=== PATIENT | male | born 1970 | race Caucasian/White ===

== ENCOUNTER 2016-04-09 14:46 | Inpatient (IN) | payer OTHER ==
[~2016-04-09] VITALS: Ht 172.7 cm; Wt 150.5 kg
[~2016-04-09 14:46] MED LIST: ALBINS/ INH; CYCL10TA6 PO; SNG10 PO; VNTHFA/IN INH
[2016-04-09] MEDS ORDERED: SODIUM CHLORIDE 0.9% 1000ML 1,000 ML IV STA (15:05)
[2016-04-09] MEDS ORDERED: SODIUM CHLORIDE 0.9% 1000ML 250 ML IV STA (15:05)
--- NOTE | 2016-04-09 15:05 | EMERGENCY ROOM VISIT NOTE ---
History Report prepared by Zenon: Davian Pérez Under the Supervision of: Dr. Lamberto Kaur M.D. First contact with patient: 15:00 Chief Complaint: STROKE SYMPTOMS Stated Complaint: STROKE SX History of Present Illness The patient is a 45 year old male who presents to the Emergency Room with complaints of acute left-sided weakness. The patient complains of left arm weakness, left sided numbness and tingling, speech slurring and a headache. The patient was last known well at 1415. He was on break at [facility] when the symptoms began. The patient denies any history of strokes, seizures, or diabetes. He does have a history of asthma and COPD. He is not on any blood thinners. This started after he coughed and became unresponsive Source of History: patient, family, EMS Onset: 1415 Position: other (left side) Quality: other (weakness) Timing: other (acute) Associated Symptoms: + headache, + numbness Review of Systems See HPI for pertinent positives & negatives. A total of 10 systems reviewed and were otherwise negative. Past Medical & Surgical Medical Problems: (1) ASTHMA, UNSPECIFIED (2) Body Mass Index 40.0-44.9, Adult (3) CVA (cerebral vascular accident) (4) Esophageal Reflux (5) Hypertension Nos (6) Morbid Obesity (7) Personal History, Pneumonia (Recurrent) (8) Personal Hx Of Tia,& Cerebral Infarction W/Out Res Deficits (9) s/p multiple knee surgeries Old medical records were reviewed. Nurse's notes were reviewed and I agree with. No history of CVA/TIA/arrhythmia He did have right sided weakness about 5 years ago and had a negative workup. Family History Diabetes mellitus Gallbladder disease Hypertension Social History Smoking Status: Never Smoker Alcohol Use: none Drug Use: none Marital Status: single Housing Status: lives with family Occupation Status: employed Current/Historical Medications Scheduled Budesonide/Formoterol Fumarate (Symbicort 160/4.5 Inhaler ), 2 PUFFS INH BID Montelukast Sod (Montelukast Sodium), 10 MG PO HS Scheduled PRN Albuterol Hfa (Ventolin Hfa), 2 PUFFS INH QID PRN for Rescue/Asthma Symptoms Albuterol Sulf (Proventil 0.083% 2.5MG/3ML), 2.5 MG INH Q4HR PRN for SOB/ Wheezing Cyclobenzaprine Hcl (Flexeril), 10 MG PO TID PRN for Muscle Spasms Allergies Coded Allergies: Aspirin (Verified Allergy, Unknown, 04/09/16) Morphine (Verified Adverse Reaction, Intermediate, "FLIP OUT", 04/09/16) Physical Exam Vital Signs Date Time Temp Pulse Resp B/P Pulse Ox O2 Delivery O2 Flow Rate FiO2 04/09/16 17:44 151/112 04/09/16 17:33 88 100 04/09/16 17:29 152/115 04/09/16 17:03 91 98 04/09/16 16:58 191/128 04/09/16 16:44 188/139 04/09/16 16:33 89 97 04/09/16 16:28 167/130 04/09/16 16:16 87 100 04/09/16 16:13 174/114 04/09/16 16:04 167/111 04/09/16 15:58 167/112 04/09/16 15:46 80 100 04/09/16 15:38 82 16 158/108 98 Room Air 04/09/16 15:36 158/108 04/09/16 15:16 92 99 04/09/16 15:07 92 04/09/16 14:55 98 Room Air 04/09/16 14:55 36.8 93 16 124/61 94 Room Air 04/09/16 14:51 124/61 Physical Exam General: Obese middle aged male, appears to be in no acute distress, answers questions appropriately but somewhat slowly. HEENT: Normal cephalic atraumatic. Pupils are equal round and reactive to light. Sclera are anicteric. Extraocular movements are intact. Oropharynx is pink with moist mucous membranes. No swelling of the mouth lips or tongue. Neck: Supple with a midline trachea. No meningeal signs or stiffness, no JVD or bruits. No Stridor. Chest: Clear to auscultation bilaterally. No wheezes or rhonchi. No increased work of breathing. Heart: regular rate and rhythm. Abdomen: Soft nontender, nondistended without rebound guarding or rigidity. Extremities: No cyanosis clubbing or edema. No calf tenderness or assymetry Spine/Back. Non tender to palpation. No CVA tenderness Skin: Good turgor without rashes. Neurologic exam: Cranial nerves two through 12 are intact. Mild weakness of the left arm and leg compared to the right. Medical Decision & Procedures ER Provider Diagnostic Interpretation: X ray results as stated below per my interpretation and radiologist interpretation. Other radiology results as stated below per my review and radiologist interpretation: HEAD CT NONCONTRAST CT DOSE: 623.48 mGy.cm HISTORY: stroke symptoms TECHNIQUE: Multiaxial CT images of the head were performed without the use of intravenous contrast. Automated exposure control was utilized for this study. Comparison: Head CT 04/05/2015. Findings: Mild mucosal thickening within the maxillary sinuses. The mastoid air cells are clear. The calvarium and skull base are intact. The ventricles and sulci are within normal limits. There is no mass, hematoma, midline shift, or acute infarct. Impression: No acute intracranial abnormality. Electronically signed by: Claus Mcgovern M.D. 04/09/2016 3:15 PM Dictated Date/Time: 04/09/2016 3:11 PM CHEST ONE VIEW PORTABLE HISTORY: Atypical CHEST PAIN COMPARISON: Chest 12/09/2015. FINDINGS: There are low lung volumes. The lungs are clear. No pleural effusions. No pneumothorax. The heart remains borderline enlarged. IMPRESSION: No significant change compared to the prior study. No acute process. Electronically signed by: Claus Mcgovern M.D. 04/09/2016 3:41 PM Dictated Date/Time: 04/09/2016 3:40 PM Laboratory Results 04/09/16 15:28 04/09/16 15:28 Test 04/09/16 14:54 04/09/16 15:27 04/09/16 15:28 04/09/16 15:32 Bedside Glucose 87 mg/dl (70-99) Bedside Hemoglobin 15.3 g/dl (14.0-18.0) Bedside Hematocrit 45 % (42-52) Bedside Sodium 141 mEq/L (135-144) Bedside Potassium 4.1 mEq/L (3.3-5.0) Bedside Chloride 101 mEq/L (101-112) Bedside Total CO2 28 mEq/l (24-31) Bedside Blood Urea Nitrogen 16 mg/dl (7-18) Bedside Creatinine 0.8 mg/dl (0.6-1.3) Bedside Glucose (other) 99 mg/dl (70-99) Bedside Ionized Calcium (Liliane) 1.16 mmol/l (1.12-1.32) Red Blood Count 4.68 M/uL (4.7-6.1) Mean Corpuscular Volume 91.7 fL (80-100) Mean Corpuscular Hemoglobin 30.1 pg (25-34) Mean Corpuscular Hemoglobin Concent 32.9 g/dl (32-36) RDW Standard Deviation 45.3 fL (36.4-46.3) RDW Coefficient of Variation 13.7 % (11.5-14.5) Mean Platelet Volume 10.4 fL (7.4-10.4) Prothrombin Time 10.2 SECONDS (9.0-12.0) Prothromb Time International Ratio 1.0 (0.9-1.1) Activated Partial Thromboplast Time 26.9 SECONDS (21.0-31.0) Partial Thromboplastin Ratio 1.0 D-Dimer 410 ug/L FEU (0-500) Anion Gap 8.0 mmol/L (3-11) Est Creatinine Clear Calc Drug Dose 146.8 ml/min Estimated GFR () 116.7 Estimated GFR (Non- 100.7 BUN/Creatinine Ratio 16.3 (10-20) Calcium Level 8.7 mg/dl (8.5-10.1) Total Bilirubin 0.6 mg/dl (0.2-1) Aspartate Amino Transf (AST/SGOT) 26 U/L (15-37) Alanine Aminotransferase (ALT/SGPT) 39 U/L (12-78) Alkaline Phosphatase 137 U/L (45-117) Total Protein 7.2 gm/dl (6.4-8.2) Albumin 3.6 gm/dl (3.4-5.0) Globulin 3.6 gm/dl (2.5-4.0) Albumin/Globulin Ratio 1.0 (0.9-2) Bedside Troponin I 0.000 ng/ml (0-0.045) Test 04/09/16 16:59 Laboratory studies as stated above per my review. Medications Administered Medications (Trade) Dose Ordered Sig/Chapin Route Start Time Stop Time Status Last Admin Dose Admin Sodium Chloride 250 ml @ 999 mls/hr Q16M STAT IV 04/09/16 15:05 04/09/16 15:20 DC 04/09/16 15:46 999 MLS/HR Sodium Chloride (Nss 1000ml) 1,000 ml @ 100 mls/hr Q10H STAT IV 04/09/16 15:05 04/10/16 01:04 04/09/16 16:34 100 MLS/HR Clopidogrel Bisulfate (plAVix TAB) 75 mg NOW ONCE PO 04/09/16 17:00 04/09/16 17:15 DC 04/09/16 17:21 75 MG ECG Indication: weakness Rate (beats per minute): 90 Rhythm: normal sinus Findings: no acute ischemic change, no ectopy Comparison ECG Date: 2015 Change: no significant change ED Course 1500: Past medical records reviewed. The patient was evaluated in room B1, and a complete history and physical examination were performed. 1504: Stroke alert called. 1505: NSS 1000 ml @ 100 mls/hr, NSS 250 ml @ 999 mls/hr. 1535: Patient is markedly improved. He has good pipe connector strength and is able to move his leg, no asphasia. 1538: Dr. Pak, [place] Neurologist, will evaluate the patient through Tele- stroke. 1620: Dr. Pak evaluated the patient. He does not believe that he is a tPA candidate at this time. 1628: Discussed the case with DELROY Pozo, [facility] Hospitalist. The patient will be evaluated. Medical Decision Differential diagnosis includes CVA, TIA, hypoglycemia, anxiety, migraine, electrolyte or metabolic abnormality. This patient comes in as described above. I promptly saw him as he was placed in room B1 with strokelike symptoms. The symptoms occurred about 45 minutes prior to arrival. He apparently coughed and may have passed out and when they arrived he was weak on his left side and had apparent trouble speaking. on my initial evaluation, he sees a doing better .he does have some mild weakness of his left side but has no significant aphasia of those speaking mildly slow. He denies that he hurts anywhere. Denies headache at present. He's had no fever chills or recent illness. denies any shortness of breath. I did call a stroke alert given the timeframe. He had a stat CAT scan of his head was unremarkable. An extensive work-up was obtained, EKG and chest x-ray obtained. by the time, he got back from the CT seem like his symptoms had completely resolved. Dr. Still, the stroke teleneurologist, did evaluate him and agrees and feels he does not need TPA and he thinks this may actually not even be a stroke. It may have been more migrainous or stress related. At this point the patient does need a further stroke workup to rule out the possibility of a TIA or stroke. He has no electrolyte or metabolic abnormalities. He has nothing to suggest infection. He will be admitted to the [facility] team for further treatment and evaluation. Consults Time Called: 1619 Consulting Physician: [facility] Neurologist Returned Call: [phone]: Dr. Pak evaluated the patient. He does not believe that he is a tPA candidate at this time. Additional Consults: Time Called: 1619 Consulted Physician: DELROY Pozo, [facility] Returned Call: 1627 Additional Comments: 1627: [facility] The patient will be evaluated. Impression Primary Impression: TIA (transient ischemic attack) Additional Impression: Left-sided weakness Critical Care Due to the patient's stroke-like symptoms and need to call a code stroke and frequent reassessment and evaluation and discussion with consultants and family , I have personally spent greater than 30 minutes of critical care time in the direct management of this patient. This includes bedside care, interpretation of diagnostic studies, and testing, discussion with consultants, patient, and family members, and other required patient management activities. This 30 minutes is in excess of all separately billable procedures. Scribe Attestation The scribe's documentation has been prepared under my direction and personally reviewed by me in its entirety. I confirm that the note above accurately reflects all work, treatment, procedures, and medical decision making performed by me. Departure Information Dispostion Being Evaluated By Hospitalist Referrals Jeison Gandhi III, M.D. (PCP) Patient Instructions My [facility] Problem Qualifiers
--- NOTE | 2016-04-09 15:16 | DIAGNOSTIC IMAGING REPORT ---
HEAD CT NONCONTRAST CT DOSE: 623.48 mGy.cm HISTORY: stroke symptoms TECHNIQUE: Multiaxial CT images of the head were performed without the use of intravenous contrast. Automated exposure control was utilized for this study. Comparison: Head CT 04/05/2015. Findings: Mild mucosal thickening within the maxillary sinuses. The mastoid air cells are clear. The calvarium and skull base are intact. The ventricles and sulci are within normal limits. There is no mass, hematoma, midline shift, or acute infarct. Impression: No acute intracranial abnormality. Electronically signed by: Claus Mcgovern M.D. 04/09/2016 3:15 PM Dictated Date/Time: 04/09/2016 3:11 PM
[2016-04-09 15:35] LABS: HEMATOCRIT 42.9 % (42-52); MEAN CELL VOLUME 91.7 fL (80-100); MEAN CORPUSCULAR HEMOGLOBIN 30.1 pg (25-34); MEAN CORPUSCULAR HGB CONC 32.9 g/dl (32-36); MEAN PLATELET VOLUME 10.4 fL (7.4-10.4); PLATELET COUNT 250 K/uL (130-400); RED BLOOD COUNT 4.68 M/uL (4.7-6.1); WHITE BLOOD COUNT 11.41 K/uL (4.8-10.8)
--- NOTE | 2016-04-09 15:42 | DIAGNOSTIC IMAGING REPORT ---
CHEST ONE VIEW PORTABLE HISTORY: Atypical CHEST PAIN COMPARISON: Chest 12/09/2015. FINDINGS: There are low lung volumes. The lungs are clear. No pleural effusions. No pneumothorax. The heart remains borderline enlarged. IMPRESSION: No significant change compared to the prior study. No acute process. Electronically signed by: Claus Mcgovern M.D. 04/09/2016 3:41 PM Dictated Date/Time: 04/09/2016 3:40 PM
[2016-04-09 15:43] LABS: ISTAT CREATININE 0.8 mg/dl (0.6-1.3); ISTAT HEMOGLOBIN 15.3 g/dl (14.0-18.0); ISTAT IONIZED CALCIUM 1.16 mmol/l (1.12-1.32)
[2016-04-09] MEDS ORDERED: SYMIN160 INH (15:47)
[2016-04-09 15:55] LABS: BUN/CREATININE RATIO 16.3 (10-20); CALCIUM 8.7 mg/dl (8.5-10.1); CREATININE 0.91 mg/dl (0.60-1.40); POTASSIUM 4.1 mmol/L (3.5-5.1)
[2016-04-09 16:01] LABS: PROTHROMBIN TIME (PATIENT) 10.2 SECONDS (9.0-12.0)
[2016-04-09] MEDS ORDERED: ONDANSETRON INJ 2 MG/ML 2 ML VIAL IV PRN (17:00)
[2016-04-09] MEDS ORDERED: CLOPIDOGREL BISULFATE 75 MG TAB PO ONE (17:00)
[2016-04-09] MEDS ORDERED: NITROGLYCERIN 0.4 MG SL PER TAB CHARGE SL PRN (17:00)
[2016-04-09] MEDS ORDERED: MAGNESIUM HYDROXIDE SUSP 30 ML UDC PO PRN (17:00)
[2016-04-09] MEDS ORDERED: ALBUTEROL 0.083% NEBU SOLN 3 ML VIAL INH PRN (17:00)
[2016-04-09] MEDS ORDERED: ACETAMINOPHEN 325 MG TAB PO PRN (17:00)
[2016-04-09] MEDS ORDERED: PHARMACIST DISCHARGE MED REC CONSULT PRN (17:00)
[2016-04-09] MEDS ORDERED: ALBUTEROL HFA 8 GM INHALER INH PRN (17:00)
[2016-04-09] MEDS ORDERED: CLONIDINE HCL 0.1 MG TAB PO PRN (17:30)
[2016-04-09] MEDS ORDERED: HydrALAZINE HCL 20 MG/ML VIAL IV. PRN (17:30)
--- NOTE | 2016-04-09 18:58 | DIAGNOSTIC IMAGING REPORT ---
BILATERAL CAROTID DOPPLER STUDY HISTORY: Stroke symptoms. COMPARISON: Carotid Doppler 02/18/2009. TECHNIQUE: Real-time, grayscale, and color Doppler sonography of the carotid arteries was performed. Imaging reviewed in the transverse and longitudinal planes. All measurements were calculated based on NASCET criteria. FINDINGS: Antegrade flow is seen in the bilateral vertebral arteries. The brachial pressures are hemodynamically similar. The peak systolic velocity within the right ICA is 81 cm/s. The right systolic ratio is 0.7. The peak systolic velocity within the left ICA is 82 cm/s. The left systolic ratio is 0.6. Slightly elevated velocities within external carotid arteries measuring 142 cm/s on the right and 134 cm/s on the left. IMPRESSION: No hemodynamically significant stenosis seen within the bilateral common or internal carotid arteries. Suspect borderline stenosis of the bilateral external carotid arteries. Electronically signed by: Claus Mcgovern M.D. 04/09/2016 6:57 PM Dictated Date/Time: 04/09/2016 6:55 PM
[2016-04-09 19:09] LABS: FIBRINOGEN* 485 mg/dl (184-400)
--- NOTE | 2016-04-09 19:59 | DIAGNOSTIC IMAGING REPORT ---
Brain MRA HISTORY: Stroke - Attention to [place] TECHNIQUE: 3-D papb-ul-adlycl MRA of the brain was performed without contrast. COMPARISON STUDY: None. FINDINGS: Visualized intracranial internal carotid arteries, distal vertebral arteries, and basilar artery are widely patent. There is no significant stenosis, occlusion, or aneurysm seen within the bilateral ACAs, MCAs, or adjunct professor of voice. IMPRESSION: No significant stenosis, occlusion, or aneurysm within the [place]. Electronically signed by: Claus Mcgovern M.D. 04/09/2016 7:57 PM Dictated Date/Time: 04/09/2016 7:55 PM
[2016-04-09] MEDS ORDERED: GADAVIST IV PRN (20:00)
--- NOTE | 2016-04-09 20:00 | HISTORY & PHYSICAL EXAMINATION ---
DATE OF ADMISSION: 04/09/2016 CHIEF COMPLAINT: Unresponsive episode and left-sided weakness. HISTORY OF PRESENT ILLNESS: This is a 45-year-old male with a past medical history significant for morbid obesity, moderate persistent asthma, allergic rhinitis, anxiety state, history of cervicalgia who presents with stroke-like symptoms. The patient works in [employer] and today he went to have sandwich for his dinner, sitting on the table, suddenly he says he does not remember anything and he was brought in by the ambulance to the hospital. During the ambulance ride, he could be able to speak somewhat but does not remember. After coming to the ER he came back to his usual self, but has some weakness in the left extremities and trouble speaking for a short period of time. His symptoms improved. Stroke alert was called BUT because of the symptoms improving and the CAT scan was negative TPA was not given. Currently patient is lying comfortably, hemodynamically stable, speaking normally, says he has some mild weakness in his left extremities, but otherwise he is doing okay. He also says that he is having cough with yellowish sputum going on for last week and wheezing from his asthma. Denies any fever or chills. Denies any chest pain. Has some mild headache. No blurred visions, no abdominal pain, no nausea, no vomiting. ALLERGIES: ASPIRIN AND MORPHINE. PAST MEDICAL HISTORY: As mentioned above. PAST SURGICAL HISTORY: Knee arthroscopies and repair. MEDICATIONS: The patient is on Ventolin 2 puffs every 4 hours p.r.n., budesonide formoterol 160/4.5 mcg two puffs inhalation b.i.d., albuterol nebulization every 4 hours p.r.n., Singulair 10 mg p.o. daily. FAMILY HISTORY: Significant for father has diabetes and hypertension. Mother has high cholesterol. Sister has depression, asthma and diabetes. SOCIAL HISTORY: Single. No smoking history. Alcohol rare. No drug abuse. REVIEW OF SYMPTOMS: As per HPI. Rest of the review of symptoms negative. PHYSICAL EXAMINATION: GENERAL: The patient is morbidly obese, not in distress. VITAL SIGNS: Temperature 36.8, pulse 87, respiratory rate 16, blood pressure 167/130 and oxygen 100% on room air. HEENT: No pallor, no icterus. Pupils are equal, round and reactive to light. NECK: No JVD, no neck masses, no carotid bruits. CARDIOVASCULAR: S1, S2 heard, regular rate and rhythm, no murmur, no gallop. RESPIRATORY: Clear to auscultation bilaterally. Bilateral wheezing heard. No crackles. ABDOMEN: Soft bowel sounds present. Nontender. No distention. CENTRAL NERVOUS SYSTEM: Power 4/5 in left upper extremity. Rest of the extremities 5/5. Sensation is intact. Position sense intact. Coordination of movements normal. No pronator drift. Babinski negative. EXTREMITIES: No edema, no erythema. LABORATORIES: WBC 11.4, hemoglobin 14.1, hematocrit 42.9, platelets 250. Sodium 143, potassium 4.1, chloride 106, bicarbonate 29, BUN 15, creatinine 0.9, serum glucose 95, calcium 8.7, total bilirubin 0.6, AST 26, ALT 39, alkaline phosphatase is 137, point of care troponin 0.00. PT 10.2, INR 1, PTT 26.9. CT of the head; no acute intracranial abnormalities seen. Chest x-ray; no significant change compared to prior study, no acute process seen. EKG: Normal sinus rhythm with rate of 90. No acute ST changes seen. ASSESSMENT AND PLAN: This is a 45-year-old male, who presents with stroke-like symptoms. 1. Stroke-like symptoms; presented with syncope-like episode and after that had weakness on the left extremities and had slurred speech for short period of time. Currently says mild weakness in the left upper extremity, but can hold his left hand up against gravity. Stroke alert was called, but TPA was not given as symptoms are improving. CAT scan is negative and we will do the full stroke workup with MRI/MRA of the head, carotid Dopplers and echocardiogram.Hypercoagulable workup . We will also do a speech evaluation PT/OT. Neurology consulted and notified. We will also do EEG. PATIENT ALLERGIC TO ASPIRIN; we will place him on Plavix. We will do neuro checks. 2. Mild asthma exacerbation, will continue his home inhalers and place him on Levaquin, and Solu-Medrol. 3. Morbid obesity; may need sleep study as an outpatient. We will do a nocturnal pulse ox while in the hospital. We will also check HbA1c and fasting lipid profile as per stroke workup. 4. Hypertension, could be situational. Will allow permissive hypertension until the stroke workup is completed. We will place him on IV hydralazine p.r.n. for systolic blood pressure greater than 190 or diastolic blood pressure greater than 110. Follow echocardiogram to see for any left ventricular hypertrophy. 5. Deep venous thrombosis prophylaxis: SCDs for now. 6. Disposition: Admit to tele floor. Expect to discharge home and follow with his family doctor. Level 1 full code. MTDD
--- NOTE | 2016-04-09 20:18 | DIAGNOSTIC IMAGING REPORT ---
Brain MRI WITH AND WITHOUT CONTRAST HISTORY: Stroke TECHNIQUE: Multiplanar multisequence MRI of the brain was performed both before and after the intravenous administration of contrast. COMPARISON STUDY: Head CT 04/09/2016. FINDINGS: There are no areas of restricted diffusion to suggest acute infarction. The midline structures are intact. Mild mucosal thickening within the maxillary sinuses. The mastoid air cells are clear. The ventricles and sulci are within normal limits for age. There is no mass, hematoma, midline shift. The major vascular flow-voids at the skull base are well maintained. Postcontrast sequences show no areas of abnormal enhancement. IMPRESSION: No acute intracranial abnormality. Electronically signed by: Claus Mcgovern M.D. 04/09/2016 8:17 PM Dictated Date/Time: 04/09/2016 8:10 PM
[2016-04-09 20:20] VITALS: BP 131/86; PULSE 101; TEMP 36.6; Ht 172.7 cm; Wt 150.5 kg
[2016-04-09] MEDS ORDERED: LEVOFLOXACIN 750 MG TAB PO ONE (21:15)
[2016-04-09] MEDS: METHYLPREDNISOLONE IV 40 MG in SYRINGE 0 ML IV SCH (21:57)
[2016-04-09] MEDS: BUDESONIDE/FORMOTEROL FUMARATE 160/4.5 60 PUFFS/INHALER INH SCH (21:57)
[2016-04-09] MEDS: MONTELUKAST SOD 10 MG TAB PO SCH (21:58)
[2016-04-09] MEDS: SODIUM CHLORIDE 0.9% 1000ML 1,000 ML IV SCH (22:01)
[2016-04-09 23:40] VITALS: BP 147/84; PULSE 90; TEMP 36.6; O2SAT 94
[2016-04-10] VITALS (7 sets, daily range): BP systolic 119–147; BP diastolic 76–93; PULSE 81–90; TEMP 36.6–36.8; O2SAT 94–96
[2016-04-10 00:05] LABS: CKMB/CK RATIO 0.9 (0-3.0)
[2016-04-10 07:29] LABS: BASO % 0.2 %; BASO ABS # 0.02 K/uL (0-0.2); COMPLETE YES; EOS % 0.2 %; HEMATOCRIT 42.5 % (42-52); IG% 0.6 %; LYMPH ABS # 1.38 K/uL (1.2-3.4); MEAN CELL VOLUME 89.7 fL (80-100); MEAN CORPUSCULAR HEMOGLOBIN 29.1 pg (25-34); MEAN CORPUSCULAR HGB CONC 32.5 g/dl (32-36); MEAN PLATELET VOLUME 10.4 fL (7.4-10.4); MONO % 1.8 %; NEUT % 86.2 %; PLATELET COUNT 266 K/uL (130-400); RED BLOOD COUNT 4.74 M/uL (4.7-6.1); WHITE BLOOD COUNT 12.54 K/uL (4.8-10.8)
[2016-04-10 07:50] LABS: BLOOD UREA NITROGEN 13 mg/dl (7-18); BUN/CREATININE RATIO 16.2 (10-20); CALCIUM 8.9 mg/dl (8.5-10.1); CARBON DIOXIDE 25 mmol/L (21-32); CHLORIDE 107 mmol/L (98-107); CREATININE 0.79 mg/dl (0.60-1.40); GLUCOSE 131 mg/dl (70-99); POTASSIUM 4.3 mmol/L (3.5-5.1); SODIUM 141 mmol/L (136-145)
[2016-04-10 08:05] LABS: CHOLESTEROL 180 mg/dl (0-200); CHOLESTEROL/HDL RATIO 2.9; CKMB/CK RATIO 1.1 (0-3.0); HDL CHOLESTEROL 62 mg/dl; LDL CHOLESTEROL CALCULATED 106 mg/dl; TRIGLYCERIDES 61 mg/dl (0-150); VERY LOW DENSITY LIPOPROT CALC 12 mg/dl
[2016-04-10] MEDS: BUDESONIDE/FORMOTEROL FUMARATE 160/4.5 60 PUFFS/INHALER INH SCH ×2 (08:22→19:39)
[2016-04-10] MEDS: CLOPIDOGREL BISULFATE 75 MG TAB PO SCH (08:23)
[2016-04-10] MEDS: ATORVASTATIN 40 MG TAB PO SCH (08:23)
[2016-04-10] MEDS: METHYLPREDNISOLONE IV 40 MG in SYRINGE 0 ML IV SCH (08:23)
[2016-04-10] MEDS: SODIUM CHLORIDE 0.9% 1000ML 1,000 ML IV SCH (08:24)
--- NOTE | 2016-04-10 09:25 | Progress Note ---
Internal Med Progress Note Date of Service: Apr 10, 2016. Provider Documentation: SUBJECTIVE Patient is seen and examined at bedside. Feels well. Has chronic cough secondary to asthma. Denies any expectoration, chest pain. Slurred speech and weakness resolved. Offers no other complaints. OBJECTIVE: Vital Signs-as noted below Physical Exam: General Appearance:Obese, no apparent distress Head: normocephalic, Atraumatic Eyes: normal inspection, EOMI, PERRLA, Anicteric Neck: supple, Trachea midline Respiratory/Chest: decreased breath sounds, No accessory muscle use Cardiovascular: S1, S2, No murmur Abdomen/GI:Soft, Non tender, Bowel sounds present Extremities/Musculoskelatal:normal inspection, no edema Neurologic/Psych:AAOX3, grossly no focal neurological deficits Skin: normal color, warm Lab data as noted below. ASSESSMENT & PLAN: Stroke Like Symptoms: R/O CVA Presented with syncope, LUE weakness and slurred speech: TPA not given as symptoms resolving at time of admission Continue monitoring in Tele Continue Plavix as pt has aspirin allergy Lipid panel:wnl A1C: pending Hypercoagulable work up/EEG/ECHO: pending Neurology consulted PT/OT CT Head/MRI/MRA/Carotid Doppler: No acute process Speech evaluation, Neuro checks Mild Asthma Exacerbation: CXR:No acute process Continue Levaquin, glucocorticoids for now start steroid taper today Mild leukocytosis-likely secondary to steroids Hypertension: Likely situational Currently well controlled IV Hydralazine PRN for SBP/DBP > 190/110 FU ECHO: to look for LVH Morbid Obesity: Needs sleep study as an outpatient. FU nocturnal pulse ox study DVT Px: SCDs Code Status: Full code Disposition: Continue monitoring in Tele: Work up pending Vital Signs: Date Time Temp Pulse Resp B/P Pulse Ox O2 Delivery O2 Flow Rate FiO2 04/10/16 07:46 36.6 86 20 119/86 94 Room Air 04/10/16 04:00 Room Air 04/10/16 03:27 36.7 81 18 130/82 94 Room Air 04/10/16 00:00 Room Air 04/09/16 23:40 36.6 90 18 147/84 94 Room Air 04/09/16 20:30 Room Air 04/09/16 20:20 36.6 101 18 131/86 Room Air 04/09/16 17:44 151/112 04/09/16 17:33 88 100 04/09/16 17:29 152/115 04/09/16 17:03 91 98 04/09/16 16:58 191/128 04/09/16 16:44 188/139 04/09/16 16:33 89 97 04/09/16 16:28 167/130 04/09/16 16:16 87 100 04/09/16 16:13 174/114 04/09/16 16:04 167/111 04/09/16 15:58 167/112 04/09/16 15:46 80 100 04/09/16 15:38 82 16 158/108 98 Room Air 04/09/16 15:36 158/108 04/09/16 15:16 92 99 04/09/16 15:07 92 04/09/16 14:55 98 Room Air 04/09/16 14:55 36.8 93 16 124/61 94 Room Air 04/09/16 14:51 124/61 Lab Results: Results Past 24 Hours Test 04/09/16 14:54 04/09/16 15:27 04/09/16 15:28 04/09/16 15:32 Range/Units Bedside Glucose 87 70-99 mg/dl Bedside Hemoglobin 15.3 14.0-18.0 g/dl Bedside Hematocrit 45 42-52 % Bedside Sodium 141 135-144 mEq/L Bedside Potassium 4.1 3.3-5.0 mEq/L Bedside Chloride 101 101-112 mEq/L Bedside Total CO2 28 24-31 mEq/l Anion Gap 17.0 8.0 3-11 mmol/L Bedside Blood Urea Nitrogen 16 7-18 mg/dl Bedside Creatinine 0.8 0.6-1.3 mg/dl Bedside Glucose (other) 99 70-99 mg/dl Bedside Ionized Calcium (Liliane) 1.16 1.12-1.32 mmol/l White Blood Count 11.41 4.8-10.8 K/uL Red Blood Count 4.68 4.7-6.1 M/uL Hemoglobin 14.1 14.0-18.0 g/dL Hematocrit 42.9 42-52 % Mean Corpuscular Volume 91.7 80-100 fL Mean Corpuscular Hemoglobin 30.1 25-34 pg Mean Corpuscular Hemoglobin Concent 32.9 32-36 g/dl RDW Standard Deviation 45.3 36.4-46.3 fL RDW Coefficient of Variation 13.7 11.5-14.5 % Platelet Count 250 130-400 K/uL Mean Platelet Volume 10.4 7.4-10.4 fL Prothrombin Time 10.2 9.0-12.0 SECONDS Prothromb Time International Ratio 1.0 0.9-1.1 Activated Partial Thromboplast Time 26.9 21.0-31.0 SECONDS Partial Thromboplastin Ratio 1.0 Fibrinogen 485 184-400 mg/dl D-Dimer 410 0-500 ug/L FEU Sodium Level 143 136-145 mmol/L Potassium Level 4.1 3.5-5.1 mmol/L Chloride Level 106 98-107 mmol/L Carbon Dioxide Level 29 21-32 mmol/L Blood Urea Nitrogen 15 7-18 mg/dl Creatinine 0.91 0.60-1.40 mg/dl Est Creatinine Clear Calc Drug Dose 146.8 ml/min Estimated GFR () 116.7 Estimated GFR (Non- 100.7 BUN/Creatinine Ratio 16.3 10-20 Random Glucose 95 70-99 mg/dl Calcium Level 8.7 8.5-10.1 mg/dl Total Bilirubin 0.6 0.2-1 mg/dl Aspartate Amino Transf (AST/SGOT) 26 15-37 U/L Alanine Aminotransferase (ALT/SGPT) 39 12-78 U/L Alkaline Phosphatase 137 45-117 U/L Total Protein 7.2 6.4-8.2 gm/dl Albumin 3.6 3.4-5.0 gm/dl Globulin 3.6 2.5-4.0 gm/dl Albumin/Globulin Ratio 1.0 0.9-2 Bedside Troponin I 0.000 0-0.045 ng/ml Test 04/09/16 23:10 04/10/16 07:00 Range/Units Total Creatine Kinase 252 229 39-308 U/L Creatine Kinase MB 2.2 2.5 0.5-3.6 ng/ml Creatine Kinase MB Ratio 0.9 1.1 0-3.0 Troponin I < 0.015 < 0.015 0-0.045 ng/ml White Blood Count 12.54 4.8-10.8 K/uL Red Blood Count 4.74 4.7-6.1 M/uL Hemoglobin 13.8 14.0-18.0 g/dL Hematocrit 42.5 42-52 % Mean Corpuscular Volume 89.7 80-100 fL Mean Corpuscular Hemoglobin 29.1 25-34 pg Mean Corpuscular Hemoglobin Concent 32.5 32-36 g/dl Platelet Count 266 130-400 K/uL Mean Platelet Volume 10.4 7.4-10.4 fL Neutrophils (%) (Auto) 86.2 % Lymphocytes (%) (Auto) 11.0 % Monocytes (%) (Auto) 1.8 % Eosinophils (%) (Auto) 0.2 % Basophils (%) (Auto) 0.2 % Neutrophils # (Auto) 10.82 1.4-6.5 K/uL Lymphocytes # (Auto) 1.38 1.2-3.4 K/uL Monocytes # (Auto) 0.23 0.11-0.59 K/uL Eosinophils # (Auto) 0.02 0-0.5 K/uL Basophils # (Auto) 0.02 0-0.2 K/uL RDW Standard Deviation 43.9 36.4-46.3 fL RDW Coefficient of Variation 13.4 11.5-14.5 % Immature Granulocyte % (Auto) 0.6 % Immature Granulocyte # (Auto) 0.07 0.00-0.02 K/uL Sodium Level 141 136-145 mmol/L Potassium Level 4.3 3.5-5.1 mmol/L Chloride Level 107 98-107 mmol/L Carbon Dioxide Level 25 21-32 mmol/L Anion Gap 9.0 3-11 mmol/L Blood Urea Nitrogen 13 7-18 mg/dl Creatinine 0.79 0.60-1.40 mg/dl Est Creatinine Clear Calc Drug Dose 167.3 ml/min Estimated GFR () 124.8 Estimated GFR (Non- 107.7 BUN/Creatinine Ratio 16.2 10-20 Random Glucose 131 70-99 mg/dl Calcium Level 8.9 8.5-10.1 mg/dl Triglycerides Level 61 0-150 mg/dl Cholesterol Level 180 0-200 mg/dl HDL Cholesterol 62 mg/dl LDL Cholesterol, Calculated 106 mg/dl VLDL Cholesterol, Calculated 12 mg/dl Cholesterol/HDL Ratio 2.9
[2016-04-10] MEDS ORDERED: LEVOFLOXACIN 750 MG TAB PO SCH (11:00)
--- NOTE | 2016-04-10 12:30 | CONSULTATION REPORT ---
DATE OF CONSULTATION: 04/10/2016 REFERRING PHYSICIAN: Dr. Fernandes. HISTORY OF PRESENT ILLNESS: Yogi is 45 years old and is known to Dr. Gandhi. I have seen him actually on one occasion 9 years ago when he presented with transient left-sided paresthesias followed by a headache. At that point we wondered about the possibility of atypical migraine. He really has not developed any headaches since nor has he had any further events, but was admitted yesterday for what sounds very much like tussive syncope with post-syncopal paresthesias involving the right side ( according to what he reports today whereas yesterday the history suggested a left sided nunbness issue ) He apparently is employed at [employer], has longstanding asthma, COPD, sleep apnea unfortunately not treatable by CPAP because of some local electronics circuit issues in his home, chronic anxiety, cervicalgia, allergic rhinitis and morbid obesity. In this setting then he was going to eat a sandwich on his lunch break. He handed a pickle to a coworker because he did not like them, then he began to cough very vigorously. The storekeeper steward who is visiting him today, was able to see some of the events as he was called later, but he feels that the vigor of his cough was much greater than anything he had ever seen during the exacerbations of COPD Mr Noyola has had in the past. He coughed very heavily and then suddenly lost consciousness or at least had a partial loss of consciousness, remained sitting in a chair, but then began to speak about some tingling in the right side. He may have been a briefly unconscious or at least less than responsive during a lot of this, but he apparently was able to speak and the accounting systems manager tells me he broke in to another coughing episode while trying to get out of the first one. At any rate, he was brought to the ER by ambulance. He has a vague recollection of the ambulance ride and according to the note, he was able to speak, had some numbness and weakness apparently on the right side according to him, but according to the note on the left and a stroke alert was called, but because of the improving symptoms no TPA was luckily given. He was hemodynamically stable, appeared comfortable and laboratory studies, etc., have all been unremarkable. He has had imaging studies including an MRI of the brain. He has had a carotid duplex. He has not had an echo as yet at this point at least as far as I can tell and all studies show no evidence for completed infarct and no significant intracranial or extracranial stenoses. Whether or not as a cardiogenic source of emboli is not yet determined. According to the patient, he is back to normal. He had a little headache, but this has largely gone and again he denies having frequent headaches at all. He is otherwise doing well. He has had no recent infections. He has had no fevers, sweats or chills. Does not have any problems referable to head, eyes, ears, nose and throat, cardiovascular, pulmonary, gastrointestinal or genitourinary systems other than those related to the problems defined above. ALLERGIES: HE HAS ALLERGIES TO ASPIRIN AND MORPHINE. MEDICATIONS: His medications at home include Ventolin, budesonide formoterol 2 puffs twice a day, albuterol nebulizer 4 hours and Singulair 10 mg daily. He has obstructive sleep apnea which has been well documented, but unfortunately every time he turns on his machine the circuit breaker in his rental properly fails and he cannot seem to get this repaired. FAMILY HISTORY: Reveals her father with diabetes and hypertension. Mother with high cholesterol. Sister with depression, asthma and diabetes. SOCIAL HISTORY: Reveals him to be single. He is a nonsmoker. He rarely uses alcohol. He does not abuse drugs. He works at [employer] and has done so for quite some time. REVIEW OF SYSTEMS: Is covered above. Neurologically all he has had is the episode of by my records left-sided paresthesias 9 years ago followed by headache and there was a question of migraine being raised and a negative workup much likely recurrent at that time and the current problem what sounds very much like tussive syncope with post-syncopal paresthesias. He claims the right side perhaps it was the left according to what the history is recorded states. Whatever the case, he is now asymptomatic. PHYSICAL EXAMINATION: GENERAL: Last night revealed him to be morbidly obese. VITAL SIGNS: Temperature was 36.8, pulse was 87, respiratory rate was 16, blood pressure 167/130 and oxygen 100% on room air. HEAD, EYES, EARS, NOSE AND THROAT: Were normal. NECK: Supple. No bruits were heard. LUNGS: Clear, although the breath sounds are quite distant. There was some wheezing heard by the initial examiner. ABDOMEN: Abdomen was obese. Bowel sounds were normal. No palpable organomegaly was noted. EXTREMITIES: Free of significant edema. NEUROLOGIC: Today, his neurologic examination is absolutely normal. He is awake, alert, oriented in 3 spheres. He has normal extraocular movements, normal gross visual acuity to bedside testing, normal ocular fundi on limited exam, normal visual garces, normal facial motility and strength, normal facial sensation, clear speech, tongue protrudes in the midline. He has been up in the monge walking without deficits. There is no cerebellar dysmetria, tremor, tics, choreiform activity, drift or pronation sign. Reflexes are all present, but hypoactive. Toes are downgoing. No Carol's signs are seen. Strength testing is normal. Sensation is intact to vibration, light touch and temperature. DATA: Lab studies are unremarkable and the imaging studies thus far are unremarkable. Echocardiogram is pending. IMPRESSION AND PLAN: At this point, I see nothing about this to suggest other than tussive syncope with some transient paresthesias involving either the left or right sides depending on what history one obtains, that have now cleared and left nothing in their wake on imaging studies or exam to suggest a vascular event. This could have been a hypoperfusion induced transient issue and at this point I do not have sufficient justification to maintain the Plavix treatment that was initiated in the ER. This is a man who really does not like taking pills to begin with and I see no reason to anticoagulate him with antiplatelet drugs at this point unless we find something on the echo. I do not think this man needs an EEG as the history is very suggestive of tussive syncope which may be a vagally mediated response. We will drop by and see him tomorrow, review the echo, but at this point, I do not think neurology has much more to offer. AMANDA
[2016-04-10] MEDS ORDERED: PERFLUTREN LIPID MICROSPHERE (DEFINITY) IV ONE (14:44)
[2016-04-10] MEDS: MONTELUKAST SOD 10 MG TAB PO SCH (22:13)
[2016-04-11 07:09] LABS: BASO % 0.2 %; BASO ABS # 0.04 K/uL (0-0.2); COMPLETE YES; EOS % 0.6 %; HEMATOCRIT 41.2 % (42-52); IG% 1.1 %; LYMPH % 25.5 %; LYMPH ABS # 4.36 K/uL (1.2-3.4); MEAN CELL VOLUME 89.8 fL (80-100); MEAN CORPUSCULAR HEMOGLOBIN 28.8 pg (25-34); MEAN PLATELET VOLUME 10.1 fL (7.4-10.4); MONO % 7.5 %; NEUT % 65.1 %; PLATELET COUNT 244 K/uL (130-400); RED BLOOD COUNT 4.59 M/uL (4.7-6.1); WHITE BLOOD COUNT 17.12 K/uL (4.8-10.8)
[2016-04-11 07:43] VITALS: BP 133/86; PULSE 84; TEMP 36.6; O2SAT 96
[2016-04-11 07:47] LABS: CALCIUM 8.6 mg/dl (8.5-10.1); CREATININE 0.87 mg/dl (0.60-1.40); POTASSIUM 4.1 mmol/L (3.5-5.1)
[2016-04-11 07:48] LABS: ESTIMATED AVERAGE GLUCOSE 123 mg/dl; HA1C FLAG Normal (Normal)
--- NOTE | 2016-04-11 07:50 | ECHOCARDIOGRAM REPORT ---
*NOTICE TO RECEIVING LIBERTARIAN AGENCY This information is strictly Confidential and protected under [place] law. [place] law prohibits you from making any further disclosure of this information unless further disclosure is expressly permitted by the written consent of the person to whom it pertains or is authorized by law. A general authorization for the release of medical or other information is not sufficient for this purpose. Hospital accepts no responsibility if the information is made available to any other person, INCLUDING THE PATIENT. Interpretation Summary * Name: MIRACLE BELLO Study Date: 04/10/2016 02:14 PM BP: 130/82 mmHg * Patient Location: .[id number]\1 HR: 83 * : 1970 (M/d/yyyy) Gender: Male Height: 68 in * Age: 45 yrs Ethnicity: CA Weight: 337 lb * Ordering Physician: Joseph Linton * Referring Physician: Self, Referred * Performed By: Tex Mayer RDCS * * Reason For Study: CVA * BSA: 2.6 m2 * The study was technically difficult. * -- Conclusions -- * The left ventricular wall motion is normal. * The LV Ejection Fraction = 60-65%. * There is mild concentric left ventricular hypertrophy. * The tricuspid regurgitaiton velocity is insufficient to allow calculation of the pulmonary artery systolic pressure. * Diastolic dysfunction, Grade II (pseudonormalization pattern). * No significant valvular pathology. Procedure Details * A complete two-dimensional transthoracic echocardiogram was performed (2D, M-mode, Doppler and color flow Doppler). * The study was technically difficult. * There were technical limitations due to patient'sbody habitus * The study was technically difficult, but visualization was adequate with the administration of Definity ultrasound contrast. * A contrast injection of Definity was performed to improve assessment of LV function. * Contrast was injected into an intravenous site in the right arm. * One vial of Definity ultrasound contrast was diluted in normal saline to a total volume of 10 ml. A total of '3' ml of solution was administered during imaging. * Lot # [id number] of Definity utilized for procedure. * Expiration date . * The attending nurse who injected the contrast agent was MARIN Mak. * A saline contrast injection was performed to assess for cardiac shunting. * The injection was performed through an intravenous line in the right arm. * The attending nurse who injected the saline contrast was MARIN Mak. * A total of 10 cc of agitated saline was given. Left Ventricle * The left ventricle is normal in size. * There is mild concentric left ventricular hypertrophy. * Left ventricular systolic function is normal. * Ejection Fraction = 60-65%. * The left ventricular wall motion is normal. Right Ventricle * The right ventricle is not well visualized. * The right ventricular systolic function is normal as assessed by tricuspid annular plane systolic excursion (TAPSE) (normal >1.5 cm). Atria * The left atrial size is normal. * Right atrial size is normal. * There is no evidence of atrial septal defect, but resolution does not allow assessment for a patent foramen ovale. Mitral Valve * The mitral valve is normal. * There is no mitral valve stenosis. * Significant mitral regurgitation is absent. Tricuspid Valve * The tricuspid valve is normal. * There is no tricuspid stenosis. * Significant tricuspid regurgitation is absent. * The tricuspid regurgitaiton velocity is insufficient to allow calculation of the pulmonary artery systolic pressure. Aortic Valve * The aortic valve is trileaflet. * Aortic stenosis is absent. * There is no significant aortic regurgitation. Pulmonic Valve * The pulmonary valve is not well seen, but the Doppler examination is normal without significant regurgitation or stenosis. Great Vessels * The aortic root and proximal ascending aorta are normal sized. Pericardium/Pleural * There is no pericardial effusion. Great Vessels * Normal inferior vena cava diameter and respiratory variation suggests normal central venous pressure. Left Ventricular Diastolic Function * Diastolic dysfunction, Grade II (pseudonormalization pattern). MMode 2D Measurements and Calculations IVSd 1.5 cm IVSs 2.2 cm LVIDd 4.4 cm LVIDs 2.7 cm LVPWd 1.4 cm LVPWs 2.2 cm IVS/LVPW 1.1 FS 38.6 % EDV(Teich) 89.2 ml ESV(Teich) 27.6 ml EF(Teich) 69.1 % EDV(cubed) 87.1 ml ESV(cubed) 20.2 ml EF(cubed) 76.8 % % IVS thick 47.4 % % LVPW thick 55.4 % LV mass(C)d 255.7 grams LV mass(C)dI 100.2 grams/m\S\2 LV mass(C)s 282.3 grams LV mass(C)sI 110.7 grams/m\S\2 SV(Teich) 61.6 ml SI(Teich) 24.1 ml/m\S\2 SV(cubed) 66.9 ml SI(cubed) 26.2 ml/m\S\2 Ao root diam 3.0 cm Ao root area 7.1 cm\S\2 ACS 1.7 cm LA dimension 4.3 cm asc Aorta Diam 3.0 cm LA/Ao 1.4 LVOT diam 2.0 cm LVOT area 3.1 cm\S\2 LVAd ap4 25.3 cm\S\2 LVLd ap4 7.6 cm EDV(MOD-sp4) 69.0 ml LVAs ap4 13.8 cm\S\2 LVLs ap4 6.2 cm ESV(MOD-sp4) 26.0 ml EF(MOD-sp4) 62.3 % LVAd ap2 21.0 cm\S\2 LVLd ap2 7.2 cm EDV(MOD-sp2) 51.0 ml LVAs ap2 11.9 cm\S\2 LVLs ap2 6.5 cm ESV(MOD-sp2) 19.0 ml EF(MOD-sp2) 62.7 % SV(MOD-sp4) 43.0 ml SI(MOD-sp4) 16.9 ml/m\S\2 SV(MOD-sp2) 32.0 ml SI(MOD-sp2) 12.5 ml/m\S\2 Doppler Measurements and Calculations MV E max sree 96.3 cm/sec MV A max sree 66.6 cm/sec MV E/A 1.4 MV dec time 0.19 sec Ao V2 max 195.5 cm/sec Ao max PG 15.3 mmHg Ao max PG (full) 11.2 mmHg GRAEME(V,A) 1.6 cm\S\2 GRAEME(V,D) 1.6 cm\S\2 LV V1 max PG 4.1 mmHg LV V1 max 100.9 cm/sec PA V2 max 145.4 cm/sec PA max PG 8.5 mmHg
[2016-04-11] MEDS: CLOPIDOGREL BISULFATE 75 MG TAB PO SCH ×2 (08:00→08:17)
[2016-04-11] MEDS: BUDESONIDE/FORMOTEROL FUMARATE 160/4.5 60 PUFFS/INHALER INH SCH ×2 (08:16→22:12)
[2016-04-11] MEDS: ATORVASTATIN 40 MG TAB PO SCH (08:18)
[2016-04-11] MEDS ORDERED: NURSING VERBAL MED ORDER ONE (09:00)
--- NOTE | 2016-04-11 09:08 | Progress Note ---
Internal Med Progress Note Date of Service: Apr 11, 2016. Provider Documentation: SUBJECTIVE Patient is seen and examined at bedside. States having chronic dry cough secondary to asthma. Denies any chest pain, SOB, weakness. Offers no other complaints. OBJECTIVE: Vital Signs-as noted below Physical Exam: General Appearance:Obese, no apparent distress Head: normocephalic, Atraumatic Eyes: normal inspection, EOMI, PERRLA, Anicteric Neck: supple, Trachea midline Respiratory/Chest: decreased breath sounds, CTA, No accessory muscle use Cardiovascular: S1, S2, No murmur Abdomen/GI:Soft, Non tender, Bowel sounds present Extremities/Musculoskelatal:normal inspection, no edema Neurologic/Psych:AAOX3, grossly no focal neurological deficits Skin: normal color, warm Lab data as noted below. ASSESSMENT & PLAN: Stroke Like Symptoms: R/O CVA Tussive Syncope likely Vasovagal Presented with syncope, LUE weakness and slurred speech: TPA not given as symptoms resolving at time of admission Discontinue Plavix Lipid panel:wnl A1C: 5.9: High risk for Diabetes: Encourage lifestyle modifications Hypercoagulable work up:pending ECHO: Diastolic dysfunction, Grade II, Normal LV function No signs of decompensation Needs follow up as outpatient Appreciate Neurology input PT/OT CT Head/MRI/MRA/Carotid Doppler: No acute process Symptoms resolved EEG:Negative Mild Asthma Exacerbation: CXR:No acute process Discontinue Levaquin Continue steroid taper Leukocytosis-likely secondary to steroids, check procalcitonin Hypertension: Not no meds at home IV Hydralazine PRN for SBP/DBP > 190/110 ECHO: mild concentric LVH, Grade II diastolic dysfunction Will start on Lasix 20mg daily Morbid Obesity/Obstructive Sleep Apnea: Patient had 3 sleep studies as outpatient Does not use CPAP as having electrical issues at home Willing to use Oxygen at night Follow up Nocturnal pulse ox/2 step DVT Px: SCDs Code Status: Full code Disposition: Likely discharge in next 24-48 hours if stable Needs Oxygen arranged per Nocturnal/2 step study Needs Leave of absence Note Follow up with in 1 week PROCEDURES: ECHO: The left ventricular wall motion is normal. Ejection Fraction = 60-65%. There is mild concentric left ventricular hypertrophy. The tricuspid regurgitaiton velocity is insufficient to allow calculation of the pulmonary artery systolic pressure. Diastolic dysfunction, Grade II (pseudonormalization pattern). No significant valvular pathology. Vital Signs: Date Time Temp Pulse Resp B/P Pulse Ox O2 Delivery O2 Flow Rate FiO2 04/11/16 16:07 36.7 90 20 146/92 93 04/11/16 16:00 96 Room Air 04/11/16 08:45 Room Air 04/11/16 07:43 36.6 84 20 133/86 96 Room Air 04/11/16 00:00 Room Air 04/10/16 23:33 36.6 89 20 133/76 95 Room Air Lab Results: Results Past 24 Hours Test 04/11/16 06:57 04/11/16 09:51 Range/Units White Blood Count 17.12 4.8-10.8 K/uL Red Blood Count 4.59 4.7-6.1 M/uL Hemoglobin 13.2 14.0-18.0 g/dL Hematocrit 41.2 42-52 % Mean Corpuscular Volume 89.8 80-100 fL Mean Corpuscular Hemoglobin 28.8 25-34 pg Mean Corpuscular Hemoglobin Concent 32.0 32-36 g/dl Platelet Count 244 130-400 K/uL Mean Platelet Volume 10.1 7.4-10.4 fL Neutrophils (%) (Auto) 65.1 % Lymphocytes (%) (Auto) 25.5 % Monocytes (%) (Auto) 7.5 % Eosinophils (%) (Auto) 0.6 % Basophils (%) (Auto) 0.2 % Neutrophils # (Auto) 11.14 1.4-6.5 K/uL Lymphocytes # (Auto) 4.36 1.2-3.4 K/uL Monocytes # (Auto) 1.29 0.11-0.59 K/uL Eosinophils # (Auto) 0.11 0-0.5 K/uL Basophils # (Auto) 0.04 0-0.2 K/uL RDW Standard Deviation 44.4 36.4-46.3 fL RDW Coefficient of Variation 13.6 11.5-14.5 % Immature Granulocyte % (Auto) 1.1 % Immature Granulocyte # (Auto) 0.18 0.00-0.02 K/uL Sodium Level 143 136-145 mmol/L Potassium Level 4.1 3.5-5.1 mmol/L Chloride Level 107 98-107 mmol/L Carbon Dioxide Level 27 21-32 mmol/L Anion Gap 9.0 3-11 mmol/L Blood Urea Nitrogen 14 7-18 mg/dl Creatinine 0.87 0.60-1.40 mg/dl Est Creatinine Clear Calc Drug Dose 151.9 ml/min Estimated GFR () 120.0 Estimated GFR (Non- 103.5 BUN/Creatinine Ratio 16.0 10-20 Random Glucose 101 70-99 mg/dl Calcium Level 8.6 8.5-10.1 mg/dl Procalcitonin < 0.05 0-0.5 ng/mL
[2016-04-11] MEDS ORDERED: FUROSEMIDE 20 MG TAB PO ONE (10:00)
[2016-04-11 16:00] VITALS: O2SAT 96
[2016-04-11 16:07] VITALS: BP 146/92; PULSE 90; TEMP 36.7; O2SAT 93
--- NOTE | 2016-04-11 17:02 | PROGRESS NOTE ---
DATE: 04/11/2016 SUBJECTIVE: Yogi has been moved up to the fourth floor. He is doing well. He was sleeping today when I came in, but could easily be awakened and I did not notice any apnea while observing him for the first few minutes. He has had no further symptoms. He tells me now that symptoms did involve in his left side and not the right, but the issue is academic in that everything was transient and has cleared completely leaving no evidence for a completed stroke on MRI and nothing else on imaging studies to suggest an alternative explanation. His echocardiogram is fine with the exception of some left ventricular hypertrophy, concentric typed and there is no right ventricular hypertrophy or right atrial enlargement. There is some tricuspid regurgitation; however, but this is minor. At this point, everything so far shows no evidence for a vascular event. An EEG was done which I did not think was necessary and is normal, so we do not have to worry about a seizure. I think this is a case of tussive syncope with a post-syncopal event, transient episode of left-sided numbness and right-sided headache and similar to what he has had before. At any rate, I do not think we need to treat this with antiplatelet drugs. He is sensitive to aspirin, so I am not going to push that issue either. As far as I am concerned from a neurologic point of view, he could probably be discharged unless his attending physician feels that the cardiology or pulmonary services need to get re-involved in his case. The only outstanding variable I think is the fact that this man does have sleep apnea, cannot be successfully treated because of some local electric circuitry issues in his home and I wonder if an alternative approach might not be advisable. AMANDA
[2016-04-11] MEDS: MONTELUKAST SOD 10 MG TAB PO SCH (22:12)
[2016-04-12 00:28] VITALS: BP 126/69; PULSE 91; TEMP 36.9; O2SAT 96
--- NOTE | 2016-04-12 07:02 | ELECTROENCEPHALOGRAPH REPORT ---
Dr. Linton ordered it. CLINICAL DIAGNOSIS: Tussive syncope with transient paresthesias of extremities. ELECTROENCEPHALOGRAM DIAGNOSIS: Essentially normal during wakefulness and drowsiness. DESCRIPTION OF TRACING: This EEG was done as a bedside recording. No activation procedures were utilized. Brief episodes of drowsiness are seen. A simultaneous video analysis of patient movement and behavior was obtained. During wakefulness, there is evidence for normal appearing background rhythm in the alpha range of up to 9-10 Hz of maximum frequency and 30 microvolts of maximum amplitude. This is maximum posterior head regions bilaterally symmetrical. Polymorphic mid frequency theta activity is seen over all head regions without clear focal or regional predominance. This activity does increase in amplitude and diminish in frequency during the episodes of drowsiness at which point the alpha rhythm goes through a similar pattern and there is some waveforms in the delta range that emerged. None of this is sustained and fully developed stages of sleep are not seen. During wakefulness, Beta activity is seen bifrontally in a symmetrical fashion. At no time during the waking tracing or during the brief episodes of drowsiness recording is there evidence for potentially epileptogenic activity in the form of polyspike or spike wave bursts, focal sharp waves or focal spikes. INTERPRETATION: This EEG is essentially normal during wakefulness and drowsiness without evidence for focal or generalized encephalopathy and without evidence for potentially epileptogenic activity.
[2016-04-12 07:31] VITALS: BP 123/83; PULSE 69; TEMP 36.6; O2SAT 95
[2016-04-12] MEDS ORDERED: FUROSEMIDE 20 MG TAB PO SCH (08:00)
[2016-04-12 08:12] LABS: HEMATOCRIT 42.3 % (42-52); MEAN CELL VOLUME 92.4 fL (80-100); MEAN CORPUSCULAR HEMOGLOBIN 29.9 pg (25-34); MEAN CORPUSCULAR HGB CONC 32.4 g/dl (32-36); MEAN PLATELET VOLUME 10.5 fL (7.4-10.4); PLATELET COUNT 242 K/uL (130-400); RED BLOOD COUNT 4.58 M/uL (4.7-6.1); WHITE BLOOD COUNT 15.88 K/uL (4.8-10.8)
[2016-04-12] MEDS: BUDESONIDE/FORMOTEROL FUMARATE 160/4.5 60 PUFFS/INHALER INH SCH (08:15)
[2016-04-12 08:40] LABS: BUN/CREATININE RATIO 16.8 (10-20); CALCIUM 8.5 mg/dl (8.5-10.1); CREATININE 0.92 mg/dl (0.60-1.40)
[2016-04-12 08:55] LABS: BASO % 0.3 %; BASO ABS # 0.05 K/uL (0-0.2); COMPLETE YES; EOS % 1.2 %; IG% 1.8 %; LYMPH % 35.6 %; LYMPH ABS # 5.66 K/uL (1.2-3.4); MONO % 5.7 %; NEUT % 55.4 %
--- NOTE | 2016-04-12 11:03 | Progress Note ---
Internal Med Progress Note Date of Service: Apr 12, 2016. Provider Documentation: SUBJECTIVE Patient is seen and examined at bedside. Feels well. Denies chest pain, SOB, weakness, dizziness. Offers no other complaints. OBJECTIVE: Vital Signs-as noted below Physical Exam: General Appearance:Obese, no apparent distress Head: normocephalic, Atraumatic Eyes: normal inspection, EOMI, PERRLA, Anicteric Neck: supple, Trachea midline Respiratory/Chest: Normal breath sounds, CTA, No accessory muscle use Cardiovascular: S1, S2, No murmur Abdomen/GI:Soft, Non tender, Bowel sounds present Extremities/Musculoskelatal:normal inspection, no edema Neurologic/Psych:AAOX3, grossly no focal neurological deficits Skin: normal color, warm Lab data as noted below. ASSESSMENT & PLAN: Stroke Like Symptoms: R/O CVA Tussive Syncope likely Vasovagal Presented with syncope, LUE weakness and slurred speech: TPA not given as symptoms resolving at time of admission Discontinue Plavix Lipid panel:wnl A1C: 5.9: High risk for Diabetes: Encourage lifestyle modifications Hypercoagulable work up:pending ECHO: Diastolic dysfunction, Grade II, Normal LV function No signs of decompensation Needs follow up as outpatient Appreciate Neurology input PT/OT CT Head/MRI/MRA/Carotid Doppler: No acute process Symptoms resolved EEG:Negative No indication for antiplatelets Mild Asthma Exacerbation: CXR:No acute process Discontinue Levaquin Continue steroid taper Leukocytosis-likely secondary to steroids procalcitonin: wnl, Afebrile Hypertension: Not no meds at home IV Hydralazine PRN for SBP/DBP > 190/110 ECHO: mild concentric LVH, Grade II diastolic dysfunction BP controlled Continue Lasix 20mg daily Morbid Obesity/Obstructive Sleep Apnea: Patient had 3 sleep studies as outpatient Does not use CPAP as having electrical issues at home Advised to use CPAP at night regularly DVT Px: SCDs Code Status: Full code Disposition: Plan to discharge home today Follow up with on 04/18/16 at 9:10 AM PROCEDURES: ECHO: The left ventricular wall motion is normal. Ejection Fraction = 60-65%. There is mild concentric left ventricular hypertrophy. The tricuspid regurgitaiton velocity is insufficient to allow calculation of the pulmonary artery systolic pressure. Diastolic dysfunction, Grade II (pseudonormalization pattern). No significant valvular pathology. Vital Signs: Date Time Temp Pulse Resp B/P Pulse Ox O2 Delivery O2 Flow Rate FiO2 04/12/16 08:00 Room Air 04/12/16 07:31 36.6 69 18 123/83 95 Room Air 04/12/16 00:28 36.9 91 20 126/69 96 Room Air 04/11/16 23:59 Room Air 04/11/16 16:07 36.7 90 20 146/92 93 04/11/16 16:00 96 Room Air Lab Results: Results Past 24 Hours Test 04/12/16 08:00 Range/Units White Blood Count 15.88 4.8-10.8 K/uL Red Blood Count 4.58 4.7-6.1 M/uL Hemoglobin 13.7 14.0-18.0 g/dL Hematocrit 42.3 42-52 % Mean Corpuscular Volume 92.4 80-100 fL Mean Corpuscular Hemoglobin 29.9 25-34 pg Mean Corpuscular Hemoglobin Concent 32.4 32-36 g/dl Platelet Count 242 130-400 K/uL Mean Platelet Volume 10.5 7.4-10.4 fL Neutrophils (%) (Auto) 55.4 % Lymphocytes (%) (Auto) 35.6 % Monocytes (%) (Auto) 5.7 % Eosinophils (%) (Auto) 1.2 % Basophils (%) (Auto) 0.3 % Neutrophils # (Auto) 8.79 1.4-6.5 K/uL Lymphocytes # (Auto) 5.66 1.2-3.4 K/uL Monocytes # (Auto) 0.91 0.11-0.59 K/uL Eosinophils # (Auto) 0.19 0-0.5 K/uL Basophils # (Auto) 0.05 0-0.2 K/uL RDW Standard Deviation 46.8 36.4-46.3 fL RDW Coefficient of Variation 13.9 11.5-14.5 % Immature Granulocyte % (Auto) 1.8 % Immature Granulocyte # (Auto) 0.28 0.00-0.02 K/uL Red Blood Cell Morphology Unremarkable Sodium Level 142 136-145 mmol/L Potassium Level 4.0 3.5-5.1 mmol/L Chloride Level 104 98-107 mmol/L Carbon Dioxide Level 30 21-32 mmol/L Anion Gap 8.0 3-11 mmol/L Blood Urea Nitrogen 16 7-18 mg/dl Creatinine 0.92 0.60-1.40 mg/dl Est Creatinine Clear Calc Drug Dose 143.7 ml/min Estimated GFR () 115.2 Estimated GFR (Non- 99.4 BUN/Creatinine Ratio 16.8 10-20 Random Glucose 88 70-99 mg/dl Calcium Level 8.5 8.5-10.1 mg/dl
[2016-04-12] MEDS ORDERED: PRED10TA PO (11:08)
[2016-04-12] MEDS ORDERED: LSX20 PO (11:08)
--- NOTE | 2016-04-12 11:20 | Discharge Summary ---
Discharge Summary Admission Date: Apr 09, 2016 at 17:09 Discharge Date: Apr 12, 2016 Discharge Disposition: Home Principal Diagnosis: Tussive Syncope likely Vasovagal ; Asthma exacerbation Procedures: MRI Brain: No acute intracranial abnormality Carotid duplex: No hemodynamically significant stenosis seen within the bilateral common or internal carotid arteries. Suspect borderline stenosis of the bilateral external carotid arteries. MRA: No significant stenosis, occlusion, or aneurysm within the [place]. CXR: No significant change compared to the prior study. No acute process. EEG: This EEG is essentially normal during wakefulness and drowsiness without evidence for focal or generalized encephalopathy and without evidence for potentially epileptogenic activity. Consultations: Neurology Pending Studies/Follow-Up: Follow up with on 04/19/16 at 11:10AM Take medications as prescribed Use CPAP machine regularly as advised Seek immediate medical attention if your symptoms reoccur or worsen Use 2L of oxygen at bedtime as advised and Follow up with your doctor Medication Reconciliation New Medications: Prednisone Tab (Prednisone) 10 Mg Tab 10 MG PO UD for 5 Days, #7 TAB Start taking 20mg daily for 2 days and then 10mg dailoy for 3 days and stop. Furosemide (Furosemide) 20 Mg Tab 20 MG PO QAM for 30 Days, #30 TAB Continued Medications: Albuterol Hfa (Ventolin Hfa) 200 Puffs/77573 Mcg Aers 2 PUFFS INH QID PRN for Rescue/Asthma Symptoms Albuterol Sulf (Proventil 0.083% 2.5MG/3ML) 2.5 Mg/3 Ml Nebu 2.5 MG INH Q4HR PRN for SOB/Wheezing Budesonide/Formoterol Fumarate (Symbicort 160/4.5 Inhaler ) Aero 2 PUFFS INH BID, INHALER Cyclobenzaprine Hcl (Flexeril) 10 Mg Tab 10 MG PO TID PRN for Muscle Spasms, TAB Montelukast Sod (Montelukast Sodium) 10 Mg Tab 10 MG PO HS Admission Information HPI (per Admitting provider): CHIEF COMPLAINT: Unresponsive episode and left-sided weakness. HISTORY OF PRESENT ILLNESS: This is a 45-year-old male with a past medical history significant for morbid obesity, moderate persistent asthma, allergic rhinitis, anxiety state, history of cervicalgia who presents with stroke-like symptoms. The patient works in [employer] and today he went to have sandwich for his dinner, sitting on the table, suddenly he says he does not remember anything and he was brought in by the ambulance to the hospital. During the ambulance ride, he could be able to speak somewhat but does not remember. After coming to the ER he came back to his usual self, but has some weakness in the left extremities and trouble speaking for a short period of time. His symptoms improved. Stroke alert was called BUT because of the symptoms improving and the CAT scan was negative TPA was not given. Currently patient is lying comfortably, hemodynamically stable, speaking normally, says he has some mild weakness in his left extremities, but otherwise he is doing okay. He also says that he is having cough with yellowish sputum going on for last week and wheezing from his asthma. Denies any fever or chills. Denies any chest pain. Has some mild headache. No blurred visions, no abdominal pain, no nausea, no vomiting. Physical Exam (per Admitting): PHYSICAL EXAMINATION: GENERAL: The patient is morbidly obese, not in distress. VITAL SIGNS: Temperature 36.8, pulse 87, respiratory rate 16, blood pressure 167/130 and oxygen 100% on room air. HEENT: No pallor, no icterus. Pupils are equal, round and reactive to light. NECK: No JVD, no neck masses, no carotid bruits. CARDIOVASCULAR: S1, S2 heard, regular rate and rhythm, no murmur, no gallop. RESPIRATORY: Clear to auscultation bilaterally. Bilateral wheezing heard. No crackles. ABDOMEN: Soft bowel sounds present. Nontender. No distention. CENTRAL NERVOUS SYSTEM: Power 4/5 in left upper extremity. Rest of the extremities 5/5. Sensation is intact. Position sense intact. Coordination of movements normal. No pronator drift. Babinski negative. EXTREMITIES: No edema, no erythema. Hospital Course Stroke Like Symptoms: R/O CVA Tussive Syncope likely Vasovagal Presented with syncope, LUE weakness and slurred speech: TPA not given as symptoms resolving at time of admission Discontinue Plavix Lipid panel:wnl A1C: 5.9: High risk for Diabetes: Encourage lifestyle modifications Hypercoagulable work up:pending ECHO: Diastolic dysfunction, Grade II, Normal LV function No signs of decompensation Needs follow up as outpatient Appreciate Neurology input PT/OT CT Head/MRI/MRA/Carotid Doppler: No acute process Symptoms resolved EEG:Negative No indication for antiplatelets Mild Asthma Exacerbation: CXR:No acute process Discontinue Levaquin Continue steroid taper Leukocytosis-likely secondary to steroids procalcitonin: wnl, Afebrile Hypertension: Not no meds at home IV Hydralazine PRN for SBP/DBP > 190/110 ECHO: mild concentric LVH, Grade II diastolic dysfunction BP controlled Continue Lasix 20mg daily Morbid Obesity/Obstructive Sleep Apnea: Patient had 3 sleep studies as outpatient Does not use CPAP as having electrical issues at home Advised to use CPAP at night regularly DVT Px: SCDs Code Status: Full code Disposition: Plan to discharge home today Follow up with on 04/18/16 at 9:10 AM PROCEDURES: ECHO: The left ventricular wall motion is normal. Ejection Fraction = 60-65%. There is mild concentric left ventricular hypertrophy. The tricuspid regurgitaiton velocity is insufficient to allow calculation of the pulmonary artery systolic pressure. Diastolic dysfunction, Grade II (pseudonormalization pattern). No significant valvular pathology. Total time spent on discharge = 40 minutes This includes examination of the patient, discharge planning, medication reconciliation, and communication with other providers. Discharge Instructions Discharge Instructions Admission Reason for Admission: CVA Discharge Discharge Diagnosis / Problem: Syncope, Asthma Exacerbation Discharge Goals Goal(s): Decrease discomfort, Improve function Activity Recommendations Activity Limitations: resume your previous activity Exercise/Sports Limitations: as tolerated Driving or Machine Use: resume 1 day after discharge . Instructions / Follow-Up Instructions / Follow-Up Follow up with on 04/19/16 at 11:10AM Take medications as prescribed Use CPAP machine regularly as advised Seek immediate medical attention if your symptoms reoccur or worsen Follow up with your doctor regarding need for oxygen at night as advised Current Hospital Diet Patient's current hospital diet: AHA Diet (Heart Healthy) Discharge Diet Recommended Diet: AHA Diet (Heart Healthy) Pending Studies Studies pending at discharge: yes List of pending studies: Hypercoaguable work up Laboratory Results Hemoglobin A1c Test 04/10/16 07:00 Range/Units Estimated Average Glucose 123 mg/dl Hemoglobin A1c 5.9 H 4.5-5.6 % Lipid Panel Test 04/10/16 07:00 Range/Units Triglycerides Level 61 0-150 mg/dl Cholesterol Level 180 0-200 mg/dl HDL Cholesterol 62 mg/dl Cholesterol/HDL Ratio 2.9 LDL Cholesterol, Calculated 106 mg/dl Medical Emergencies . Who to Call and When: Medical Emergencies: If at any time you feel your situation is an emergency, please call 911 immediately. . Non-Emergent Contact Non-Emergency issues call your: Primary Care Provider Call Non-Emergent contact if: you have a fever, you have any medication questions . . "Provider Documentation" section prepared by Hilario Mejias. VTE Core Measure Inpt VTE Proph given/why not?: SCD's
[2016-04-12 11:32] VITALS: BP 123/83; PULSE 69; TEMP 36.6; O2SAT 95
[2016-04-13 07:04] LABS: FACTOR VIII ACTIV**SEND TO GMC 175 % (55 - 145)
[2016-04-15 19:37] LABS: ANTITHROMBINIII ACTIVITY** 88 % activity (80-120); B2 GLYCOPROTEIN IGA <9 SAU (<=20); B2 GLYCOPROTEIN IGG <9 SGU (<=20); B2 GLYCOPROTEIN IGM <9 SMU (<=20); LUPUS ANTICOAGULANT** TC36573X Negative (Negative); PROTEIN C ACTIVITY** TC 1777X 132 % (70-180); PROTEIN S ACT(FUNCT)**1779X 98 % (70-150)
== END 2016-04-12 14:00 | disposition home or self-care (01) | DRG 312 ==
LOC: ENRESERVDT → ENRESERVTM → C.EDB 14:46 → EDBD 14:46 → C.2T 17:09 → C.MS4W 04-10 14:15
PROVIDERS: ADMIT Family Medicine; ATTEND Internal Medicine
DX: R55 Syncope and collapse (principal); J45.901 Unspecified asthma with (acute) exacerbation; Z68.43 Body mass index [BMI] 50.0-59.9, adult; E66.01 Morbid (severe) obesity due to excess calories; J44.9 Chronic obstructive pulmonary disease, unspecified; G47.33 Obstructive sleep apnea (adult) (pediatric); T38.0X5A Adverse effect of glucocorticoids and synthetic analogues, initial encounter; R47.81 Slurred speech; R53.1 Weakness; I10 Essential (primary) hypertension; I07.1 Rheumatic tricuspid insufficiency; Z79.51 Long term (current) use of inhaled steroids; Z79.899 Other long term (current) drug therapy; Z87.01 Personal history of pneumonia (recurrent)

== ENCOUNTER → 2016-07-19 | Outpatient (CLI) | payer OTHER ==
[~2016-07-19] MED LIST changes: +ANTIBIOTIC PO; +FURO-85 PO; +LSX20 PO; +STEROID PO; +SYMIN160 INH
--- NOTE | 2016-07-20 05:56 | PAP/PSG TECHNICIAN REPORT ---
[facility] Psychiatric Aides Teacher Polysomnogram Report Study name: None Report date: 07/20/2016 Study date: 07/19/2016 Referring Physician: Tamela NOLEN M.D. Name: MIRACLE BELLO Interpreting Physician: Rosita Nolen M.D. Date of : 1970 Psychiatric Aides Teacher: Joseph Hussein RPSGT. Sex: Male Age: 45 StudyType: PSG Weight: 331 lbs 20 inches Height: 45 years, Height 5' 8.5" Neck Circum: BMI: 49.59 Medications: NAPROSYN 500 MG, LASIX 20 MG, KLOR-CON 10, VENTOLIN HFA 108 90 BASE, BUDESONIDE-FORMOTEROL, SINGULAIR 10 MG Patient History PATIENT HAD A SLEEP STUDY DONE IN 2004 AND WAS POSITIVE FOR RUPINDER WITH AN AHI OF 16.6/HR. HE WORE CPAP FOR A SHORT TIME BUT WAS UNABLE TO TOLERATE IT. HE CURRENTLY WEARS OXYGEN AT NIGHT. HE IS HERE TODAY FOR AN EVALUATION OF RUPINDER. ESS = 9 RM 4 Parameters Monitored NPSG: E1-M2, E2-M1, Fp1-M2, Fp2-M1, F3-M2, F4-M2, F4-M1, C3-M2, C4-M2, C4-M1, O1-M2, O2-M2, O2-M1, T3-M2, T4-M1, P3-M2, P4-M1, CHIN1, CHIN2, HR, EKG, Legs, PFLOW, SNOR, FLOW, CFLOW, Tidal Volume, THOR, ABDO, SpO2, PLTH, CPRESS, ETCO2 Wave, ETCO2, pH Sleep Architecture Sleep Stages Time at Lights Off 9:24:07 PM STAGES Time (min.) TST (%) Time at Lights On 5:25:37 AM Wake 254.5 -- Total Recording Time (TRT) 482.50 min. N1 12.5 6 Total Sleep Period (TSP) 403.0 min. N2 176.0 78 Total Sleep Time (TST) 227.0min. N3 0.0 0 Awake Time 255.5 min. REM 38.5 17 Wake after Sleep Onset 181.5 min. Sleep Efficiency (SE) 47 % Sleep Onset Latency (OLI) 73.0 min. Number of Stage 1 Shifts None Awakenings 13 Stage Changes 52 Number of REM periods 6 REM 38.5 17 REM Latency 89.5 min. NREM 188.5 83 Body Position Analysis Supine Right Left Side Prone Vertical Total Sleep Time (min.) 213.9 93.0 77.0 170.02 0.0 0.0 Total Sleep Time (%) 25% 41% 34% 75 0% N/A% Total Sleep Time REM (min.) 24.5 6.5 7.5 None 0.0 0.0 Total Sleep Time NREM (min.) 32.5 86.5 69.5 None 0.0 0.0 Intermittent Wake (min.) 156.9 80.8 16.8 None 0.0 0.0 Total Sleep Period (%) 37% None None None None None Arousals Myoclonus (PLM) * Events Count Index Events Count Index Spontaneous 9 2 Events Awake (PLMW) 238 56.1 Respiratory 14 4.8 Events Asleep w/ Arousal (PLMA) 2 0.5 PLM 1 1 Events Asleep w/o Arousal (PLMS) 12 3.2 Snoring 0 0 Total Asleep 14 3.7 Total 24 6 Total 252 31 Respiratory Analysis * CA OA MA CH H RERA Total Count 0 16 0 0 94 0 110 Index 0.0 4.2 0.0 0 24.8 0 29.1 Mean Duration 0.0 15.6 0.0 0.00 20.0 0.0 19.3 Longest Duration 0.0 30.5 0.0 0.00 0.0 0.0 40.3 Respiratory Event Summary Total Supine ~Supine Right Left Prone REM NREM Apneas Count 16 1 15 12 3 N/A 4 12 Index 4.2 1 5 7.7 2.3 N/A 6 4 Hypopneas (4% Desat) Count 94 32 62 26 36 N/A 41 53 Index 24.8 33.7 22 16.8 28.1 N/A 63.9 16.9 Apneas & All Hypopneas Count 110 33 77 38 39 N/A 45 65 Index 29.1 35 27 25 30 N/A 70.1 20.7 Respiratory Events (Laboratory Technician+All Hyp+RERA) Count 110 33 77 38 39 N/A 45 65 Index 29.1 35 27 24.5 30.4 N/A 70.1 20.7 Respiratory Related Arousal Count 14 33 13 6 7 N/A 4 14 Index 4.8 5 5 4 5 N/A 6 4 Snoring Analysis Supine Right Left Prone REM NREM Total Snore duration 15.8 min Snores count 38 585 158 N/A 86 695 781 Snore mean duration 1.2 Sec Snores index 40 377 123 N/A 134.0 221.2 206.4 TST with snoring (%) 7.0% SpO2 Analysis Total REM NREM Awake <50% 0.0 min. 0.0 min. 0.0 min. 0.0 min. 51 - 60% 0.0 min. 0.0 min. 0.0 min. 0.0 min. 61 - 70% 0.0 min. 0.0 min. 0.0 min. 0.0 min. 71 - 80% 3.9 min. 3.3 min. 0.3 min. 0.2 min. 81 - 90% 38.1 min. 21.8 min. 11.7 min. 4.7 min. 91 - 100% 427.7 min. 13.4 min. 176.5 min. 237.9 min. Average 93 88 93 94 Minimum SpO2 75 75 77 77 Desaturation Event Index 16.8 77.9 19.1 5.9 # Desat. Events below 89% 69 46 20 3 Time(%) with Saturation below 89% 5.6 3.9 0.9 0.8 Time(min.) with Saturation below 89% 26.4 18.5 4.3 3.6 Heart Rate Analysis End Tidal CO2 Analysis Min (bpm) Max (bpm) Average (bpm) TSP (mins) % of TSP Awake 50 265 86 Above 55 mmHg 52.3 23.1 NREM 53 104 78 50-55 mmHg 145.6 64.1 REM 53 96 76 45-50 mmHg 19.9 8.8 Overall 53 104 77 40-45 mmHg 6.0 2.6 35-40 mmHg 1.9 0.8 30-35 mmHg 0.6 0.3 Average ETCO2 0.0 Supplemental O2 Values Minimum O2 level: None Value Start Time End Time Psychiatric Aides Teacher Comments Mr. Blelo slept in the right, left and supine positions. No cardiac arrhythmia noted. Leg movements noted. No bruxism noted. Snoring was noted and scored as a 3 on a scale of 1 through 5. (0=no snoring, 5=snoring loud enough to be heard through a closed door or down the monge way) Mr. Bello awoke to use the restroom 2 times during the night. Mr. Bello stated I did not sleep as well as I do when I am in my own bed. The final report will be interpreted and signed by a sleep physician. The completed physician report will then be placed in the patient medical record. Therapy (cm H2O) 0 TIB (min.) 481.5 TST (min.) 227.0 Sleep Onset (min.) 73.0 REM Onset From Sleep (min.) 89.5 Sleep Efficiency % 47 Wakefulness (%) 53 Wakefulness (min.) 255.5 NREM 1 (%) 6 NREM 1 (min.) 12.5 NREM 2 (%) 78 NREM 2 (min.) 176.0 NREM 3 (%) 0 NREM 3 (min.) 0.0 REM (%) 17 REM (min.) 38.5 # Arousals 24 Arousal Index 6 # Snore 781 Snore Index 206.4 AHI 29.1 AHI Supine 35 AHI Non-Supine 27 NREM AHI 20.7 REM AHI 70.1 RDI 29.1 # Obstructive Apnea 16 # Central Apnea 0 # Mixed Apnea 0 # Hypopneas 94 RERAs 0 Total Respiratory Events 113 Time Below SpO2 89% (min.) 22.8 Mean NREM SpO2 (%) 93 Mean REM SpO2 (%) 88 Mean Sleep SpO2 (%) 92 Min NREM SpO2 (%) 77 Min REM SpO2 (%) 75 Position Supine (min.) 213.9 Position Non-supine (min.) 170.0 LM Index Sleep 3.7 LM Index NREM 2.2 LM Index REM 10.9 Mean Heart Rate (bpm) 77 Min Heart Rate (bpm) 53
--- NOTE | 2016-07-31 18:41 | POLYSOMNOGRAPH REPORT ---
REFERRING PERSON: Rosita Nolen MD GLASS PRODUCTS INSPECTOR: Joseph Hussein Mr. Noyola is a 45-year-old male, who was found to have obstructive sleep apnea in 2004. His AHI at that time was 16.6. He wore CPAP for a short period of time, after that was unable to tolerate it. He currently wears oxygen at bedtime. His [place] sleepiness scale score on the evening of the study is 9. BMI is 49.59. Following the technical and digital specifications of the [place] [employer] (AASM) a standard diagnostic polysomnogram was performed monitoring EEG, EOG, EMG (chin and leg deviations), oxygen saturation, body position, digital video, respiratory effort and airflow. The sleep Stage and event scoring was based on the AASM Manual for the Scoring of Sleep and Associated Events 2007 edition. Apneas are defined as a drop in the peak thermal sensor excursion by >90% of baseline for at least 10 seconds. Hypopneas were scored using the 4% oxygen desaturation rule (4A-Medicare) and a decrease in the nasal pressure excursions by >30% of baseline for at least 10 seconds. Respiratory effort-related arousal (RERA's) is defined as a sequence of breaths lasting at least 10 seconds characterized by increasing respiratory effort or flattening of the nasal pressure waveform leading to an arousal from sleep when the sequence of breaths does not meet criteria for an apnea or hypopnea. Apnea Hypopnea index (AHI) is defined as the number of apneas and hypopneas occurring in an hour of sleep. Respiratory disturbance index (RDI) is defined as the number of apneas, hypopneas, and RERA's occurring in an hour of sleep. Mr. Noyola's total sleep period time was 403 minutes. Total sleep time was 227 minutes. Sleep efficiency was 47%. Latency to sleep onset was 73 minutes with wake after sleep onset of 181.5 minutes. Total non-REM sleep time was 188.5 minutes. He spent 6% of that time in N1 sleep, 78% in N2 sleep and no time in N3 sleep. REM latency was 89.5 minutes. Total REM sleep time was 38.5 minutes or 17% of total sleep time. There were 24 cortical arousals from sleep. Nine of these arousals were spontaneous, 14 were due to respiratory events and 1 due to periodic limb movements of sleep. There were 14 periodic limb movements noted on this test. Limb movement index was 3.7. Limb movement with arousal index was 0.5. There were no central, 16 obstructive and no mixed apneas on this test. There were 94 hypopneas. Apnea-hypopnea index was elevated at 29.1. This is consistent with moderately severe sleep apnea. Supine AHI was 35 and REM AHI was 70.1. There were 780 snoring events recorded on this test. Total sleep time with snoring was 7%. Mean saturation was 93% with desaturations to 75%. Saturations were less than 89% for 26.4 minutes of recorded time. There was no cardiac ectopy noted on this study. Heart rates ranged from a low of 53 beats per minute to a high of 104 beats per minute. End-tidal CO2 was recorded on this test. End tidal CO2s were above 55 mmHg for 23% of total sleep period time, between 50 and 55 mmHg for 64.1%, between 45 and 50 mmHg for 8.8% and were less than 45 mmHg for 4.7% of total sleep period time. IMPRESSION AND PLAN: A 45-year-old male, with evidence of moderately severe sleep apnea which is severe in REM sleep as well as nocturnal hypoxemia and evidence of obesity hypoventilation on this test. This patient would likely benefit from positive airway pressure therapy. He should return to the sleep laboratory for a full night titration and then based on those results be started on equipment at home. A download from his machine can be reviewed in one month; both to check compliance as well as AHI and further pressure adjustments can occur at that time. This should improve his hypoventilation, apnea as well as hypoxemia.
== END | disposition home or self-care (01) ==
LOC: C.NEUR 20:00
PROVIDERS: ATTEND Family Medicine
DX: G47.33 Obstructive sleep apnea (adult) (pediatric) (principal)

== ENCOUNTER 2016-09-24 17:09 | Emergency (ER) | payer OTHER ==
[~2016-09-24] VITALS: Ht 175.3 cm; Wt 149.3 kg
[~2016-09-24 17:09] MED LIST changes: -ANTIBIOTIC PO; -FURO-85 PO; -STEROID PO
[2016-09-24 17:12] VITALS: TEMP 36.8; Ht 175.3 cm; Wt 149.3 kg
[2016-09-24] MEDS ORDERED: STEROID PO (17:49)
[2016-09-24] MEDS ORDERED: ANTIBIOTIC PO (17:49)
[2016-09-24] MEDS ORDERED: FURO-85 PO (17:49)
[2016-09-24 17:54] VITALS: BP 129/103; PULSE 91; O2SAT 97
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
== END 2016-09-24 17:54 | disposition home or self-care (01) ==
LOC: C.EDB 17:10 → C.EDD 17:54
DX: S50.02XA Contusion of left elbow, initial encounter (principal); S39.012A Strain of muscle, fascia and tendon of lower back, initial encounter; V43.52XA Car driver injured in collision with other type car in traffic accident, initial encounter; Y92.410 Unspecified street and highway as the place of occurrence of the external cause; R03.0 Elevated blood-pressure reading, without diagnosis of hypertension; J45.909 Unspecified asthma, uncomplicated; Z86.73 Personal history of transient ischemic attack (TIA), and cerebral infarction without residual deficits; K21.9 Gastro-esophageal reflux disease without esophagitis; I10 Essential (primary) hypertension; E66.01 Morbid (severe) obesity due to excess calories; Z87.01 Personal history of pneumonia (recurrent); Z83.3 Family history of diabetes mellitus; Z83.79 Family history of other diseases of the digestive system; Z82.49 Family history of ischemic heart disease and other diseases of the circulatory system; Z79.899 Other long term (current) drug therapy

== ENCOUNTER 2017-02-12 12:15 | Emergency (ER) | payer OTHER ==
[~2017-02-12] VITALS: Ht 175.3 cm; Wt 154.9 kg
[~2017-02-12 12:15] MED LIST changes: +ANTIBIOTIC PO; +FURO-85 PO; -LSX20 PO; +STEROID PO
[2017-02-12 12:20] VITALS: TEMP 36.7; Ht 175.3 cm; Wt 154.9 kg
[2017-02-12] MEDS ORDERED: SPRIN/30 INH (12:45)
[2017-02-12] MEDS ORDERED: ALBUT/IPRATROP 3MG/0.5MG NEB 3 ML VIAL INH STA (13:14)
--- NOTE | 2017-02-12 13:46 | DIAGNOSTIC IMAGING REPORT ---
CHEST ONE VIEW PORTABLE CLINICAL HISTORY: cough, wheezing COMPARISON STUDY: 04/09/2016 FINDINGS: The heart is the upper limits of normal in size. There is mild interstitial prominence which likely is accentuated due to the patient's large body habitus. There is no focal pulmonary consolidation. There are no pleural effusions.[ IMPRESSION: Interstitial prominence, likely related to technical factors. No evidence of focal pulmonary consolidation. Electronically signed by: Tad Gonzalez M.D. 02/12/2017 1:45 PM Dictated Date/Time: 02/12/2017 1:44 PM
[2017-02-12] MEDS ORDERED: METH4PAK PO (14:30)
[2017-02-12] MEDS ORDERED: BENZ1CAP90 PO (14:30)
--- NOTE | 2017-02-12 14:33 | EMERGENCY ROOM VISIT NOTE ---
History First contact with patient: 12:45 Chief Complaint: COUGH Stated Complaint: CHEST DISCOMFORT Nursing Triage Summary: patient states he was finished eating lunch at work when he started to cough really hard. "I sometimes black out when I get to coughing." cough has been "real bad for the past 3 days" History of Present Illness The patient is a 46 year old male who presents to the Emergency Room with complaints of coughing and wheezing 3 days. The patient states he was in the break room at work at [employer], when he began coughing really hard. He states he was needed, but didn't black out. He did not lose consciousness, he states only the room went black. The patient states this occurred approximately an hour and half prior to arrival. He said there were a bunch of people in the room with him. His coworkers called 911, and the patient arrives here via EMS. He denies any fall, loss of consciousness, or head injury. He is now complaining of chest tightness and wheezing. The symptoms have been ongoing for the past few days. He has been taking his Singulair, albuterol, Symbicort, and resides prescribed, did perform a breathing treatment last night, which was old. The patient does have a history of asthma, and possibly COPD. He denies any upper respiratory infection symptoms including fever, chills, nausea, otalgia, sinus pain or drainage. He states he did have one episode of vomiting last evening, but he states he is now experiencing some discomfort in his chest like it is on fire, but only when coughing. The patient states he has had some mild dyspnea, again that this is consistent with his normal asthma and breathing difficulties. The patient denies any chest pressure or increased discomfort with ambulation or other activity. He denies any headache, confusion , dizziness, or other concerning symptoms. Review of Systems A complete 10 point review of systems was reviewed with the patient with pertinent positives and negatives as per history of present illness. All else were negative. Past Medical/Surgical History Medical Problems: (1) ASTHMA, UNSPECIFIED (2) Body Mass Index 40.0-44.9, Adult (3) CVA (cerebral vascular accident) (4) Esophageal Reflux (5) Hypertension Nos (6) Morbid Obesity (7) Personal History, Pneumonia (Recurrent) (8) Personal Hx Of Tia,& Cerebral Infarction W/Out Res Deficits (9) s/p multiple knee surgeries Family History Diabetes mellitus Gallbladder disease Hypertension Social History Smoking Status: Never Smoker Alcohol Use: none Drug Use: none Marital Status: single Housing Status: lives with family Occupation Status: employed Current/Historical Medications Scheduled Benzonatate (Tessalon Perles), 200 MG PO TID Budesonide/Formoterol Fumarate (Symbicort 160/4.5 Inhaler ), 2 PUFFS INH BID Methylprednisolone (Medrol Dosepak), 0 PO DAILY Montelukast Sod (Montelukast Sodium), 10 MG PO HS Tiotropium [place] (Spiriva Handihaler), 1 CAP INH DAILY Scheduled PRN Albuterol Hfa (Ventolin Hfa), 2 PUFFS INH QID PRN for Rescue/Asthma Symptoms Albuterol Sulf (Proventil 0.083% 2.5MG/3ML), 2.5 MG INH Q4HR PRN for SOB/ Wheezing Cyclobenzaprine Hcl (Flexeril), 10 MG PO TID PRN for Muscle Spasms Allergies Aspirin, morphine Physical Exam Vital Signs Date Time Temp Pulse Resp B/P (MAP) Pulse Ox O2 Delivery O2 Flow Rate FiO2 02/12/17 14:39 92 20 107/77 96 Room Air 02/12/17 13:25 96 16 125/82 98 Room Air 02/12/17 12:21 94 02/12/17 12:20 98 Room Air 02/12/17 12:20 36.7 92 18 148/91 98 Room Air Physical Exam VITALS: Vitals are noted on the nurse's note and reviewed by myself. Vital signs stable. GENERAL: This is a 46-year-old obese white male, in no acute distress, nondiaphoretic, well-developed well-nourished. SKIN: The skin was without rashes, erythema, edema, or bruising. There is no tenting of the skin. Capillary reflex less than 2 seconds. HEAD: Normocephalic atraumatic. EARS: External auditory canals clear, tympanic membranes pearly castle without erythema or effusion bilaterally. EYES: Pupils equal round and reactive to light and accommodation. Conjunctivae without injection, sclerae without icterus. Extraocular movements intact. NOSE: Patent, turbinates without inflammation or discharge. No sinus tenderness. MOUTH: Mucous membranes moist. Tonsils are not enlarged. Pharynx without erythema or exudate. Uvula midline. Airway patent. Tongue does not deviate. NECK: Supple without nuchal rigidity. No lymphadenopathy. No thyromegaly. Cervical spine is nontender. No JVD. HEART: Regular rate and rhythm without murmurs gallops or rubs. LUNGS: Wheezes noted throughout all lung garces. This did improve after nebulizer treatment. No rales or rhonchi. No dullness to percussion. No retractions or accessory muscle use. ABDOMEN: Positive bowel sounds x 4. Normal tympanic percussion. Soft, nontender, without masses or organomegaly. Ramirez sign negative. No guarding or rebound tenderness. MUSCULOSKELETAL: No muscle atrophy, erythema, or edema noted. Full range of motion without joint tenderness in all extremities. No tenderness to palpation. Normal gait. Strength 5/5 throughout. NEURO: Patient was alert and oriented to person place and time. Normal sensation to light and sharp touch. Deep tendon reflexes 2+ throughout. No focal neurological deficits. Medical Decision & Procedures ER Provider Diagnostic Interpretation: CHEST ONE VIEW PORTABLE CLINICAL HISTORY: cough, wheezing COMPARISON STUDY: 04/09/2016 FINDINGS: The heart is the upper limits of normal in size. There is mild interstitial prominence which likely is accentuated due to the patient's large body habitus. There is no focal pulmonary consolidation. There are no pleural effusions.[ IMPRESSION: Interstitial prominence, likely related to technical factors. No evidence of focal pulmonary consolidation. Electronically signed by: Tad Gonzalez M.D. 02/12/2017 1:45 PM Dictated Date/Time: 02/12/2017 1:44 PM Medications Administered Medications (Trade) Dose Ordered Sig/Chapin Route Start Time Stop Time Status Last Admin Dose Admin Albuterol/ Ipratropium (Duoneb) 3 ml NOW STAT INH 02/12/17 13:14 02/12/17 13:16 DC 02/12/17 13:20 3 ML Medical Decision The patient was seen and evaluated as above. He does have a history of asthma, and possibly COPD. For the past 3 days, he has been experiencing increased wheezing and chest discomfort associated with an increased cough. The patient states his symptoms are consistent with bronchitis, which she has had in the past. The patient was at work today, when he began a "coughing fit" and states he blacked out. The patient states this often happens when he begins coughing like this. The patient states his coworkers to call 911, and he was advised to come here to the emergency Department for evaluation due to his coughing and "black out". The patient did not lose consciousness, and states he remembers the entire episode. He did not fall, nor did he sustain any trauma including head injury. There was no loss of consciousness. The patient states the coughing is associated with some increased wheezing. He does not have other flulike symptoms including sore throat, sinus congestion, fever, or nausea. The patient did experience improvement with his nebulizer treatment last night. There are no significant symptoms concerning for acute coronary syndrome. He was given a DuoNeb treatment here in the emergency department, and his wheezing did improve and he states he was feeling much better after this treatment. I discussed proper use of albuterol and breathing treatment with the patient. He states he has difficult using inhalers and his nebulizers while he is at work, but he does use them frequently at home. I encouraged him to use the nebulizer consistently for the next 2 days to help with his wheezing. He will also be started on some steroids, as well his wheezing improved but did not improve 100% . The patient is in agreement with the assessment and plan. He was encouraged to return to the emergency department for any concerning cardiac symptoms. Discharge instructions reviewed, the patient was discharged home in good condition. Differential diagnosis includes acute bronchitis, asthma exacerbation, pneumonia , COPD, acute coronary syndrome, malignancy, and others. Medication Reconcilliation Current Medication List: was personally reviewed by me Blood Pressure Screening Patient's blood pressure: Elevated blood pressure Blood pressure disposition: Elevated BP felt to be situational Impression Primary Impression: Acute bronchitis Departure Information Dispostion Home / Self-Care Condition GOOD Prescriptions Benzonatate (Tessalon Perles) 200 Mg Cap 200 MG PO TID for 10 Days, #30 CAP Prov: Tootie Han PA-C 02/12/17 Methylprednisolone (MEDROL DOSEPAK) 4 Mg Bautista 0 PO DAILY, #1 PKT Prov: Tootie Han PA-C 02/12/17 Referrals Jeison Gandhi III, M.D. (PCP) Patient Instructions ED Bronchitis Asthmatic, [facility] Additional Instructions You were seen and evaluated in the emergency department today for acute bronchitis. As discussed, this is viral in nature and will not respond to antibiotics. You have been prescribed a Medrol Dosepak. This is a steroid which will help decrease your inflammation, redness, and itch. Take the medicine as prescribed. Take the ENTIRE 6 day course of the steroids. Use your inhalers/nebulizers you have at home as directed for wheezing/ difficulty breathing. You should be using one or the other every 4-6 hours consistently to help open up your lungs. You have been given benzonatate (Tessalon Pearles) to be used for coughing. These should be taken 1 capsule up to 3 times per day as needed for coughing. Do not take this medication more than prescribed. You may use this medication in addition to OTC cough medications. Drink warm tea with honey and lemon, as this will also help to soothe the throat. Gargle with salt water frequently. As discussed, you should take OTC Mucinex and/or Sudafed for your symptoms. Please do not exceed the recommended daily dosages. Ibuprofen(Motrin, Advil) may be used for fever or pain. Use 600mg every six hours as needed. Take with food. Avoid using more than 2400mg in a 24 hour period. Do not use 2400mg per day for more than three consecutive days without physician direction. Prolonged inappropriate use can lead to stomach upset or ulcers. You may take Naproxen 1-2 tablets twice daily in place of ibuprofen. This medication will help with the swelling in your sinuses. (AND/OR) Acetaminophen(Tylenol) may be used for fever or pain. Use 1000mg every six hours as needed. Avoid using more than 3000mg in a 24 hour period. For congestion, you may use Flonase OTC. You may want to consider zinc, echinacea, and vitamin C to help boost your immunity. Please get plenty of rest and drink plenty of fluids. Please return or follow-up with your PCP in 1 week if you are not experiencing any improvement in your symptoms. Return to the emergency department for coughing up blood, difficulty breathing, chest pain, worsening symptoms, or for other concerns. Problem Qualifiers Primary Impression: Acute bronchitis Bronchitis organism: unspecified organism Qualified Codes: J20.9 - Acute bronchitis, unspecified
[2017-02-12 14:39] VITALS: BP 107/77; PULSE 92; O2SAT 96
== END 2017-02-12 14:51 | disposition home or self-care (01) ==
LOC: EDBD 12:15 → C.EDB 12:17
DX: J20.9 Acute bronchitis, unspecified (principal); J45.909 Unspecified asthma, uncomplicated; I10 Essential (primary) hypertension; E66.01 Morbid (severe) obesity due to excess calories; K21.9 Gastro-esophageal reflux disease without esophagitis; Z86.73 Personal history of transient ischemic attack (TIA), and cerebral infarction without residual deficits; Z87.01 Personal history of pneumonia (recurrent); Z83.3 Family history of diabetes mellitus; Z82.49 Family history of ischemic heart disease and other diseases of the circulatory system

== ENCOUNTER 2024-04-25 02:10 | Inpatient (IN) ==
[2024-04-25] MEDS: ONDANSETRON INJ 2 MG/ML 2 ML VIAL IV STA (02:26)
[2024-04-25] MEDS: SODIUM CHLORIDE 0.9% 1,000 ML IV ONE (02:26)
[2024-04-25] MEDS: dilTIAZem HCl 5 MG/ML 5 ML VIAL IV STA (02:38)
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
[2024-04-25 02:50] LABS: Basophils # (auto) 0.07 K/uL (0.00-0.20); Basophils % (auto) 0.5 %; Eosinophils # (auto) 0.37 K/uL (0.00-0.50); Eosinophils % (auto) 2.6 %; Hematocrit (blood only) 43.3 % (42.0-52.0); Hemoglobin 13.8 g/dl (14.0-18.0); Immature Granulocytes # (auto) 0.22 K/uL (0.01-0.20); Immature Granulocytes % (auto) 1.6 %; Lymphocytes # (auto) 3.24 K/uL (1.20-3.40); Lymphocytes % (auto) 22.9 %; Mean Corpuscular Hemoglobin 28.8 pg (25.0-34.0); Mean Corpuscular Hgb Conc 31.9 g/dL (32.0-36.0); Mean Corpuscular Volume 90.2 fL (80.0-100.0); Mean Platelet Volume 10.1 fL (9.4-12.4); Monocytes # (auto) 1.22 K/uL (0.11-0.59); Monocytes % (auto) 8.6 %; Neutrophils # (auto) 9.05 K/uL (1.40-6.50); Neutrophils % (auto) 63.8 %; Platelet Count 266 K/uL (130-400); RDW Coefficient of Variation 13.2 % (11.5-14.5); RDW Standard Deviation 43.6 fL (36.4-46.3); White Blood Count 14.17 K/ul (4.8-10.8)
[2024-04-25] MEDS: dilTIAZem HCL 125 MG in DEXTROSE 5% 100 ML IV SCH (02:57)
[2024-04-25 03:03] LABS: BUN Creatinine Ratio 22.8 (10-20); Calcium 9.5 mg/dl (8.6-10.3); Creatinine Clr Calc Pharmacy 133.7 ml/min; Potassium 4.1 mmol/L (3.5-5.1)
[2024-04-25 03:09] LABS: Troponin I High Sensitivity 4.8 pg/ml (0-20)
[2024-04-25 03:12] LABS: INR 0.9 (0.9-1.1); Prothrombin Time 10.2 Seconds (9.0-12.0)
[2024-04-25 03:19] LABS: Thyroid Stimulating Hormone 2.466 uIu/ml (0.300-4.500)
[2024-04-25 03:21] LABS: Albumin Globulin Ratio 1.2 (0.9-2); Albumin Level 4.1 gm/dl (3.4-5.0); Bilirubin,Total 0.8 mg/dl (0.2-1.0); Globulin 3.4 gm/dl (2.5-4.0); Total Protein 7.5 gm/dl (6.0-8.3)
[2024-04-25 03:25] LABS: Appearance Urine Clear (Clear); Bilirubin Urine Negative (Negative); Blood Urine Negative (Negative); Color Urine Yellow; Glucose Urine UA Trace (Negative); Ketones Urine Negative (Negative); Leukocyte Esterase Urine Negative (Negative); Nitrite Urine Negative (Negative); Protein Urine Negative (Negative); Specific Gravity Urine 1.009 (1.000-1.030); Urobilinogen Urine Negative (Negative)
[2024-04-25 03:31] LABS: Adenovirus PCR Not Detected (NotDetected); Bordetella parapertussis PCR Not Detected (NotDetected); Bordetella pertussis PCR Not Detected (NotDetected); Chlamydia pneumoniae PCR Not Detected (NotDetected); Coronavirus 229E PCR Not Detected (NotDetected); Coronavirus CoV-2 (COVID19)PCR Not Detected (NotDetected); Coronavirus HKU1 PCR Not Detected (NotDetected); Coronavirus NL63 PCR Not Detected (NotDetected); Coronavirus OC43PCR Not Detected (NotDetected); Human Metapneumovirus PCR Not Detected (NotDetected); Influenza A PCR Not Detected (NotDetected); Influenza B PCR Not Detected (NotDetected); Mycoplasma pneumoniae PCR Not Detected (NotDetected); Parainfluenza Virus 1 PCR Not Detected (NotDetected); Parainfluenza Virus 2 PCR Not Detected (NotDetected); Parainfluenza Virus 3 PCR Not Detected (NotDetected); Parainfluenza Virus 4 PCR Not Detected (NotDetected); Respiratory Syncytial VirusPCR Not Detected (NotDetected); Rhinovirus/Enterovirus PCR Not Detected (NotDetected)
[2024-04-25] MEDS: STAT IV Infusion **Titration per Protocol STA (03:39)
[2024-04-25] MEDS: OPTIRAY 320 100ml IV ONE (04:16)
--- NOTE | 2024-04-25 05:23 | CT Scan Report ---
EXAM: CT abd pelvis IV con only CLINICAL HISTORY: epigastric and RUQ pain; vomiting TECHNIQUE: Multiple contiguous axial images were obtained from the level of diaphragm to the pubis symphysis. This study was acquired after the IV administration of iodinated contrast material, given the patient's indications for the examination. If IV contrast material had not been administered, the likelihood of detecting abnormalities relevant to the patient's condition would have been substantially decreased. Coronal and sagittal reformatted images were generated and reviewed to improve anatomic localization and optimize lesion detection. CT scan was performed according to ALARA (as low as reasonably achievable). COMPARISON: CT, 09/05/2017 00:21:12 MUCK OPERATOR FINDINGS: The visualized lung bases are clear. ABDOMEN/PELVIS: The liver is normal in size and mild hypoattenuation. No focal liver lesions are seen. There is no intra or extrahepatic biliary ductal dilatation. Hepatic vasculature is patent. The gallbladder is unremarkable. The spleen and adrenal glands are unremarkable. Diffuse peripancreatic fat stranding is seen with associated thickening of left anterior renal fascia. Minimal fluid in lesser sac. No pseudocyst noted in present study. The kidneys are normal in size and attenuation. There is no hydronephrosis or perinephric fat stranding. No renal calculi or renal masses are identified. The ureters are normal in caliber and no ureteral calculi are seen. The bladder is normal in contour. No evidence of focal or diffuse bowel wall thickening or evidence of bowel obstruction is seen. The appendix is visualized in the right lower quadrant and appears within normal limits. No adenopathy or fluid collections are seen. The aorta is normal in caliber. No aggressive appearing osseous lesions are identified. IMPRESSION: 1. Features of Acute interstitial pancreatitis. Suggested serum amylase/lipase correlation. New finding. 2. Stable mild hepatic steatosis. Electronically signed by Janes Porter 04-25-2024 05:23 AM
[2024-04-25] MEDS: KETOROLAC TROMETHAMINE 15 MG/ML VIAL IV STA (06:13)
[2024-04-25 06:37] LABS: Partial Thromboplastin Ratio 1.1; Partial Thromboplastin Time 29 Seconds (21-31)
[2024-04-25 06:38] LABS: Magnesium 1.6 mg/dl (1.7-2.4)
[2024-04-25] MEDS: METOPROLOL TARTRATE 1 MG/ML VIAL IV STA (06:42)
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
[2024-04-25] MEDS ORDERED: LORazepam 0.5 MG TAB PO PRN (06:51)
[2024-04-25] MEDS ORDERED: oxyCODONE HCL IR 5 MG TAB (IMMEDIATE RELEASE) PO PRN (06:53)
--- NOTE | 2024-04-25 06:53 | XRay Report ---
EXAM: XR chest 1V portable CLINICAL HISTORY: tachy, poss sepsis TECHNIQUE: An X-ray image of the chest is obtained in 1 AP projection. COMPARISON: 09/17/2023. FINDINGS: Pulmonary Parenchyma: Bilateral prominent central bronchial markings. No evidence of consolidation, collapse, or focal opacities. No pulmonary nodules are identified. No evidence of pleural effusion or pleural thickening. Heart and Mediastinum: Heart size and shape are normal. No mediastinal widening or masses. No hilar or mediastinal lymphadenopathy. Bony Thorax: Bony thorax appears intact without fractures or deformities. Soft Tissues: Soft tissues overlying the chest wall are unremarkable. IMPRESSION: 1. Bilateral prominent central bronchial markings, likely non specific/ bronchitis, clinical correlation recommended. 2. No acute cardiopulmonary abnormalities are identified. 3. No interval changes. Electronically signed by Lynette Loredo 04-25-2024 06:53 AM
[2024-04-25] MEDS: DOXYCYCLINE HYCLATE 100 MG in DEXTROSE 5% MINI-B 100 ML IV STA (07:51)
[2024-04-25] MEDS ORDERED: CARBOHYDRATES FOR HYPOGLYCEMIA PO PRN (08:43)
[2024-04-25] MEDS ORDERED: GLUCOSE 10 TAB/TUBE PO PRN (08:43)
[2024-04-25] MEDS ORDERED: GLUCAGON FOR INJ 1 MG VIAL SQ PRN (08:43)
[2024-04-25] MEDS ORDERED: DEXTROSE 50% 50 ML SYRINGE IV PRN (08:43)
[2024-04-25] MEDS ORDERED: GLUCOSE 40% GEL 15 GM TUBE PO PRN (08:43)
--- NOTE | 2024-04-25 09:12 | Gastrointestinal Consultation ---
Date of Consultation April 25, 2024 Assessment & Plan (1) Acute pancreatitis: 53 year old male w/ history of COPD, CVA, asthma and others below presenting to the ED w/ongoing upper abdominal pain, nausea/vomiting - admitted w/ acute pancreatitis, afib w/ RVR. Etiology of pancreatitis unclear, no report of ETOH/tobacco use, no stones appreciated on imaging. He does report a few coworkers with illness this week. He was also started on four new medications recently 1. Acute pancreatitis - No stones appreciated on imaging, LFTs normal. - No ETOH or tobacco reported - New medications Lisinopril - Class 2 (moderate evidence of causation) Atorvastatin - Class 4 (very low-quality evidence) - ABD US to screen for gallstones - Symptomatic treatment - May trial clear liquid diet - Antiemetics PRN - Analgesia PRN - Please arrange OP EGD/EUS after resolution of pancreatitis in about 4-6 weeks time - He should also have an OP colonoscopy for colon CA screening 2. Afib w/ RVR - management per primary team I spent a total of 60 minutes on the date of service in review of patient's record, and previously obtained information in person and appropriate medical visit, discussion and education of plan, with patient and/or caregiver, placing orders for tests/referral/procedures as medically necessary and documentation of pertinent clinical information in patient's medical records for their visit today.Thank you for allowing us to participate in the care of this patient. Please call with any acute changes, questions or concerns. Please see addendum below with additional recommendation from my supervising physician. Supervising Physician Co-Signing Physician Notes I saw and examined this patient with our nurse practitioner and agree with her assessment and plan. Presents with initial episode of acute pancreatitis. Etiology unclear at this point. Hemodynamically stable and low risk for any significant complications based on imaging. Need to consider gallstone pancreatitis despite normal LFTs. He does have a strong family history of gallstones. Recommend abdominal ultrasound initially. Hypercalcemia hyperlipidemia have been ruled out. Drug-induced is unlikely. Autoimmune pancreatitis needs to be considered if no other etiology is identified. Continue IV hydration treatment pain and monitor lab work. Will follow. Await ultrasound results. History of Present Illness Reason for Consultation: acute pancreatitis Requesting Physician: Tex Mcbride MD Attending Physician: Tex Mcbride MD History of Present Illness 53 year old male w/ history of COPD, CVA, afib w/ RVR, asthma and others below presenting to the ED w/ongoing upper abdominal pain, nausea/vomiting - imaging and labs consistent with acute pancreatitis. GI was asked to evaluated. Pt was seen in the ED, chart reviewed. Suggests abd pain started a few days ago. Mid abd w/ some radiation to his RUQ pain. There has been nausea/vomiting but no reports of coffee ground emesis or hematemesis. Denies any change in bowel habits. No black or bloody stools. Weight stable. No fever, chills, CP, SOB. No ETOH in a few years. No tobacco products. Recently stated on Glipizide, Lisinopril, Atorvastatin, Metformin. Tbili 0.8 AST 19 ALT 25 ALKP 95 Lipase 2,223 CTAP 2024: Features of Acute interstitial pancreatitis. Suggested serum amylase/lipase correlation. New finding. Stable mild hepatic steatosis. Allergies Allergy/AdvReac Type Severity Reaction Status Date / Time aspirin AdvReac Intermediate Gastrointestinal Verified 04/25/24 08:12 Upset morphine AdvReac Intermediate "FLIP OUT" Verified 04/25/24 08:12 Home Medications Medication Instructions Recorded Confirmed Type albuterol sulfate 0.63 mg/3 mL 0.63 mg inhalation QID PRN 06/09/18 04/25/24 History solution for nebulization Shortness Of Breath Or Wheezing metformin 500 mg tablet 1,000 mg PO BIDM 10/18/20 04/25/24 History mometasone-formoterol HFA 200 2 inh inhalation BID 10/18/20 04/25/24 History mcg-5 mcg/actuation aerosol inhaler (Dulera) montelukast 10 mg tablet 10 mg PO HS 10/18/20 04/25/24 History albuterol sulfate 90 mcg/actuation 2 inh inhalation Q4H PRN shortness 03/28/22 04/25/24 Rx aerosol inhaler of breath or wheezing #8.5 grams atorvastatin 10 mg tablet 10 mg PO DAILY 04/25/24 04/25/24 History glipizide 5 mg tablet, extended 5 mg PO DAILY 04/25/24 04/25/24 History release 24 hr lisinopril 10 mg tablet 10 mg PO DAILY 04/25/24 04/25/24 History Patient History Family History Other Family history non-contributory Social History Smoking Status: Never smoker Second Hand Exposure: No; Do You Dip or Chew Tobacco: No; Tobacco Cessation Education Requested by Patient: No Hx Alcohol Use: No Hx Substance Use: No Preferred Language: [place] Communication Ability: Effective [employer] Required: No Beliefs That Will Affect Care: None Current Living Situation: Parent and Family Other Information That Helps Us Care for You: No Feels Safe at Home: Yes Safety Concerns: Feels Safe At This Time Assistive Devices: Glasses Review of Systems Review of Systems: All other findings negative except as noted in HPI. Physical Exam Constitutional: WD/WN, vitals as above Respiratory: normal respiratory effort, lungs clear to auscultation Cardiovascular: Rate/Rhythm: regular rate and regular rhythm Gastrointestinal (Abdomen): Percussion/Palpation: + abdomen tender and abdomen soft Skin: no rashes, warm and dry Results & Data Vital Signs (Past 12 Hours) Vital Signs Temp Pulse Resp BP Pulse Ox O2 Del Method 04/25/24 08:30 86 17 119/71 93 04/25/24 08:00 86 18 125/76 92 04/25/24 07:39 92 H 121/87 04/25/24 07:30 91 H 21 103/72 92 04/25/24 07:00 92 H 23 121/87 93 Room Air 04/25/24 06:42 100 H 14 116/84 94 04/25/24 06:42 93 H 122/96 04/25/24 06:30 93 H 18 122/96 95 04/25/24 06:24 103 H 04/25/24 05:41 116 H 18 114/92 94 04/25/24 05:22 127 H 22 117/87 95 04/25/24 04:42 136 H 18 145/87 H 94 04/25/24 04:00 138 H 20 120/91 95 04/25/24 03:50 143 H 20 147/95 H 94 04/25/24 03:33 146 H 20 137/103 H 93 04/25/24 03:15 133 H 20 135/114 H 94 04/25/24 03:01 140 H 24 135/113 H 95 04/25/24 02:45 142 H 22 121/94 95 04/25/24 02:44 162 H 04/25/24 02:43 161 H 18 121/94 95 04/25/24 02:13 98.4 F 160 H 18 136/98 95 Room Air Laboratory Results 04/25/24 04/25/24 04/25/24 Range/Units 07:41 06:01 03:18 WBC (4.8-10.8) K/ul RBC (4.70-6.10) M/uL Hgb (14.0-18.0) g/dl Hct (42.0-52.0) % MCV (80.0-100.0) fL MCH (25.0-34.0) pg MCHC (32.0-36.0) g/dL RDW Std Deviation (36.4-46.3) fL RDW Coeff of Iraj (11.5-14.5) % Plt Count (130-400) K/uL MPV (9.4-12.4) fL Immature Gran % (Auto) % Neut % (Auto) % Lymph % (Auto) % [place] % (Auto) % Eos % (Auto) % Baso % (Auto) % Neut # (Auto) (1.40-6.50) K/uL Lymph # (Auto) (1.20-3.40) K/uL [place] # (Auto) (0.11-0.59) K/uL Eos # (Auto) (0.00-0.50) K/uL Baso # (Auto) (0.00-0.20) K/uL Immature Gran # (Auto) (0.01-0.20) K/uL PT (9.0-12.0) Seconds INR (0.9-1.1) APTT (21-31) Seconds PTT Ratio Sodium (136-145) mmol/L Potassium (3.5-5.1) mmol/L Chloride (98-107) mmol/L Carbon Dioxide (21-32) mmol/L Anion Gap (3-11) BUN (6-23) mg/dl Creatinine (0.6-1.4) mg/dl Est Cr Clr Drug Dosing ml/min eGFR BUN/Creatinine Ratio (10-20) Glucose (70-99(Fasting)) mg/dl Lactate 1.1 (0.4-2.0) mmol/L Calcium (8.6-10.3) mg/dl Magnesium (1.7-2.4) mg/dl Total Bilirubin (0.2-1.0) mg/dl AST (13-39) U/L ALT (7-52) U/L Alkaline Phosphatase (34-104) U/L Troponin I High Sens (0-20) pg/ml B-Natriuretic Peptide (0-100) pg/ml Total Protein (6.0-8.3) gm/dl Albumin (3.4-5.0) gm/dl Globulin (2.5-4.0) gm/dl Albumin/Globulin Ratio (0.9-2) Triglycerides (0-150) mg/dl Lipase (11-82) U/L Procalcitonin 0.08 (0-0.5) ng/ml TSH (0.300-4.500) uIu/ml Urine Color Yellow Urine Appearance Clear (Clear) Urine pH 6.0 (4.5-7.5) Ur Specific [place] 1.009 (1.000-1.030) Urine Protein Negative (Negative) Urine Glucose (UA) Trace H (Negative) Urine Ketones Negative (Negative) Urine Blood Negative (Negative) Urine Nitrite Negative (Negative) Urine Bilirubin Negative (Negative) Urine Urobilinogen Negative (Negative) Ur Leukocyte Esterase Negative (Negative) Adenovirus (PCR) (NotDetected) B. pertussis DNA (PCR) (NotDetected) B.parapertussis DNA PCR (NotDetected) C. pneumoniae DNA (PCR) (NotDetected) Coronavirus OC43 (PCR) (NotDetected) Coronavirus HKU1 (PCR) (NotDetected) Coronavirus 229E (PCR) (NotDetected) SARS-CoV-2 (PCR) (NotDetected) Coronavirus NL63 (PCR) (NotDetected) Human Metapneumovir PCR (NotDetected) Influenza Type A (PCR) (NotDetected) Influenza Type B (PCR) (NotDetected) M. pneumoniae (PCR) (NotDetected) Parainfluenza 1 (PCR) (NotDetected) Parainfluenza 2 (PCR) (NotDetected) Parainfluenza 3 (PCR) (NotDetected) Parainfluenza 4 (PCR) (NotDetected) RSV (PCR) (NotDetected) Entero/Rhino (PCR) (NotDetected) 04/25/24 04/25/24 Range/Units 02:34 02:29 WBC 14.17 H (4.8-10.8) K/ul RBC 4.80 (4.70-6.10) M/uL Hgb 13.8 L (14.0-18.0) g/dl Hct 43.3 (42.0-52.0) % MCV 90.2 (80.0-100.0) fL MCH 28.8 (25.0-34.0) pg MCHC 31.9 L (32.0-36.0) g/dL RDW Std Deviation 43.6 (36.4-46.3) fL RDW Coeff of Iraj 13.2 (11.5-14.5) % Plt Count 266 (130-400) K/uL MPV 10.1 (9.4-12.4) fL Immature Gran % (Auto) 1.6 % Neut % (Auto) 63.8 % Lymph % (Auto) 22.9 % [place] % (Auto) 8.6 % Eos % (Auto) 2.6 % Baso % (Auto) 0.5 % Neut # (Auto) 9.05 H (1.40-6.50) K/uL Lymph # (Auto) 3.24 (1.20-3.40) K/uL [place] # (Auto) 1.22 H (0.11-0.59) K/uL Eos # (Auto) 0.37 (0.00-0.50) K/uL Baso # (Auto) 0.07 (0.00-0.20) K/uL Immature Gran # (Auto) 0.22 H (0.01-0.20) K/uL PT 10.2 (9.0-12.0) Seconds INR 0.9 (0.9-1.1) APTT 29 (21-31) Seconds PTT Ratio 1.1 Sodium 135 L (136-145) mmol/L Potassium 4.1 (3.5-5.1) mmol/L Chloride 101 (98-107) mmol/L Carbon Dioxide 27 (21-32) mmol/L Anion Gap 7 (3-11) BUN 18 (6-23) mg/dl Creatinine 0.79 (0.6-1.4) mg/dl Est Cr Clr Drug Dosing 133.7 ml/min eGFR 105.57 BUN/Creatinine Ratio 22.8 H (10-20) Glucose 192 H (70-99(Fasting)) mg/dl Lactate 1.1 (0.4-2.0) mmol/L Calcium 9.5 (8.6-10.3) mg/dl Magnesium 1.6 L (1.7-2.4) mg/dl Total Bilirubin 0.8 (0.2-1.0) mg/dl AST 19 (13-39) U/L ALT 25 (7-52) U/L Alkaline Phosphatase 95 (34-104) U/L Troponin I High Sens 4.8 (0-20) pg/ml B-Natriuretic Peptide 30 (0-100) pg/ml Total Protein 7.5 (6.0-8.3) gm/dl Albumin 4.1 (3.4-5.0) gm/dl Globulin 3.4 (2.5-4.0) gm/dl Albumin/Globulin Ratio 1.2 (0.9-2) Triglycerides 74 (0-150) mg/dl Lipase 2223 H (11-82) U/L Procalcitonin (0-0.5) ng/ml TSH 2.466 (0.300-4.500) uIu/ml Urine Color Urine Appearance (Clear) Urine pH (4.5-7.5) Ur Specific [place] (1.000-1.030) Urine Protein (Negative) Urine Glucose (UA) (Negative) Urine Ketones (Negative) Urine Blood (Negative) Urine Nitrite (Negative) Urine Bilirubin (Negative) Urine Urobilinogen (Negative) Ur Leukocyte Esterase (Negative) Adenovirus (PCR) Not Detected (NotDetected) B. pertussis DNA (PCR) Not Detected (NotDetected) B.parapertussis DNA PCR Not Detected (NotDetected) C. pneumoniae DNA (PCR) Not Detected (NotDetected) Coronavirus OC43 (PCR) Not Detected (NotDetected) Coronavirus HKU1 (PCR) Not Detected (NotDetected) Coronavirus 229E (PCR) Not Detected (NotDetected) SARS-CoV-2 (PCR) Not Detected (NotDetected) Coronavirus NL63 (PCR) Not Detected (NotDetected) Human Metapneumovir PCR Not Detected (NotDetected) Influenza Type A (PCR) Not Detected (NotDetected) Influenza Type B (PCR) Not Detected (NotDetected) M. pneumoniae (PCR) Not Detected (NotDetected) Parainfluenza 1 (PCR) Not Detected (NotDetected) Parainfluenza 2 (PCR) Not Detected (NotDetected) Parainfluenza 3 (PCR) Not Detected (NotDetected) Parainfluenza 4 (PCR) Not Detected (NotDetected) RSV (PCR) Not Detected (NotDetected) Entero/Rhino (PCR) Not Detected (NotDetected) PG Care Time/CCT Total # of Minutes Spent Total Time Spent with Patient: Total time spent is greater than 50% in coordination of care (as documented) at patient's floor/unit and/or counseling patient: Coding Level of Care Code 53380 IN/OBS CONSULT LVL 4,60M Diagnoses Acute pancreatitis K85.90
[2024-04-25] MEDS: LACTATED RINGER'S 1,000 ML IV STA (09:22)
[2024-04-25] MEDS: ATORVASTATIN 10 MG TAB PO SCH (09:26)
[2024-04-25] MEDS: lisinopril 10 MG TAB PO SCH (09:26)
[2024-04-25] MEDS: ENOXAPARIN INJ 40 MG/0.4 ML SYR SQ SCH (09:27)
[2024-04-25] MEDS: LANTUS PER UNIT CHARGE SQ SCH (09:34)
[2024-04-25] MEDS: INSULIN ASPART PER UNIT CHARGE SC SCH (09:35)
--- NOTE | 2024-04-25 09:36 | Electrocardiogram Report ---
Test Reason : Blood Pressure : */* mmHG Vent. Rate : 94 BPM Atrial Rate : 94 BPM P-R Int : 166 ms QRS Dur : 84 ms QT Int : 346 ms P-R-T Axes : 14 -12 17 degrees QTcB Int : 432 ms Normal sinus rhythm Normal ECG When compared with ECG of 25-Apr-2024 02:46, Sinus rhythm has replaced Atrial fibrillation Confirmed by Garcia Parker [id number] on 04/25/2024 9:36:16 AM Referred By: REFERRED SELF Confirmed By: Garcia Parker
--- OUTSIDE RECORDS SUMMARY | 2024-04-25 10:38 | External Medical Summary | Summary of Care ---
Author Name Unknown Organization [facility] Address [address] [place] [address] Phone [phone] Care Team Providers Care Child And Family Therapist Name Role Phone Hiram ROCHE MD, Jeison Hernandez Primary Care Provider [phone] Reason for Visit * Reason Comments Dosage Adjustment In Person (Anticoag Cl inic) Diabetes Management Encounter Details Date Type Department Care Team (Late st Contact Info) Description 04/19/2024 8:10 AM EST Office Visit Pharmacy, [facility] [address] [place] [address] Pharmacist1, [facility] [address] [facility] [place] [address] Type 2 diabetes mellitus with hemoglobin A1c goal of less than 7.0% ([facility])* Allergies Active Allergy Reactions Criticality Noted Date Comments Aspirin 12/01/1999 upset stomach Morphine 04/27/2015 Makes him want to rip things apart. documented as of this encounter (statuses as of 04/19/2024) Medications OneTouch Delica Lancets 33G Twice daily 100 Each 3 0 Active OneTouch Verio w/Device Kit Use up to 4 times a day E11.9 1 Kit 0 Active Ipratropium-Albut robert 0.5-2.5 (3) MG/3ML Inhalation Solution (Duoneb)Indicatio ns:Exacerbation of persistent asthma, unspecified asthma severity USE 1 AMPULE IN NEBULIZER EVERY 4 HOURS NEEDED FOR SHORTNESS OF BREATH OR WHEEZING 90 mL 1 3 Active OneTouch Verio In Vitro Strip (Glucose Blood)Indications :Type 2 diabetes mellitus without complication, without long-term current use of insulin (HCC) Use up to 4 times a day E11.9 400 Strip 3 4 Active metFORMIN HCl 500 MG Oral Tablet (Glucophage)Indic ations:Type 2 diabetes mellitus without complication, without long-term current use of insulin (HCC) take 1 tablet by mouth daily with breakfast for 2 weeks, then 2 tablets daily for 2 weeks, then 2 tablets twice daily with breakfast and dinner 360 Tablet 3 03/21/2024 11:13 AM EST 4 Active Cyclobenzaprine HCl 10 MG Oral Tablet (Flexeril) Take 1 Tablet by mouth 2 times a day as needed for Muscle spasms. 10 Tablet 2 4 Active Mometasone Furo-Formoterol Fum 200-5 MCG/ACT Inhalation Aerosol (Dulera)Indicatio ns:Moderate persistent asthma without complication Inhale 2 Puffs by mouth in the morning and 2 Puffs before bedtime. 39 g 3 12/28/2023 1:05 PM EST 4 Active Atorvastatin Calcium 10 MG Oral Tablet (Lipitor)Indicati ons:Dyslipidemia, goal LDL below 70 Take 1 Tablet by mouth in the morning. 90 Tablet 3 03/21/2024 11:13 AM EST 4 Active Montelukast Sodium 10 MG Oral Tablet (Singulair)Indica tions:Other allergic rhinitis TAKE 1 TABLET BY MOUTH EVERY EVENING 90 Tablet 3 12/28/2023 1:05 PM EST 4 Active Albuterol Sulfate HFA 108 (90 Base) MCG/ACT Inhalation Aerosol SolutionIndicatio ns:Moderate persistent asthma without complication Inhale 2 Puffs by mouth every 4 hours as needed for Cough, Shortness of Breath or Wheezing. 18 g 3 12/28/2023 1:05 PM EST 4 Active Lisinopril 10 MG Oral Tablet (Prinivil) Take 1 Tablet by mouth in the morning. 90 Tablet 11 04/09/2024 1:00 PM EST 5 Active glipiZIDE ER 5 MG Oral Tablet Extended Release 24 Hour (glipiZIDE XL)Indications:Ty pe 2 diabetes mellitus with hemoglobin A1c goal of less than 7.0% (HCC) Take 1 Tablet by mouth in the morning. 90 Tablet 3 04/09/2024 12:59 PM EST Active documented as of this encounter (statuses as of 04/19/2024) Active Problems Problem Noted Date Diagnosed Date Type 2 diabetes mellitus wit h diabetic peripheral angiopathy without gangrene 04/04/2024 Type 2 diabetes mellitus wit h hemoglobin A1c goal of less than 7.0% 12/28/2023 Body mass index (BMI) of 50.0 to 59.9 in adult 1 03/05/2021 Overview: Per Obesity protocol - Per Obesity protocol - Per Obesity Taxonomy Monocytosis 10/05/2020 Food insecurity 2020 Overview: Per [facility] Protocol Mixed rhinitis 07/30/2020 Morbid obesity due to excess calories 01/19/2017 RUPINDER (obstructive sleep apnea) 05/31/2016 Overview (05/31/2016): 2 [facility] Oxygen Unresponsive episode 04/14/2016 Moderate persistent asthma without complication 06/23/2015 BACKACHE NOS 08/24/2004 Cervicalgia 08/24/2004 Anxiety state 08/24/2004 Other allergic rhinitis 08/24/2004 Overview (12/13/2016): ICD-10 update of inactive term documented as of this encounter (statuses as of 04/19/2024) Resolved Problems Problem Noted Date Diagnosed Date Resolved Date Body mass index (BMI) of 45. 0 to 49.9 in adult 12/28/2020 01/06/2022 Overview: Per Obesity protocol - Per Obesity Taxonomy Type 2 diabetes mellitus wit hout complication, without long-term current use of insulin 12/18/2019 03/21/2024 Overview (03/21/2024): Same condition on PL w Goal Morbid obesity with BMI of 50.0-59.9, adult 05/18/2009 12/31/2020 Overview (05/18/2009): Per Obesity Taxonomy ADVANCE DIRECTIVE INFORMATION 09/27/2004 12/25/2023 Overview (09/27/2004): No, Advance Directive brochure offered , patient declined. OBESITY, UNSPECIFIED 06/01/2000 010 Overview (05/18/2009): Per Obesity Taxonomy EXT ASTHMA W-O STAT ASTH 04/2015 documented as of this encounter (statuses as of 04/19/2024) Immunizations Name Administration Dates Next Due COVID-19 mRNA, LNP-s, No Pre serve, 2-Dose Series (Moderna) 06/22/2020,05/25/2020 Diptheria/Tetanus (Adult) 01/16/2006 H1N1 2009 Influenza, IM 02/24/2009 Pneumococcal Conjugate Vacci ne, 20-valent ([id number]) 06/16/2023 Seasonal Influenza Vac., MDV , IM, 0.5 mL (Fluzone) 11/30/2011,12/07/2010,02/15/2010,2009,12/09/2005 Seasonal Influenza Virus Vac cine, Unspecified Formulation 12/08/2016,11/30/2011,12/07/2010,2009,02/24/2009,12/09/2005,12/27/2004,1 Seasonal Influenza, Quadriva lent, No Preserve, IM 12/08/2016 TDAP (age 10 and older)(Boostrix) 06/16/2023,10/2011 Zoster Vaccine Recombinant (Shingrix) 04/18/2024 documented as of this encounter Social History Tobacco Use Types Packs/Day Years Used Date Smoking Tobacco: Never Smokeless Tobacco: Never Comments:No current passive smoke exposures Alcohol Use Standard Drinks/Week Comments Yes 0 (1 standard drink = 0.6 oz pur e alcohol) rare PHQ-2 Answer Date Recorded PHQ Adult Total Score 0 12/18/2023 Hunger Vital Sign Answer Date Recorded Within the past 12 months, y ou worried that your food would run out before you got the money to buy more. Patient declined Within the past 12 months, t he food you bought just didn't last and you didn't have money to get more. Patient declined Childcare Answer Date Recorded Do you feel overwhelmed with taking care of a child, family member or friend? No 04/04/2024 Does your family need help f inding childcare? (Household - for ages 0-17 years) Not on file 04/04/2024 Clothing Answer Date Recorded Have you been unable to get clothing when it was really needed? No 04/04/2024 Is your family able to get c lothes or diapers when needed? (Household - for ages 0-17 years) Not on file 04/04/2024 Personal Safety Answer Date Recorded Do you feel unsafe or have concerns for your saf ety? No 04/04/2024 Do you have concerns for you r family's safety? (Household - for ages 0-17 years) Not on file 04/04/2024 Utilities Answer Date Recorded Do you have trouble paying y our heating, water, or electric bill? No 04/04/2024 Is your family able to pay t he heat, water, or electric bill? (Household - for ages 0-17 years) Not on file 04/04/2024 Does your family have access to good internet? (Household - for ages 0-17 years) Not on file 04/04/2024 Employment Status Answer Date Recorded Are you unemployed or without regular income? No 04/04/2024 Does the household have a re gular source of income? (Household - for ages 0-17 years) Not on file 04/04/2024 Social Connections Answer Date Recorded How often do you feel lonely or isolated from th ose around you? Never 04/04/2024 Financial Resource Strain Answer Date R ecorded Do you have any trouble payi ng for your medications, or do you think you might in the future? No 04/04/2024 Does your family have troubl e paying for medicine? (Household - for ages 0-17 years) Not on file 04/04/2024 Transportation Needs Answer Date Record ed Do you have trouble getting a ride to medical visits or work? (Adult - for ages 18 years and over) Not on file 04/04/2024 Does your family have a hard time getting a ride to doctors visits? (Household - for ages 0-17 years) Not on file 04/04/2024 Has lack of transportation k ept you from medical appointments, meetings, work, or from getting things needed for daily living? Check all that apply. No 04/04/2024 Do you (or your family) have trouble finding or paying for a ride (transportation)? (Household - for ages 0-17 years) Not on file 04/04/2024 Housing Stability Answer Date Recorded Do you currently live in a s helter or have no steady place to sleep at night? No 04/04/2024 Do you think you are at risk of becoming homeless? (Adult - for ages 18 years and over) Not on file 04/04/2024 Does your family worry about paying for your home or becoming homeless? (Household - for ages 0-17 years) Not on file 0 04/04/2024 Are you homeless or worried that you might be in the future? No 04/04/2024 Are you (or your family) aria eless or worried that you might be in the future? (Household - for ages 0-17 years) Not on file Food Insecurity Answer Date Recorded Within the past 12 months, y ou worried that your food would run out before you got the money to buy more. Patient declined Within the past 12 months, t he food you bought just didn't last and you didn't have money to get more. Patient declined Do you need food for this week? No 04/04/2024 Sex and Gender Information Value Date Recorded Sex Assigned at Male 03/01/2019 1:34 PM EST Legal Sex Male 6:00 AM EST Gender Identity Male 03/01/2019 1:34 PM EST Sexual Orientation Straight 04/04/2024 9: 48 AM EST Sexual Orientation Choose not to disclose 2024 9:48 AM EST documented as of this encounter Plan of Treatment Upcoming Encounters Date Type Department Care Team (Late st Contact Info) Description 05/17/2024 9:30 AM EDT Office Visit Pharmacy, [facility] [address] [place] [address] Pharmacist1, [facility] [address] [place] [address] 10/07/2024 10:00 AM EDT Office Visit Family Practice [facility] [place] [address] [facility] [place], [place] [address] Bur[place]on Jeison ROCHE MD [address] [facility] [address] [place] [address] Scheduled Orders Name Type Priority Associated Diagnoses Orde r Schedule LIPID PANEL WITH DIRECT LDL IF TG IS HIGH Lab Routine Type 2 diabetes mellitus with hemoglobin A1c goal of less than 7.0% (HCC) Expected: 04/19/2024 (Approximate), Expires: 04/19/2025 BASIC METABOLIC PANEL Lab Routine Type 2 diabetes mellitus with hemoglobin A1c goal of less than 7.0% (HCC) Expected: 04/19/2024 (Approximate), Expires: 04/19/2025 Health Maintenance Due Date Last Done Comments Hepatitis B Vaccine (1 of 3 - 19+ 3-dose series) 1988 Colonoscopy 2014 Fecal Occult Blood Test 2014 Sigmoidoscopy 2014 COVID-19 Vaccine ( season) 2023 06/22/2020, 05/25/2020 Influenza Vaccine (FLU shot) (#1) 2023 12/08/2016, 12/08/2016, 11/30/2011, Additional history exists Zoster Vaccines (2 of 2) 06/13/2024 04/18/2024 Diabetic Eye Exam 06/15/2024 06/16/2023, , 04/05/2021, Additional history exists Diabetic Foot Exam 06/15/2024 06/16/2023, 0 04/05/2021, 01/13/2020 HbA1c 10/02/2024 04/04/2024, 11/21, 05/01/2023, Additional history exists Depression Screening 12/17/2024 12/18/2023 GFR 12/17/2024 12/18/2023, 04/20, 04/12/2022, Additional history exists Albumin/Creatinine Ratio 04/04/2025 025, 04/12/2022, 04/05/2021, Additional history exists B-12 04/04/2025 04/04/2024, 03/24, 04/05/2021, Additional history exists Cologuard 01/10/2027 01/11/2024, 12/21, 01/05/2024, Additional history exists Colorectal Cancer Screening 01/10/2027 Lipid Panel 04/30/2028 05/01/2023, 03/24, 12/14/2020, Additional history exists DTap/Tdap Vaccines (7 - Td or Tdap) 06/15/2033 06/16/2023, 08/29/2011, 01/16/2006, Additional history exists Pneumococcal Vaccine: 50+ Years Completed 06/16/2023, 08/27/2002 HPV (Gardasil) Vaccine Aged Out No lo nger eligible based on patient's age to complete this topic MENINGOCOCCAL (MENACTRA/MENVEO) Aged Out No longer eligible based on patient's age to complete this topic Meningitis B Vaccine (Bexsero/Trumemba) Aged Out No longer eligible based on patient's age to complete this topic documented as of this encounter Medical Devices Not on filedocumented as of this encounter Visit Diagnoses Diagnosis Type 2 diabetes mellitus with hemoglobin A1c goal of less than 7.0% (HCC)- Primary documented in this encounter Care Teams Child And Family Therapist Relationship Specialty Start Date End Date Jeison Gandhi III, MD [address] [facility] [place], [place] [address] PCP - General 12/02/04 documented as of this encounter
--- OUTSIDE RECORDS SUMMARY | 2024-04-25 10:38 | External Medical Summary | Summary of Care ---
Author Name Unknown Organization [facility] Address [address] [place] [address] Phone [phone] Care Team Providers Care Workers Compensation Claims Examiner Name Role Phone Hiram ROCHE MD, Jeison Hernandez Primary Care Provider [phone] Reason for Visit * Reason Onset Date Comments Blood Pressure Check 04/18/2024 Immunizations 04/18/2024 Shingrix Encounter Details Date Type Department Care Team (Late st Contact Info) Description 04/18/2024 10:30 AM EST Nurse Only Ancillary [facility] [address] [place] [address] [place], Nurse Fam Prac [facility] [address] [place] [address] Blood Pressure Check; Immunizations (Shing... Allergies Active Allergy Reactions Criticality Noted Date Comments Aspirin 12/01/1999 upset stomach Morphine 04/27/2015 Makes him want to rip things apart. documented as of this encounter (statuses as of 04/18/2024) Medications OneTouch Delica Lancets 33G Twice daily [...] as of this encounter (statuses as of 04/18/2024) Active Problems Problem Noted Date Diagnosed Date [...] as of this encounter (statuses as of 04/18/2024) Resolved Problems Problem Noted Date Diagnosed Date [...] as of this encounter (statuses as of 04/18/2024) Immunizations Name Administration Dates Next Due COVID-19 mRNA, LNP-s, No Pre serve, 2-Dose Series (Moderna) 06/22/2020,05/25/2020 Diptheria/Tetanus (Adult) 01/16/2006 H1N1 2009 Influenza, IM 02/24/2009 Pneumococcal Conjugate Vacci ne, 20-valent ([id number]) 06/16/2023 Seasonal Influenza Vac., MDV , IM, [...] AM EST documented as of this encounter Last Filed Vital Signs Vital Sign Reading Time Taken Comments Blood Pressure 124/80 04/18/2024 11:10 AM EST Pulse 93 04/18/2024 11:10 AM EST Temperature - - Respiratory Rate - - Oxygen Saturation - - Inhaled Oxygen Concentration - - Weight - - Height - - Body Mass Index - - documented in this encounter Patient Instructions * Patient Instructions* Reshma Skinner LPN - 04/18/2024 11:15 AM EST ~~PATIENT INSTRUCTIONS FOR SHINGRIX VACCINE~~ Possible side effects of Shingrix vaccine, (shingles), are usually mild and can include: 1. Soreness or redness at injection site 2. Low grade fever 3. Body aches You may use a fever / pain reducing medication as needed for these symptoms. LET YOUR DOCTOR KNOW IMMEDIATELY IF YOU HAVE DIFFICULTY BREATHING OR SWALLOWING, EXPERIENCE ITCHINGOF FEET OR HANDS, HAVE SWELLING OF EYES, FACE OR INSIDE OF NOSE. documented in this encounter Progress Notes * Reshma Skinner LPN - 04/18/2024 11:12 AM EST Yogi Noyola presented for blood pressure check per provider orders. The blood pressure was obtained using the left arm in the sitting position using a adult large cuff. The results were charted in Vital Signs. BP Readings from Last 3 Encounters: 04/18/24 124/80 04/04/24 150/71 12/18/23 130/84 BP 124/80 (BP Site: Left Arm, BP Position: Sitting, BP Cuff Size: Large) | Pulse 93 Patient denies headache, pressure in head, dizziness, lightheadedness, chest discomfort, focal neurological symptoms, change in vision, nose bleeds. Did patient take medications today? Not yet Patient was instructed to follow-up with their primary care provider. Does the patient have active shingles? No If, yes, patient must wait to receive vaccine till after rash is gone. Does the patient have an illness today with a fever more than 101?F? No Has the patient ever had a serious allergic reaction after receiving a vaccination? No Has the patient had a blood test showing they are not immune to Chicken Pox (rare)? No If yes, should get Chicken pox vaccine instead of shingrix. Verified patient has prescription/drug coverage. Patient has been informed that [employer] copays are close to $0. In most cases copays will be around $10. The maximum co-pay patients may get could as high as $200. yes Shingrix Vaccine Information Sheet has been provided. Reshma Skinner LPN 04/18/2024 11:15 AM IMMUNIZATION ADMINISTRATION DOCUMENTATION Time Out Procedure Performed: Yes Patient Identified (Ask Name/Date of ): Yes Patient allergic to latex?No VFC Stock? No Immunization(s) verified: Yes, Immunization Name: Shingrix, VIS Sheet(s) given: Yes Verified Side and Site: Yes Verified Shot(s) with Parent(s)/Patient: Yes Shingrix was administered per clinic protocol. Patient received the Shingrix VIS (Vaccine Information Sheet). Reshma Skinner LPN, 04/18/2024, 11:15 AM documented in this encounter Plan of Treatment Upcoming Encounters Date Type Department Care Team (Late st Contact Info) Description 04/19/2024 8:10 AM EST Telemedicine Pharmacy, [facility] [address] [facility] [place] [address] Pharmacist1, [facility] [address] [facility] [address] 10/07/2024 10:00 AM EDT Office Visit Family Practice [facility] [address] [facility] [place] [address] Hiram III, Jeison Hernandez MD [address] [place] [address] Scheduled Orders Name Type Priority Associated Diagnoses Orde r Schedule BLOOD PRESSURE Procedures Routine HTN, goal below 140/90 Ordered: 04/18/2024 Health Maintenance Due Date Last Done Comments [...] as of this encounter Visit Diagnoses Diagnosis HTN, goal below 140/90- Primary Unspecified essential hypertension Need for vaccination for zoster Need for prophylactic vaccination and inoculation against other viral diseases documented in this encounter Care Teams Workers Compensation Claims Examiner Relationship Specialty Start Date End Date Jeison Gandhi III, MD [address] [facility] [place] [address] PCP - General 12/02/04 documented as of this encounter"
--- OUTSIDE RECORDS SUMMARY | 2024-04-25 10:38 | External Medical Summary | Summary of Care ---
Author Name Unknown Organization [facility] Address [address] [place] [address] Phone [phone] Care Team Providers Care Policeman Name Role Phone Hiram ROCHE MD, Jeison Hernandez Primary Care Provider [phone] Reason for Visit * Reason Onset Date Comments Medication Problem 04/19/2024 Jardiance 25 mg daily Encounter Details Date Type Department Care Team (Late st Contact Info) Description 04/19/2024 Telephone Pharmacy, [facility] [address] [place] [address] [facility] [address] [place] [address] Medication Problem (Jardiance 25 mg daily) Allergies Active Allergy Reactions Criticality Noted Date [...] BY MOUTH EVERY EVENING 90 Tablet 3 04/19/2024 4:52 PM EST 4 Active Albuterol Sulfate HFA [...] 90 Tablet 3 04/09/2024 12:59 PM EST 5 Active Empagliflozin 25 MG Oral Tablet (Jardiance) Take 1 Tablet by mouth in the morning. Please see note for co-pay card info. 90 Tablet 1 5 Active documented as of this encounter (statuses [...] IM 02/24/2009 Pneumococcal Conjugate Vacci ne, 20-valent ([id number]) 06/16/2023 Seasonal Influenza Vac., MDV , IM, [...] AM EST documented as of this encounter Miscellaneous Notes * Telephone Encounter - Altagracia Blankenship CPhT - 04/19/2024 1:29 PM EST Pt returning cb. Transferred back to office. Thank you, Altagracia Blankenship Powdered Sugar Pulverizer Operator II [facility] 04/19/2024, 1:29 PM * Telephone Encounter - Tavon Pritchard RPh - 04/19/2024 1:20 PM EST Pharmacy reimbursement team obtained co-pay card for jardiance 25 mg daily. Rx sent to [facility]. Card# [id number] [facility] [id number] [facility] [employer] [id number] Contacts Contact Date/Time Type Contact Phone/Fax 04/19/2024 01:25 PM EST Phone (Outgoing) Yogi Noyola (Self) [phone] (M) Left Message - [facility] to make aware of co-pay card 1:23 PM - called pt to [facility] and inform of the copay card and let pt know to not start Jardiance prior to seeing next visit at [facility]. Will assess then. Tavon Pritchard PharmD, [facility] PGY1 Boat Outboard Engine Mechanic [facility] 04/19/2024 1:28 PM * Telephone Encounter - Tavon Pritchard RPh - 04/19/2024 12:20 PM EST [place] pharmacy [place], Pt's Jardiance 25 mg daily is not affordable with insurance coverage. Could you please assist with pt's copay? Thank you! Tavon Pritchard PharmD, [facility] PGY1 [employer] Mechanic [facility] 04/19/2024 12:31 PM documented in this encounter Plan of Treatment Upcoming Encounters Date Type Department Care Team (Late st Contact Info) Description 05/17/2024 9:30 AM EDT Office Visit Pharmacy, [facility] [address] [place] [address] Pharmacist1, [facility] [address] [place] [address] [address] 10/07/2024 10:00 AM EDT Office Visit Family Practice [facility] [address] [place] [address] [place] III, Jeison Hernandez MD [address] [place] [address] Health Maintenance Due Date Last Done Comments Hepatitis B Vaccine (1 of 3 - 19+ 3-dose series) 1988 Colonoscopy 2014 Fecal Occult Blood Test 2014 Sigmoidoscopy 2014 COVID-19 Vaccine (2023- season) 2023 06/22/2020, 05/25/2020 Influenza Vaccine (FLU [...] Not on filedocumented as of this encounter Care Teams Policeman Relationship Specialty Start Date End Date Jeison Gandhi III, MD [address] [place] [address] PCP - General 12/02/04 documented as of this encounter
--- OUTSIDE RECORDS SUMMARY | 2024-04-25 10:38 | External Medical Summary | Summary of Care ---
Author Name Unknown Organization [facility] Address [address] [place] [address] Phone [phone] Care Team Providers Care Road Mechanic Name Role Phone Hiram ROCHE MD, Jeison Hernandez Primary Care Provider [phone] Reason for Visit * Reason Onset Date Comments Blood Pressure Check 04/18/2024 Encounter Details Date Type Department Care Team (Late st Contact Info) Description 04/18/2024 Telephone Family Practice [facility] [place] [address] [facility] [place] [address] Jeison Gandhi III, MD [address] [place] [address] Blood Pressure Check Allergies Active Allergy Reactions Criticality Noted Date [...] hemoglobin A1c goal of less than 7.0% ([facility]) Take 1 Tablet by mouth in the [...] IM 02/24/2009 Pneumococcal Conjugate Vacci ne, 20-valent ([id number]) 06/16/2023 Seasonal Influenza Vac., MDV , IM, [...] No 04/04/2024 Does the household have a [facility] source of income? (Household - for ages [...] encounter Miscellaneous Notes * Telephone Encounter - Reshma Skinner LPN - 04/18/2024 11:14 AM EST Yogi Noyola presented for blood [...] to follow-up with their primary care provider. documented in this encounter Plan of Treatment Upcoming Encounters Date Type Department Care Team (Late st Contact Info) Description 04/19/2024 8:10 AM EST Telemedicine Pharmacy, [facility] [address] [facility] [place] [address] Pharmacist1, [facility] [address] [facility] [place] [address] 10/07/2024 10:00 AM EDT Office Visit Family Practice [facility] [address] [facility] [place] [address] Hiram IIIJeison MD [address] [facility] [place] [address] Health Maintenance Due Date Last Done Comments [...] 06/16/2023, 0 04/05/2021, 01/13/2020 HbA1c 10/02/2024 04/04/2024, 1009/2023, 05/01/2023, Additional history exists Depression Screening 12/17/2024 [...] filedocumented as of this encounter Care Teams Road Mechanic Relationship Specialty Start Date End Date Jeison Gandhi III, MD [address] [facility] [place] [address] PCP - General 12/02/04 documented as of this encounter"
--- OUTSIDE RECORDS SUMMARY | 2024-04-25 10:39 | External Medical Summary | Summary of Care ---
Author Name Unknown Organization [facility] Address [address] [place] [address] Phone [phone] Care Team Providers Care Energy Efficiency Specialist Name Role Phone Hiram ROCHE MD, Jeison Hernandez Primary Care Provider [phone] Reason for Visit * Reason Comments Diabetes Follow-Up Diabetes Education Dosage Adjustment In Person (Anticoag Cl inic) * Evaluate & Treat - Unlimited Visits (Within 10 days (routine)) - Authorized Specialty Diagnoses / Procedures Referred By Kaela burns Referred To Contact Pharmacist / Pharmacy Diagnoses Type 2 diabetes mellitus without complication, without long-term current use of insulin (HCC) Jeison Gandhi III, MD [address] [place], [place] [address] Referral ID Status Reason Start Date Expiration Date Visits Requested Visits Authorized [id number] Authorized Specialty Services Required 4 06/15/2024 99 99 Encounter Details Date Type Department Care Team (Late st Contact Info) Description 12/28/2023 10:20 AM EST Office Visit Pharmacy, [facility] [address] [place] [address] Pharmacist1, [facility] [address] [place] [address] Type 2 diabetes mellitus with hemoglobin A1c goal of less than 7.0% ([facility])*; Other allergic rhinitis; Type 2 diabetes mellitus without complication, without long-term current use of insulin (HCC); Dyslipidemia, goal LDL below 70; Moderate persistent asthma without complication Allergies Active Allergy Reactions Criticality Noted Date Comments Aspirin 12/01/1999 upset stomach Morphine 04/27/2015 Makes him want to rip things apart. documented as of this encounter (statuses as of 12/28/2023) Medications Medication Sig Dispensed Refills Start Date End Date Status Kinza Bhagat Lancets 33G Twice daily 100 Each 3 12/31/2019 Active OneTouch Verio w/Device Kit Use up to 4 times a day E11.9 1 Kit 12/31/2019 Active Ipratropium-Albute rol 0.5-2.5 (3) MG/3ML Inhalation Solution (Duoneb)Indication s:Exacerbation of persistent asthma, unspecified asthma severity USE 1 AMPULE IN NEBULIZER EVERY 4 HOURS NEEDED FOR SHORTNESS OF BREATH OR WHEEZING 90 mL 1 04/22/2022 Active OneTouch Verio In Vitro Strip (Glucose Blood)Indications: Type 2 diabetes mellitus without complication, without long-term current use of insulin (HCC) Use up to 4 times a day E11.9 400 Strip 3 06/16/2023 Active metFORMIN HCl 500 MG Oral Tablet (Glucophage)Indica tions:Type 2 diabetes mellitus without complication, without long-term current use of insulin (HCC) take 1 tablet by mouth daily with breakfast for 2 weeks, then 2 tablets daily for 2 weeks, then 2 tablets twice daily with breakfast and dinner 360 Tablet 3 12/18/2023 Active Cyclobenzaprine HCl 10 MG Oral Tablet (Flexeril) Take 1 Tablet by mouth 2 times a day as needed for Muscle spasms. 10 Tablet 2 12/18/2023 Active Mometasone Furo-Formoterol Fum 200-5 MCG/ACT Inhalation Aerosol (Dulera)Indication s:Moderate persistent asthma without complication Inhale 2 Puffs by mouth in the morning and 2 Puffs before bedtime. 39 g 3 12/28/2023 Active Atorvastatin Calcium 10 MG Oral Tablet (Lipitor)Indicatio ns:Dyslipidemia, goal LDL below 70 Take 1 Tablet by mouth in the morning. 90 Tablet 3 12/28/2023 Active Montelukast Sodium 10 MG Oral Tablet (Singulair)Indicat ions:Other allergic rhinitis TAKE 1 TABLET BY MOUTH EVERY EVENING 90 Tablet 3 12/28/2023 Active Albuterol Sulfate HFA 108 (90 Base) MCG/ACT Inhalation Aerosol SolutionIndication s:Moderate persistent asthma without complication Inhale 2 Puffs by mouth every 4 hours as needed for Cough, Shortness of Breath or Wheezing. 18 g 3 12/28/2023 Active Albuterol Sulfate HFA 108 (90 Base) MCG/ACT Inhalation Aerosol Solution Inhale 2 Puffs by mouth every 4 hours as needed for Cough, Shortness of Breath or Wheezing. 18 g 3 12/15/2022 4 Discontinue d(Refill) Atorvastatin Calcium 10 MG Oral Tablet (Lipitor) TAKE 1 TABLET BY MOUTH EVERY MORNING 90 Tablet 01/19/2023 4 Discontinue d(Refill) Empagliflozin 25 MG Oral Tablet (Jardiance) TAKE 1 TABLET BY MOUTH EVERY MORNING 90 Tablet 04/23/2023 4 Discontinue d(Formulary /Cost) Montelukast Sodium 10 MG Oral Tablet (Singulair)Indicat ions:Other allergic rhinitis TAKE 1 TABLET BY MOUTH EVERY EVENING 90 Tablet 1 08/23/2023 4 Discontinue d(Refill) Pulmicort Flexhaler 180 MCG/ACT Inhalation Aerosol Powder Breath Activated 09/17/2023 4 Discontinue d(Medicatio n List Clean Up) documented as of this encounter (statuses as of 12/28/2023) Active Problems Problem Noted Date Diagnosed Date Type 2 diabetes mellitus wit h hemoglobin A1c goal of less than 7.0% 12/28/2023 Body mass index (BMI) of 50.0 to 59.9 in adult 1 03/05/2021 Overview: Per Obesity protocol - Per Obesity protocol - Per Obesity Taxonomy Monocytosis 10/05/2020 Food insecurity 2020 Overview: Per [facility] Protocol Mixed rhinitis 07/30/2020 Type 2 diabetes mellitus wit hout complication, without long-term current use of insulin 12/18/2019 Morbid obesity due to excess calories 01/19/2017 RUPINDER (obstructive sleep apnea) 05/31/2016 Overview: 2 [facility] Oxygen Unresponsive episode 04/14/2016 Moderate persistent asthma without complication 06/23/2015 BACKACHE NOS 08/24/2004 Cervicalgia 08/24/2004 Anxiety state 08/24/2004 Other allergic rhinitis 08/24/2004 Overview: ICD-10 update of inactive term documented as of this encounter (statuses as of 12/28/2023) Resolved Problems Problem Noted Date Diagnosed Date Resolved Date Body mass index (BMI) of 45. 0 to 49.9 in adult 12/28/2020 01/06/2022 Overview: Per Obesity protocol - Per Obesity Taxonomy Morbid obesity with BMI of 50.0-59.9, adult 05/18/2009 12/31/2020 Overview: Per Obesity Taxonomy ADVANCE DIRECTIVE INFORMATION 09/27/2004 12/25/2023 Overview: No, Advance Directive brochure offered , patient declined. OBESITY, UNSPECIFIED 06/01/2000 010 Overview: Per Obesity Taxonomy EXT ASTHMA W-O STAT ASTH 04/2015 documented as of this encounter (statuses as of 12/28/2023) Immunizations Name Administration Dates Next Due COVID-19 mRNA, LNP-s, No Pre serve, 2-Dose Series (Moderna) 06/22/2020,05/25/2020 DTWP - Dipth/Tet/Whole Cell Pertussis ,03/10/1970,02/03/1970,12/30 Diptheria/Tetanus (Adult) 01/16/2006 H1N1 2009 Influenza, IM 02/24/2009 Measles Vaccine 02/26/1994 OPV - Polio Virus Vaccine (Oral) 978,05/28/1974,03/10/1970,12/30 Pneumococcal Conjugate Vacci ne, 20-valent ([id number]) 06/16/2023 Pneumococcal Polysaccharide PPV23 (Pneumovax) 08/27/2002 Rubella Vaccine 07/28/1970 Seasonal Influenza Vac., MDV , IM, 0.5 mL (Fluzone) 11/30/2011,12/07/2010,02/15/2010,02/24,12/09/2005,12/27/2004,12/17/2002 Seasonal Influenza Virus Vac cine, Unspecified Formulation 12/08/2016,11/30/2011,12/07/2010,02/15,02/24/2009,12/09/2005,12/27/2004 ,12/17/2002 Seasonal Influenza, Quadriva lent, No Preserve, IM 12/08/2016 TDAP (age 10 and older)(Boostrix) 06/16/2023,10/2011 documented as of this encounter Social History Tobacco Use Types Packs/Day Years Used Date Smoking Tobacco: Never Smokeless Tobacco: Never Comments:No current passive smoke exposures Alcohol Use Standard Drinks/Week Comments Yes 0 (1 standard drink = 0.6 oz pur e alcohol) rare PHQ-2 Answer Date Recorded PHQ Adult Total Score 0 12/18/2023 Hunger Vital Sign Answer Date Recorded Worried About Running Out of Food in the Last Ye ar Often true 03/01/2019 Ran Out of Food in the Last Year Often true 03/01/2019 Utilities Answer Date Recorded Do you have trouble paying y our heating, water, or electric bill? (Adult - for ages 18 years and over) Not on file 08/08/2023 Is your family able to pay t he heat, water, or electric bill? (Household - for ages 0-17 years) Not on file 08/08/2023 Does your family have access to good internet? (Household - for ages 0-17 years) Not on file 08/08/2023 Social Connections Answer Date Recorded How often do you feel lonely or isolated from those around you? (Adult - for ages 18 years and over) Not on file 08/08/2023 Sex and Gender Information Value Date Recorded Sex Assigned at Male 03/01/2019 1:34 PM EST Gender Identity Male 03/01/2019 1:34 PM EST Sexual Orientation Choose not to disclose 2019 1:34 PM EST Job Start Date Occupation Industry Not on file Not on file Not on file documented as of this encounter Progress Notes * Krystian Bentley RPh - 12/28/2023 10:00 AM EST Medication Therapy [facility] - Diabetes Management Progress Note Yogi Noyola, identified by name and date of , is a 53 year old male being seen for diabetesmanagement/education. Patient presents for initial diabetic visit. All of the visit time was spent listening to the patient explain why he stopped his medications andhelping him get in contact with the Mail order pharmacy and getting his account set up. He told me which prescriptions needed re-ordered. His A1C is elevated because he has not taken ANY medications for several months. I am sending his prescriptions to his PCP for signature so he can get all of his DM, Asthma and cholesterol medications restarted. He will repeat his A1C when seeing his PCP. He will have restarted Metformin for 3 months. I will reschedule patient after A1C result available and IF A1C above goal. Past Medical History: Diagnosis Date Anxiety state 08/24/2004 Asthma, allergic Cervicalgia 08/24/2004 GERD (gastroesophageal reflux disease) Morbid obesity with BMI of 50.0-59.9, adult ([facility]) 05/18/2009 Per Obesity Taxonomy RUPINDER (obstructive sleep apnea) 05/31/2016 Osteoarthritis Type 2 diabetes mellitus without complication, without long-term current use of insulin ([facility]) 12/18/2019 Diagnosis: Type 2 DIABETES: Current diabetic medications: None in past months at least Medication Injection Site: N/A Glucose Review/SMBG: No log. Per patient 130-219 Hypoglycemia: Does your blood sugar go below 70 mg/dL? No Hyperglycemia symptoms present: polyurea, polydipsia Goal <7 Recent Labs Units 12/18/23 1026 05/01/23 0842 01/20/22 1028 HEMOGLOBIN A1C - [facility] % 7.9* 6.8* 7.9* Recent Labs Units 12/18/23 1026 05/01/23 0842 04/12/22 1103 ESTIMATED GLOMERULAR FILTRATION RATE - [facility] mL/min >90 >90 >90 CREATININE - [facility] mg/dL 0.7 1.0 0.7 Lab Results Component Value Date/Time CREATININE - [facility] 0.7 12/18/2023 10:26 AM CREATININE - [facility] 1.0 05/01/2023 08:42 AM CREATININE - [facility] 0.7 04/12/2022 11:03 AM CREATININE - [facility] 1.0 03/13/2020 09:44 AM CREATININE - [facility] 0.9 12/17/2019 02:35 PM CREATININE - [facility] 0.89 09/04/2017 12:00 AM CREATININE - [facility] 1.00 12/09/2015 12:00 AM CREATININE - [facility] 0.91 04/10/2015 12:00 AM CREATININE - [facility] 0.8 05/27/2014 11:03 AM CREATININE - [facility] 0.8 05/20/1996 02:00 PM CREATININE, RANDOM URINE - [facility] 70 04/12/2022 11:03 AM CREATININE, RANDOM URINE - [facility] 83 04/05/2021 09:55 AM CREATININE, RANDOM URINE - [facility] 138 03/13/2020 09:57 AM HYPERTENSION: Patient on ACEi/ARB: no, needs addressed at a future visit. Insufficient time. BP Readings from Last 3 Encounters: 12/18/23 130/84 06/16/23 118/70 12/14/22 120/80 Blood pressure at goal: yes HYPERLIPIDEMIA: Patient is taking moderate or high intensity statin: No. Prescription and no refills. New Rx sent today for Atorvastatin 10mg daily. Current regimen: None Goal statin intensity: moderate The 10-year ASCVD risk score (Dylan GARDINER, et al., 2019) is: 9.5% Values used to calculate the score: Age: 53 years Sex: Male Is Non- : No Diabetic: Yes Tobacco smoker: No Systolic Blood Pressure: 130 mmHg Is BP treated: No HDL Cholesterol: 55 mg/dL Total Cholesterol: 208 mg/dL No results for input(s): "LDLDIRECT", "LDLCALC", "LDLCHOL" in the last 34443 hours. HEALTH MAINTENANCE REVIEW: Health Maintenance Due Topic Date Due Hepatitis B Vaccine (1 of 3 - 19+ 3-dose series) Never done Zoster Vaccines (1 of 2) Never done Albumin/Creatinine Ratio 04/12/2023 B-12 04/12/2023 Colorectal Cancer Screening 10/08/2023 Influenza Vaccine (FLU shot) (1) 10/22/2023 COVID-19 Vaccine ( season) 2023 ASSESSMENT & PLAN: ICD-10-CM 1. Type 2 diabetes mellitus with hemoglobin A1c goal of less than 7.0% (HCC) E11.9 2. Other allergic rhinitis J30.89 3. Type 2 diabetes mellitus without complication, without long-term current use of insulin (HCC) E11.9 4. Dyslipidemia, goal LDL below 70 E78.5 5. Moderate persistent asthma without complication J45.40 BG Readings - Blood sugars uncontrolled. No log to appointment. Medications - Reviewed current regimen, patient is not adherent to regimen. Restarting Metformin. Diet, Exercise, Lifestyle - Discuss with patient at next visit, if needed. Patient is agreeable to SMBG 2 time(s) daily. Patient aware to contact clinic if any hypoglycemia before next visit. MEDICATION CHANGES: yes, see below; preferred pharmacy: [facility]) Diabetic Medications: START: Metformin 500mg 2 tablets twice daily HEALTH MAINTENANCE INTERVENTIONS: Labs: Ordered & Scheduled: Urine Microalbumin and Vitamin B12 Immunizations: needs flu, shingles, Hepatitis B series Foot Exam: Up to Date Eye Exam: Up to Date Annual Wellness Visit: N/A I spent a total of 30-39 minutes (exact time 37 mins) on the date of service in preparation, delivery, and documentation of the care provided to Yogi Noyola excluding any time spent in the performance of separately billed services or time spent by another provider/QHP. FOLLOW UP: Phone call follow up in 3 months with A1C result after PCP visit. 03/28/2024 Krystian Yang RPh, ERNIE Clinical Pharmacist - [facility] 12/28/2023, 10:01 AM documented in this encounter Plan of Treatment Upcoming Encounters Date Type Department Care Team (Late st Contact Info) Description 03/27/2024 12:40 PM EST Office Visit Family Practice [facility] [address] [place] [address] Jeison Gandhi III, MD [address] [place] [address] 03/28/2024 5:30 PM EST Pharmacy Pharmacy, [facility] [address] [place] [address] Pharmacist1, [facility] [address] [place] [address] Health Maintenance Due Date Last Done Comments Hepatitis B Vaccine (1 of 3 - 19+ 3-dose series) 1988 Colonoscopy 2014 Fecal Occult Blood Test 2014 Sigmoidoscopy 2014 Zoster Vaccines (1 of 2) 09/29/2019 Albumin/Creatinine Ratio 04/12/2023 023, 04/05/2021, 03/13/2020 B-12 04/12/2023 04/12/2022, 03/23, 03/13/2020 Cologuard 10/08/2023 10/07/2020, 09/20, 09/29/2020 Colorectal Cancer Screening 10/08/2023 COVID-19 Vaccine ( season) 2023 06/22/2020, 05/25/2020 Influenza Vaccine (FLU shot) (#1) 2023 12/08/2016, 12/08/2016, 11/30/2011, Additional history exists Diabetic Eye Exam 06/15/2024 06/16/2023, , 04/05/2021, Additional history exists Diabetic Foot Exam 06/15/2024 06/16/2023, 0 04/05/2021, 01/13/2020 HbA1c 06/17/2024 12/18/2023, 04/20, 12/09/2022, Additional history exists Depression Screening 12/17/2024 12/18/2023 GFR 12/17/2024 12/18/2023, 04/20, 04/12/2022, Additional history exists Lipid Panel 04/30/2028 05/01/2023, 03/24, 12/14/2020, Additional history exists DTap/Tdap Vaccines (7 - Td or Tdap) 06/15/2033 06/16/2023, 08/29/2011, 01/16/2006, Additional history exists Pneumococcal Vaccine: Pediatrics (0 to 5 Years) and At-Risk Patients (6 to 64 Years) Completed 06/16/2023, 08/27/2002 HPV (Gardasil) Vaccine Aged [...] goal of less than 7.0% (HCC)- Primary Other allergic rhinitis Type 2 diabetes mellitus without complication, without long-term current use of insulin (HCC) Dyslipidemia, goal LDL below 70 Other and unspecified hyperlipidemia Moderate persistent asthma without complication Unspecified asthma documented in this encounter Care Teams Energy Efficiency Specialist Relationship Specialty Start Date End Date Jeison Gandhi III, MD [address] [place] [address] PCP - General 12/02/04 documented as of this encounter
--- OUTSIDE RECORDS SUMMARY | 2024-04-25 10:39 | External Medical Summary | Summary of Care ---
Author Name Unknown Organization [facility] Address [address] [place] [address] Phone [phone] Care Team Providers Care Home Health Speech Therapist Name Role Phone Hiram ROCHE MD, Jeison Hernandez Primary Care Provider [phone] Reason for Referral * Evaluate & Treat - Unlimited Visits (Within 10 days (routine)) - Authorized Specialty Diagnoses / Procedures Referred By Controse t Referred To Contact Pharmacist / Pharmacy Diagnoses Type 2 diabetes mellitus without complication, without long-term current use of insulin ([facility]) Jeison Gandhi III, MD [address] [place] [address] Referral ID Status Reason Start Date Expiration Date Visits Requested Visits Authorized [id number] Authorized Specialty Services Required 4 06/15/2024 99 99 Question Answer Referral Priority Within 10 days (routine) Where should this appointment be scheduled? [facility] Referring Provider Role: Primary Care Reason for Referral: DM Target A1c: < 7 Comments Pharmacist Medication Therapy Management: Minimum frequency patient should be seen in person for medication management: as appropriate per clinical condition and patient status By my signature, I understand that my patient Yogi Noyola will have his medication therapy managed by the [facility] Medication Therapy [facility] ([facility]) per established policies, procedures, and protocols. I also certify that this referral may serve as an initiation of service for the management of drug therapy in the above noted patient. [facility] providers will be responsible for scheduling patient visits, obtaining appropriate laboratory studies, and adjusting medication management therapy per patient's need, in addition to those roles spelled out in the clinic policy, procedures, and drug management protocols. I understand that the service provided by the [facility] Clinic is voluntary and have informed patient that they can refuse the service at their discretion. I am aware that the [facility] will provide me with a copy of the patient encounter via my [facility]. I authorize the [facility] to carry out these activities on my behalf. I consider this program to be a necessary part of the patient's medical care. Jeison Gandhi III, MD Reason for Visit * Reason Comments Follow Up Encounter Details Date Type Department Care Team (Late st Contact Info) Description 12/18/2023 9:40 AM EDT Office Visit [facility] [place] [address] [facility] [place] [address] Jeison Gandhi III, MD [address] [facility] [place] [address] Type 2 diabetes mellitus without complication, without long-term current use of insulin (HCC)*; Morbid obesity due to excess calories ([facility]); Moderate persistent asthma without complication; Screen for colon cancer Allergies Active Allergy Reactions Criticality Noted Date Comments Aspirin 12/01/1999 upset stomach Morphine 04/27/2015 Makes him want to rip things apart. documented as of this encounter (statuses as of 12/25/2023) Medications Medication Sig Dispensed Refills Start Date End Date Status OneTouch Delica Lancets 33G Twice daily 100 Each 3 12/31/2019 Active OneTouch Verio w/Device Kit Use up to 4 times a day E11.9 1 Kit 12/31/2019 Active Ipratropium-Albut robert 0.5-2.5 (3) MG/3ML Inhalation Solution (Duoneb)Indicatio ns:Exacerbation of persistent asthma, unspecified asthma severity USE 1 AMPULE IN NEBULIZER EVERY 4 HOURS NEEDED FOR SHORTNESS OF BREATH OR WHEEZING 90 mL 1 04/22/2022 Active Albuterol Sulfate HFA 108 (90 Base) MCG/ACT Inhalation Aerosol Solution Inhale 2 Puffs by mouth every 4 hours as needed for Cough, Shortness of Breath or Wheezing. 18 g 3 12/15/2022 Active Atorvastatin Calcium 10 MG Oral Tablet (Lipitor) TAKE 1 TABLET BY MOUTH EVERY MORNING 90 Tablet 01/19/2023 Active Empagliflozin 25 MG Oral Tablet (Jardiance) TAKE 1 TABLET BY MOUTH EVERY MORNING 90 Tablet 04/23/2023 Active OneTouch Verio In Vitro Strip (Glucose Blood)Indications :Type 2 diabetes mellitus without complication, without long-term current use of insulin (HCC) Use up to 4 times a day E11.9 400 Strip 3 06/16/2023 Active Montelukast Sodium 10 MG Oral Tablet (Singulair)Indica tions:Other allergic rhinitis TAKE 1 TABLET BY MOUTH EVERY EVENING 90 Tablet 1 08/23/2023 Active Pulmicort Flexhaler 180 MCG/ACT Inhalation Aerosol Powder Breath Activated 09/17/2023 Active metFORMIN HCl 500 MG Oral Tablet [...] Muscle spasms. 10 Tablet 2 12/18/2023 Active metFORMIN HCl 500 MG Oral Tablet (Glucophage)Indic ations:Type 2 diabetes mellitus without complication, without long-term current use of insulin (HCC) TAKE 2 TABLETS BY MOUTH TWICE DAILY WITH MORNING AND EVENING MEAL 360 Tablet 03/09/2023 12/18/2023 Discontinue d(Refill) documented as of this encounter (statuses as of 12/25/2023) Active Problems Problem Noted Date Diagnosed Date Body mass index (BMI) of 50.0 to [...] 04/14/2016 Moderate persistent asthma without complication 06/23/2015 ADVANCE DIRECTIVE INFORMATION 09/27/2004 Overview: No, Advance Directive brochure offered , patient declined. BACKACHE NOS 08/24/2004 Cervicalgia 08/24/2004 Anxiety state 08/24/2004 Other allergic rhinitis 08/24/2004 Overview: ICD-10 update of inactive term documented as of this encounter (statuses as of 12/25/2023) Resolved Problems Problem Noted Date Diagnosed Date Resolved Date Body mass index (BMI) of 45. 0 to 49.9 in adult 12/28/2020 01/06/2022 Overview: Per Obesity protocol - Per Obesity Taxonomy Morbid obesity with BMI of 50.0-59.9, adult 05/18/2009 12/31/2020 Overview: Per Obesity Taxonomy OBESITY, UNSPECIFIED 06/01/2000 010 Overview: Per Obesity Taxonomy EXT ASTHMA W-O STAT ASTH 04/2015 documented as of this encounter (statuses as of 12/25/2023) Immunizations Name Administration Dates Next Due COVID-19 mRNA, LNP-s, No Pre serve, 2-Dose Series (Moderna) 06/22/2020,05/25/2020 Diptheria/Tetanus (Adult) 01/16/2006 H1N1 2009 Influenza, IM 02/24/2009 Pneumococcal Conjugate Vacci ne, 20-valent ([id number]) 06/16/2023 Seasonal Influenza Vac., MDV , IM, 0.5 mL (Fluzone) 11/30/2011,12/07/2010,02/15/2010,2009,12/09/2005 Seasonal Influenza Virus Vac cine, Unspecified Formulation 12/08/2016,11/30/2011,12/07/2010,2009,02/24/2009,12/09/2005,12/27/2004,1 Seasonal Influenza, Quadriva lent, No Preserve, IM 12/08/2016 TDAP (age 10 and older)(Boostrix) 06/16/2023,10/2011 documented as of this encounter Social History Tobacco Use Types Packs/Day Years Used Date Smoking Tobacco: Never Smokeless Tobacco: Never Tobacco Cessation:Counseling Given: Not Answered Comments:No current passive smoke exposures Alcohol Use [...] on file documented as of this encounter Last Filed Vital Signs Vital Sign Reading Time Taken Comments Blood Pressure 130/84 12/18/2023 9:58 AM EDT Pulse 79 12/18/2023 9:18 AM EDT Temperature 36.1 C (97 F) 12/18/2023 9:18 AM EDT Respiratory Rate 20 12/18/2023 9:18 AM EDT Oxygen Saturation 95% 12/18/2023 9:18 AM EDT Inhaled Oxygen Concentration - - Weight 148.1 kg (326 lb 6.4 oz) 12/18/2023 9:18 AM EDT Height 167.6 cm (5' 6") 12/18/2023 9:18 AM EDT Body Mass Index 52.68 12/18/2023 9:18 AM EDT documented in this encounter Progress Notes * Jeison Gandhi III, MD - 12/22/2023 11:19 AM EDT Subjective: Yogi Noyola is a 53 year old male. Chief Complaint Patient presents with Follow Up HPI: Follow up diabetes mellitus obesity having difficulties affording medicines at times difficulty affording food not eating a lower carbohydrate diet no bleeding urine or bowels no exertional chest pain or shortness of breath no swelling of his ankles PMH: Patient Active Problem List Diagnosis BACKACHE NOS Cervicalgia Anxiety state Other allergic rhinitis ADVANCE DIRECTIVE INFORMATION Moderate persistent asthma without complication Unresponsive episode RUPINDER (obstructive sleep apnea) Morbid obesity due to excess calories ([facility]) Type 2 diabetes mellitus without complication, without long-term current use of insulin ([facility]) Mixed rhinitis Monocytosis Food insecurity Body mass index (BMI) of 50.0 to 59.9 in adult ([facility]) Current Outpatient Medications Medication Sig Dispense Refill metFORMIN HCl 500 MG Oral Tablet (Glucophage) take 1 tablet by mouth daily with breakfast for 2 weeks, then 2 tablets daily for 2 weeks, then 2 tablets twice daily with breakfast and dinner 360 Tablet 3 Cyclobenzaprine HCl 10 MG Oral Tablet (Flexeril) Take 1 Tablet by mouth 2 times a day as needed forMuscle spasms. 10 Tablet 2 OneTouch Delica Lancets 33G Twice daily 100 Each 3 OneTouch Verio w/Device Kit Use up to 4 times a day E11.9 1 Kit 0 Ipratropium-Albuterol 0.5-2.5 (3) MG/3ML Inhalation Solution (Duoneb) USE 1 AMPULE IN NEBULIZER EVERY 4 HOURS NEEDED FOR SHORTNESS OF BREATH OR WHEEZING 90 mL 1 Albuterol Sulfate HFA 108 (90 Base) MCG/ACT Inhalation Aerosol Solution Inhale 2 Puffs by mouth every 4 hours as needed for Cough, Shortness of Breath or Wheezing. 18 g 3 Atorvastatin Calcium 10 MG Oral Tablet (Lipitor) TAKE 1 TABLET BY MOUTH EVERY MORNING 90 Tablet 0 Empagliflozin 25 MG Oral Tablet (Jardiance) TAKE 1 TABLET BY MOUTH EVERY MORNING 90 Tablet 0 OneTouch Verio In Vitro Strip (Glucose Blood) Use up to 4 times a day E11.9 400 Strip 3 Montelukast Sodium 10 MG Oral Tablet (Singulair) TAKE 1 TABLET BY MOUTH EVERY EVENING 90 Tablet 1 Pulmicort Flexhaler 180 MCG/ACT Inhalation Aerosol Powder Breath Activated No current facility-administered medications for this visit. Review of patient's allergies indicates: Allergen Reactions Aspirin upset stomach Morphine Makes him want to rip things apart. Past Medical History: Diagnosis Date Anxiety state 08/24/2004 Asthma, allergic Cervicalgia 08/24/2004 GERD (gastroesophageal reflux disease) Morbid obesity with BMI of 50.0-59.9, adult ([facility]) 05/18/2009 Per Obesity Taxonomy RUPINDER (obstructive sleep apnea) 05/31/2016 Osteoarthritis Type 2 diabetes mellitus without complication, without long-term current use of insulin ([facility]) 12/18/2019 Past Surgical History: Procedure Laterality Date KNEE ARTHROSCOPY/DEBRIDEMENT KNEE ARTHROSCOPY/MENISCECTOMY KNEE ARTHROSCOPY/REPAIR LIGAMENT acl,mcl Objective: The patient is a 53 year old male BP 130/84 | Pulse 79 | Temp 36.1 C (97 F) (Tympanic) | Resp 20 | Ht 1.676 m (5' 6") | Wt (!) 148.1 kg (326 lb 6.4 oz) | SpO2 95% | BMI 52.68 kg/m | BSA 2.63 m General: alert, healthy, and no distress Ears: External ears normal, Canals clear, TM's Normal Oropharynx: no exudate, no erythema, lips, buccal mucosa, and tongue normal, and mucous membranes are moist Heart: regular rate & rhythm, no murmur, and no gallops Lungs: lungs clear to auscultation Extremities: no edema, no clubbing, no cyanosis ASSESSMENT: (E11.9) Type 2 diabetes mellitus without complication, without long-term current use of insulin ([facility]) (primary encounter diagnosis) (E66.01) Morbid obesity due to excess calories ([facility]) (J45.40) Moderate persistent asthma without complication (Z12.11) Screen for colon cancer PLAN: Check basic metabolic panel A1c microalbumin MT referral check Cologuard as well Follow up in 6 month(s). Jeison Gandhi III, MD * Ami Damon, MED ASSIST - 12/18/2023 10:21 AM EDT Patient left prior to POC A1C being completed. A1C order placed with routine lab orders. documented in this encounter Nursing Notes * Ami Damon MED ASSIST - 12/18/2023 9:12 AM EDT Yogi Noyola presents for 6 month recheck. He is requesting a muscle relaxer due to body pain. He states that he is not taking any of his medications because he can't afford them. He states he has to chose between medication and eating. This morning his fasting blood sugar was 230. He declines flu, COVID, shingrix and Hep B vaccines. He also declines colonoscopy and cologuard. Medications & HM reviewed. documented in this encounter Plan of Treatment Upcoming Encounters Date Type Department Care Team (Late st Contact Info) Description 12/28/2023 10:20 AM EST Office Visit Pharmacy, [facility] [address] [facility] [place] [address] Pharmacist1, [facility] [address] [facility] [place] [address] 03/27/2024 12:40 PM EST Office Visit Family Practice [facility] [place] [address] [facility] [place] [address] Jeison Gandhi III, MD [address] [facility] [place] [id number] Scheduled Orders Name Type Priority Associated Diagnoses Orde r Schedule ALBUMIN / CREATININE RATIO, URINE Lab Routine Type 2 diabetes mellitus without complication, without long-term current use of insulin (HCC) Expected: 12/18/2023 (Approximate), Expires: 12/17/2024 COLOGUARD Lab Unrestricted Lab Screen for colon cancer Ordered: 12/18/2023 Scheduled Referrals Name Type Priority Associated Diagnoses Orde r Schedule PHARMACIST MEDS THERAPY MGMT REFERRAL OP Referral Within 10 days (routine) Type 2 diabetes mellitus without complication, without long-term current use of insulin (HCC) Ordered: 12/18/2023 Health Maintenance Due Date Last Done Comments Hepatitis B Vaccine (1 of 3 - 19+ 3-dose series) 1988 Colonoscopy 2014 Fecal Occult Blood Test 2014 Sigmoidoscopy 2014 Zoster Vaccines (1 of 2) 09/29/2019 Albumin/Creatinine Ratio 04/12/2023 023, 04/05/2021, 03/13/2020 B-12 04/12/2023 04/12/2022, 03/23, 03/13/2020 Cologuard 10/08/2023 10/07/2020, 09/20, 09/29/2020 Colorectal Cancer Screening 10/08/2023 COVID-19 Vaccine (2023- season) 2023 06/22/2020, 05/25/2020 Influenza Vaccine (FLU shot) (#1) 2023 12/08/2016, 12/08/2016, 11/30/2011, Additional history exists Diabetic Eye Exam 06/15/2024 06/16/2023, , 04/05/2021, Additional history exists Diabetic Foot Exam 06/15/2024 06/16/2023, 0 04/05/2021, 01/13/2020 HbA1c 06/17/2024 12/18/2023, 0302/2023, 12/09/2022, Additional history exists Depression Screening 12/17/2024 12/18/2023 GFR 12/17/2024 12/18/2023, 0302/2023, 04/12/2022, Additional history exists Lipid Panel 04/30/2028 05/01/2023, 02/02/2022, 12/14/2020, Additional history exists DTap/Tdap Vaccines (7 [...] Not on filedocumented as of this encounter Results * (ABNORMAL) HEMOGLOBIN A1C (12/18/2023 10:26 AM EDT) Hemoglobin A1C 7.9(H) 4.0 - 5.6 % 12/18/2023 10:48 PM EDT LAB[facility]ATORY [facility] Comment:The use of HbA1c to monitor glycemic status is based on normal hemoglobin and HbA composition. This test should not be used in patients with abnormal hemoglobin that affects the half life of the red blood cell or the in vivo glycation rates. Estimated Average Glucose 180(H) <126 mg/dL 12/18/2023 10:48 PM EDT LAB[facility]ATORY [facility] Blood Venous blood specimen / Unknown Venipuncture / Unknown 12/18/2023 10:26 AM EDT 12/18/2023 10:26 AM EDT Jeison Gandhi III, MD LAB BLOOD ORDERABLE S LABORATORY [facility] [address] [place] [address] * (ABNORMAL) BASIC METABOLIC PANEL (12/18/2023 10:26 AM EDT) BUN 16 6 - 20 mg/dL 12/18/2023 12:28 PM EDT [facility] 56-02 CREATININE 0.7 0.6 - 1.2 mg/dL 12/18/2023 12:28 PM EDT [facility] 56-02 EGFR >90 >=60 mL/min 12/18/2023 12:28 PM EDT [facility] 56- Comment:eGFR is calculated b ased on the CKD-EPI 2020 equation. SODIUM 139 135 - 146 mmol/L 12/18/2023 12:28 PM EDT [facility] 56-02 POTASSIUM 4.7 3.5 - 5.1 mmol/L 12/18/2023 12:28 PM EDT [facility] 56- CHLORIDE 100 98 - 107 mmol/L 12/18/2023 12:28 PM EDT [facility] 56 CO2 30 22 - 32 mmol/L 12/18/2023 12:28 PM EDT [facility] 56 ANION GAP 9 7 - 15 mmol/L 12/18/2023 12:28 PM EDT [facility] 56 GLUCOSE 192(H) 70 - 120 mg/dL 12/18/2023 12:28 PM EDT [facility] CALCIUM 9.6 8.4 - 10.2 mg/dL 12/18/2023 12:28 PM EDT [facility] 56 Blood Venous blood specimen / Unknown Venipuncture / Unknown 12/18/2023 10:26 AM EDT 12/18/2023 10:26 AM EDT Jeison Gandhi III, MD LAB BLOOD ORDERABLE S [facility] [address] [place] [address] documented in this encounter Visit Diagnoses Diagnosis Type 2 diabetes mellitus without complication, without long-term current use of insulin (HCC)- Primary Morbid obesity due to excess calories (HCC) Moderate persistent asthma without complication Unspecified asthma Screen for colon cancer Special screening for malignant neoplasms, colon documented in this encounter Care Teams Home Health Speech Therapist Relationship Specialty Start Date End Date Jeison Gandhi III, MD [address] [place] [address] PCP - General 12/02/04 documented as of this encounter
--- OUTSIDE RECORDS SUMMARY | 2024-04-25 10:39 | External Medical Summary | Summary of Care ---
Author Name Unknown Organization [facility] Address [address] [place] [address] Phone [phone] Care Team Providers Care Hotel Maintenance Engineer Name Role Phone Hiram ROCHE MD, Jeison Hernandez Primary Care Provider [phone] Encounter Details Date Type Department Care Team (Late st Contact Info) Description 03/12/2024 Population Health External Data Unspecified Department Allergies Active Allergy Reactions Criticality Noted Date Comments Aspirin 12/01/1999 upset stomach Morphine 04/27/2015 Makes him want to rip things apart. documented as of this encounter (statuses as of 03/12/2024) Medications OneTouch Delica Lancets 33G Twice daily [...] with breakfast and dinner 360 Tablet 3 12/28/2023 1:05 PM EST 4 Active Cyclobenzaprine HCl 10 MG [...] in the morning. 90 Tablet 3 12/28/2023 1:05 PM EST 4 Active Montelukast Sodium 10 MG [...] 3 12/28/2023 1:05 PM EST 4 Active documented as of this encounter (statuses as of 03/12/2024) Active Problems Problem Noted Date Diagnosed Date [...] as of this encounter (statuses as of 03/12/2024) Resolved Problems Problem Noted Date Diagnosed Date [...] as of this encounter (statuses as of 03/12/2024) Immunizations Name Administration Dates Next Due COVID-19 mRNA, LNP-s, No Pre serve, 2-Dose Series (Moderna) 06/22/2020,05/25/2020 Diptheria/Tetanus (Adult) 01/16/2006 H1N1 2009 Influenza, IM 02/24/2009 Pneumococcal Conjugate Vacci ne, 20-valent ([id number]) 06/16/2023 Seasonal Influenza Vac., MDV , IM, [...] in the Last Year Often true 03/01/2019 Sex and Gender Information Value Date Recorded Sex Assigned at Male 03/01/2019 1:34 PM EST Legal Sex Male 6:00 AM EST Gender Identity Male 03/01/2019 1:34 PM EST Sexual Orientation Choose not to disclose 2019 1:34 PM EST documented as of this encounter Plan of Treatment Upcoming Encounters Date Type Department Care Team (Late st Contact Info) Description 03/28/2024 5:30 PM EST Pharmacy Pharm[place] [facility] [place] [address] [place] [address] Pharmacist1, [facility] [address] [place] [address] [address] 04/04/2024 10:00 AM EST Office Visit Family Practice [facility] [place] [place] [address] [place] [address] Jeison Gandhi III, MD [address] [place] [address] Health Maintenance Due Date Last Done Comments Hepatitis B Vaccine (1 of 3 - 19+ 3-dose series) 1988 Colonoscopy 2014 Fecal Occult Blood Test 2014 Sigmoidoscopy 2014 Zoster Vaccines (1 of 2) 09/29/2019 Albumin/Creatinine Ratio 04/12/2023 023, 04/05/2021, 03/13/2020 B-12 04/12/2023 04/12/2022, 03/23, 03/13/2020 COVID-19 Vaccine ( season) 2023 06/22/2020, 05/25/2020 Influenza Vaccine (FLU shot) (#1) 2023 12/08/2016, 12/08/2016, 11/30/2011, Additional history exists Diabetic Eye Exam 06/15/2024 06/16/2023, , 04/05/2021, Additional history exists Diabetic Foot Exam 06/15/2024 06/16/2023, 0 04/05/2021, 01/13/2020 HbA1c 06/17/2024 12/18/2023, 04/20, 12/09/2022, Additional history exists Depression Screening 12/17/2024 12/18/2023 GFR 12/17/2024 12/18/2023, 04/20, 04/12/2022, Additional history exists Cologuard 01/04/2027 01/05/2024, 12/21, 09/29/2020, Additional history exists Colorectal Cancer Screening 01/04/2027 Lipid Panel 04/30/2028 05/01/2023, 03/24, 12/14/2020, Additional [...] filedocumented as of this encounter Care Teams Hotel Maintenance Engineer Relationship Specialty Start Date End Date Hiram III, Jeison Hernandez MD [address] [facility] [place] [address] PCP - General 12/02/04 documented as of this encounter
--- OUTSIDE RECORDS SUMMARY | 2024-04-25 10:39 | External Medical Summary | Summary of Care ---
Author Name Unknown Organization [facility] Address [address] [place] [address] Phone [phone] Care Team Providers Care Ore Roaster Name Role Phone Hiram ROCHE MD, Jeison Hernandez Primary Care Provider [phone] Reason for Visit * Reason Onset Date Comments Returning Call 04/05/2024 Encounter Details Date Type Department Care Team (Late st Contact Info) Description 04/05/2024 Telephone Pharmacy, [facility] [place] [address] [place] [address] Pharmacist1, [facility] [address] [place] [address] Returning Call Allergies Active Allergy Reactions Criticality Noted Date Comments Aspirin 12/01/1999 upset stomach Morphine 04/27/2015 Makes him want to rip things apart. documented as of this encounter (statuses as of 04/05/2024) Medications OneTouch Delica Lancets 33G Twice daily [...] mouth in the morning. 90 Tablet 11 5 Active glipiZIDE ER 5 MG Oral Tablet Extended Release 24 Hour (glipiZIDE XL)Indications:Ty pe 2 diabetes mellitus with hemoglobin A1c goal of less than 7.0% ([facility]) Take 1 Tablet by mouth in the morning. 90 Tablet 3 5 Active documented as of this encounter (statuses as of 04/05/2024) Active Problems Problem Noted Date Diagnosed Date [...] as of this encounter (statuses as of 04/05/2024) Resolved Problems Problem Noted Date Diagnosed Date [...] as of this encounter (statuses as of 04/05/2024) Immunizations Name Administration Dates Next Due COVID-19 mRNA, LNP-s, No Pre serve, 2-Dose Series (Moderna) 06/22/2020,05/25/2020 Diptheria/Tetanus (Adult) 01/16/2006 H1N1 2009 Influenza, IM 02/24/2009 Pneumococcal Conjugate Vacci ne, 20-valent ([id number]) 06/16/2023 Seasonal Influenza Vac., MDV , IM, [...] No 04/04/2024 Does the household have a [facility] source of income? (Household - for ages [...] encounter Miscellaneous Notes * Telephone Encounter - Krystian Bentley RPh - 04/05/2024 3:30 PM EST See MT note fort documentation Krystian Yang RPh, [facility] Clinical Pharmacist [facility] 04/05/2024, 3:30 PM * Telephone Encounter - Erika Alonso LPN - 04/05/2024 3:04 PM EST ----- Message from Jeison Gandhi MD sent at 04/05/2024 7:54 AM EST ----- Call please B12 normal A1c higher would restart Jardiance(empagliflozin) what he see a dietitian try and be more aggressive on dietary control increase exercise as able * Telephone Encounter - Ivett Carter CPhT - 04/05/2024 3:00 PM EST Caller's name: Yogi De Leon call back number(OFFICE NUMBER FOR ): [phone] Reason for call: Patient returning call to [facility] regarding message left today about diabetic medication. Thank you, Ivett Carter Dry Cell Assembly Machine Tender [facility] 04/05/2024,3:00 PM documented in this encounter Plan of Treatment Upcoming Encounters Date Type Department Care Team (Late st Contact Info) Description 04/18/2024 10:30 AM EST Nurse Only Ancillary [facility] [place] [address] [place] [address] [place], Nurse [facility] [address] [place] [address] 04/19/2024 8:10 AM EST Telemedicine Pharmacy, [facility] [place] [address] [place] [address] Pharmacist1, [facility] [address] [place] [address] 10/07/2024 10:00 AM EDT Office Visit Family Practice [facility] [place] [address] [place] [address] [address] [place] III, Jeison Hernandez MD 200 [facility] [place] [address] Health Maintenance Due Date Last Done Comments Hepatitis B Vaccine (1 of 3 - 19+ 3-dose series) 1988 Colonoscopy 2014 Fecal Occult Blood Test 2014 Sigmoidoscopy 2014 Zoster Vaccines (1 of 2) 09/29/2019 COVID-19 Vaccine (3 - season) 2023 06/22/2020, 05/25/2020 Influenza Vaccine (FLU [...] filedocumented as of this encounter Care Teams Ore Roaster Relationship Specialty Start Date End Date [place] MELCHOR, Jeison Hernandez MD 200 [place] [address] PCP - General 12/02/04 documented as of this encounter
--- OUTSIDE RECORDS SUMMARY | 2024-04-25 10:39 | External Medical Summary | Summary of Care ---
Author Name Unknown Organization [facility] Address [address] [place] [address] Phone [phone] Care Team Providers Care Mobile Health Vehicle Operator Name Role Phone Hiram ROCHE MD, Jeison Hernandez Primary Care Provider [phone] Encounter Details Date Type Department Care Team (Late st Contact Info) Description 02/25/2024 Result Scan Unspecified Department <No scans attached> Allergies Active Allergy Reactions Criticality Noted Date Comments Aspirin 12/01/1999 upset stomach Morphine 04/27/2015 Makes him want to rip things apart. documented as of this encounter (statuses as of 02/27/2024) Medications OneTouch Delica Lancets 33G Twice daily [...] as of this encounter (statuses as of 02/27/2024) Active Problems Problem Noted Date Diagnosed Date [...] as of this encounter (statuses as of 02/27/2024) Resolved Problems Problem Noted Date Diagnosed Date [...] as of this encounter (statuses as of 02/27/2024) Immunizations Name Administration Dates Next Due COVID-19 mRNA, LNP-s, No Pre serve, 2-Dose Series (Moderna) 06/22/2020,05/25/2020 Diptheria/Tetanus (Adult) 01/16/2006 H1N1 2009 Influenza, IM 02/24/2009 Pneumococcal Conjugate Vacci ne, 20-valent ([id number]) 06/16/2023 Seasonal Influenza Vac., MDV , IM, [...] 12:40 PM EST Office Visit Family Practice [facility] [address] [place] [address] Jeison Gandhi III, MD [address] [place] [address] 03/28/2024 5:30 PM EST Pharmacy Pharmacy, [facility] [address] [place] [address] Pharmacist1, [facility] [address] [place] [address] [address] Health Maintenance Due Date Last Done Comments [...] Not on filedocumented as of this encounter Procedures Procedure Name Priority Date/Time Associated Diagnosis Comments RADIOLOGY SCANNED RESULT 02/25/2024 documented in this encounter Results * RADIOLOGY SCANNED RESULT (02/25/2024) 02/25/2024 us No Physician Data Unknown DIAGNOSTIC RADIOLOGY S ERVICES Final Result documented in this encounter Care Teams Mobile Health Vehicle Operator Relationship Specialty Start Date End Date Hiram ROCHE, Jeison Hernandez MD [address] [place] [address] PCP - General 12/02/04 documented as of this encounter
--- OUTSIDE RECORDS SUMMARY | 2024-04-25 10:39 | External Medical Summary | Summary of Care ---
Author Name Unknown Organization [facility] Address [address] [place] [address] Phone [phone] Care Team Providers Care Clinical Therapist Name Role Phone Hiram ROCHE MD, Jeison Hernandez Primary Care Provider [phone] Reason for Visit * Reason Comments Diabetes Follow-Up Dosage Adjustment Via Phone (anticoag Cl inic) Encounter Details Date Type Department Care Team (Late st Contact Info) Description 04/05/2024 6:00 AM [facility] Pharmacy Pharmacy, [facility] [address] [place] [address] Pharmacist1, [facility] 200 [facility] [place] [address] Type 2 diabetes mellitus with hemoglobin A1c goal of less than 7.0% ([facility])* Allergies Active Allergy Reactions Criticality Noted Date [...] long-term current use of insulin ([facility]) Use up to 4 times a day E11.9 400 Strip 3 4 Active metFORMIN HCl 500 MG Oral Tablet (Glucophage)Indic ations:Type 2 diabetes mellitus without complication, without long-term current use of insulin ([facility]) take 1 tablet by mouth daily with [...] goal of less than 7.0% ([facility]) Take 1 Tablet by mouth in the morning. 90 Tablet 3 Active documented as of this encounter (statuses [...] IM 02/24/2009 Pneumococcal Conjugate Vacci ne, 20-valent ([id number]) 06/16/2023 Seasonal Influenza Vac., MDV , IM, [...] 04/04/2024 Does the household have a re lar source of income? (Household - for ages [...] AM EST documented as of this encounter Progress Notes * Krystian Bentley RP - 04/05/2024 12:01 PM EST Patient Phone Numbers Left message at 12:54 PM with lab results. I asked the patient to call the clinic to discuss addinganother DM med due to elevated A1C. Spoke to the patient at 3:29 PM. Component Latest Ref Rng 04/04/2024 Albumin, Random Urine mg/dL 7.00 Creatinine, Random Urine mg/dL 91 Albumin / Creatinine Ratio, Urine <30 mg/g Creat 77 (H) Hemoglobin A1C 4.0 - 5.6 % 8.6 (H) Estimated Average Glucose <126 mg/dL 200 (H) Vitamin B12 232 - 1,245 pg/mL 816 Goal <7 Diabetic Medications: Metformin 500mg 2 tablets twice daily START: Glipizide XL 5mg daily Finish: Jardiance 25mg daily supply Krystian Yang RPh, [facility] Clinical Pharmacist Medication Therapy Management Clinic 04/05/2024, 12:44 PM documented in this encounter Plan of Treatment Upcoming Encounters Date Type Department Care Team (Late st Contact Info) Description 04/18/2024 10:30 AM EST Nurse Only Ancillary [facility] [place] 200 [facility] [place] [address] [place], Nurse Fam Prac [address] [place] [address] 04/19/2024 8:10 AM EST Telemedicine Pharmacy, [facility] [place] [address] [facility] [place] [address] Pharmacist1, [facility] 200 [facility] [place] [address] 10/07/2024 10:00 AM EDT Office Visit Family Practice [facility] [place] [address] [facility] [place] [address] Jeison Gandhi III, MD 200 [facility] [place] [address] Health Maintenance Due Date Last Done Comments Hepatitis B Vaccine (1 of 3 - 19+ 3-dose series) 1988 Colonoscopy 2014 Fecal Occult Blood Test 2014 Sigmoidoscopy 2014 Zoster Vaccines (1 of 2) 09/29/2019 COVID-19 Vaccine ( - 2023- season) 2023 06/22/2020, 05/25/2020 Influenza Vaccine (FLU [...] Primary documented in this encounter Care Teams Clinical Therapist Relationship Specialty Start Date End Date Hiram ROCHE, Jeison Hernandez MD [address] [place] [address] PCP - General 12/02/04 documented as of this encounter
--- OUTSIDE RECORDS SUMMARY | 2024-04-25 10:39 | External Medical Summary | Summary of Care ---
Author Name Unknown Organization [facility] Address [address] [place] [address] Phone [phone] Care Team Providers Care Shuttle Filler Name Role Phone Hiram ROCHE MD, Jeison Hernandez Primary Care Provider [phone] Reason for Visit * Reason Comments Outpatient Testing Encounter Details Date Type Department Care Team (Late st Contact Info) Description 04/04/2024 11:20 AM EST Laboratory Laboratory [facility] [address] [place] [phone] [facility] [address] [place] [address] Type 2 diabetes mellitus without complication, without long-term current use of insulin ([facility]); Type 2 diabetes mellitus with diabetic peripheral angiopathy without gangrene, unspecified whether usp insulin use ([facility]) Allergies Active Allergy Reactions Criticality Noted Date Comments Aspirin 12/01/1999 upset stomach Morphine 04/27/2015 Makes him want to rip things apart. documented as of this encounter (statuses as of 04/04/2024) Medications OneTouch Delica Lancets 33G Twice daily [...] the morning. 90 Tablet 11 5 Active documented as of this encounter (statuses as of 04/04/2024) Active Problems Problem Noted Date Diagnosed Date [...] as of this encounter (statuses as of 04/04/2024) Resolved Problems Problem Noted Date Diagnosed Date [...] as of this encounter (statuses as of 04/04/2024) Immunizations Name Administration Dates Next Due COVID-19 mRNA, LNP-s, No Pre serve, 2-Dose Series (Moderna) 06/22/2020,05/25/2020 DTWP - Dipth/Tet/Whole Cell Pertussis ,03/10/1970,02/03/1970,12/30 Diptheria/Tetanus (Adult) 01/16/2006 H1N1 2009 Influenza, IM 02/24/2009 Measles Vaccine 02/26/1994 OPV - Polio Virus Vaccine (Oral) 978,05/28/1974,03/10/1970,12/30 Pneumococcal Conjugate Vacci ne, 20-valent ([id number]) 06/16/2023 Pneumococcal Polysaccharide PPV23 (Pneumovax) 08/27/2002 Rubella [...] st Contact Info) Description 04/05/2024 6:00 AM EST Pharmacy Pharmacy, [facility] [place] [address] [place] [address] Pharmacist1, [facility] [address] [facility] [address] [place], [place] [address] 04/18/2024 10:30 AM EST Nurse Only Ancillary [facility] [place] 200 [facility] [place] [address] [place], Nurse Fam Prac [facility] 200 [facility] [place] [address] 10/07/2024 10:00 AM EDT Office Visit Family Practice [facility] [place] 200 [facility] [place] [address] MinerJeison phelps III, MD 200 [facility] [place] [address] Pending Results Name Type Priority Associated Diagnoses Date /Time HEMOGLOBIN A1C Lab Routine Type 2 diabetes mellitus without complication, without long-term current use of insulin ([facility]) 04/04/2024 11:17 AM EST VITAMIN B12 Lab Routine Type 2 diabetes mellitus without complication, without long-term current use of insulin ([facility]) 04/04/2024 11:17 AM EST ALBUMIN / CREATININE RATIO, URINE Lab Routine Type 2 diabetes mellitus without complication, without long-term current use of insulin ([facility]) 04/04/2024 11:31 AM EST Health Maintenance Due Date Last Done Comments [...] 12/18/2023, 04/20, 04/12/2022, Additional history exists Cologuard 01/10/2027 01/11/2024, 12/21, [...] without long-term current use of insulin (HCC) Type 2 diabetes mellitus with diabetic peripheral angiopathy without gangrene, unspecified whether dedicated intermodal truck driver insulin use (HCC) documented in this encounter Care Teams Shuttle Filler Relationship Specialty Start Date End Date Jeison Gandhi III, MD [address] [place] [address] PCP - General 12/02/04 documented as of this encounter
--- OUTSIDE RECORDS SUMMARY | 2024-04-25 10:39 | External Medical Summary | Summary of Care ---
Author Name Unknown Organization [facility] Address [address] [place] [address] Phone [phone] Care Team Providers Care Terrazzo Laborer Name Role Phone Hiram ROCHE MD, Jeison Hernandez Primary Care Provider [phone] Reason for Visit * Reason Comments Diabetes [...] (HCC) Jeison Gandhi III, MD [address] [place], [place] [address] Referral ID Status Reason Start Date Expiration Date Visits Requested Visits Authorized [id number] Authorized Specialty Services Required 4 06/15/2024 99 99 Encounter Details Date Type Department Care Team (Late st Contact Info) Description 12/28/2023 10:20 AM EST Office Visit Pharmacy, [facility] [address] [place] [address] Pharmacist1, [facility] [address] [place] [address] Type 2 diabetes mellitus with hemoglobin A1c goal of less than 7.0% ([facility])*; Other allergic rhinitis; Type 2 diabetes mellitus [...] IM 02/24/2009 Pneumococcal Conjugate Vacci ne, 20-valent ([id number]) 06/16/2023 Seasonal Influenza Vac., MDV , IM, [...] of this encounter Progress Notes * Krystian Bentley, [facility] - 12/28/2023 10:00 AM EST Medication Therapy [...] Morbid obesity with BMI of 50.0-59.9, adult ([facility]) 05/18/2009 Per Obesity Taxonomy RUPINDER (obstructive sleep apnea) 05/31/2016 Osteoarthritis Type 2 diabetes mellitus without complication, without long-term current use of insulin ([facility]) 12/18/2019 Diagnosis: Type 2 DIABETES: Current diabetic [...] input(s): "LDLDIRECT", "LDLCALC", "LDLCHOL" in the last 18448 hours. HEALTH MAINTENANCE REVIEW: Health Maintenance Due Topic Date Due Hepatitis B Vaccine (1 of 3 - 19+ 3-dose series) Never done Zoster Vaccines (1 of 2) Never done Albumin/Creatinine Ratio 04/12/2023 B-12 04/12/2023 Colorectal Cancer Screening 10/08/2023 Influenza Vaccine (FLU shot) (1) 10/22/2023 COVID-19 Vaccine (2023- season) 2023 ASSESSMENT & PLAN: ICD-10-CM 1. [...] MEDICATION CHANGES: yes, see below; preferred pharmacy: [email or web address] Diabetic Medications: START: Metformin 500mg [...] Krystian Yang RPh, [facility] Clinical Pharmacist - Station Chief Medication Therapy Management [facility] 12/28/2023, 10:01 AM documented in this encounter Plan of Treatment Upcoming Encounters Date Type Department Care Team (Late st Contact Info) Description 03/27/2024 12:40 PM EST Office Visit Family Practice [facility] [address] [facility] [place] [address] Jeison Gandhi III, MD [address] [facility] [place] [address] 03/28/2024 5:30 PM EST Pharmacy Pharmacy, [facility] [place] [address] [facility] [place] [address] Pharmacist1, [facility] [address] [place] [address] [address] Health Maintenance Due Date Last Done Comments [...] asthma documented in this encounter Care Teams Terrazzo Laborer Relationship Specialty Start Date End Date Jeison Gandhi III, MD [address] [place] [address], [place] [address] PCP - General 12/02/04 documented as of this encounter
--- OUTSIDE RECORDS SUMMARY | 2024-04-25 10:39 | External Medical Summary ---
Author Name Unknown Address Unknown Organization [id number]:LABORATORY [facility] - [address] [place] [address] Laboratory Report Ordering Provider Test Date Status JORGE COVARRUBIAS III 04/04/2024 11:17:07 Final Observation Date Value Abnormality Reference (Units ) Status Vitamin B12 04/04/2024 11:17:07 [id number] (pg/mL) Final Performing Location LABORATORY [facility] - [address] [place] [address]
--- OUTSIDE RECORDS SUMMARY | 2024-04-25 10:39 | External Medical Summary ---
Author Name Unknown Address Unknown Organization [id number]:[facility] [place] [address] [facility] [address] Laboratory Report Ordering Provider Test Date Status JORGE COVARRUBIAS III 04/04/2024 11:17:07 Final Observation Date Value Abnormality Reference (Units ) Status HbA1C 04/04/2024 11:17:07 8.6 Above high normal 4. 0-5.6 (%) Final The use of HbA1c to monitor glycemic status is based on normal hemoglobin and HbA composition. This test should not be used in patients with abnormal hemoglobin that affects the half life of the red blood cell or the in vivo glycation rates. Glucose, estimated average 04/04/2024 11:17:07 200 Above high normal <126 (mg/dL) Reymundo cardona Performing Location [facility] [place] [address] [facility] [address]
--- OUTSIDE RECORDS SUMMARY | 2024-04-25 10:39 | External Medical Summary | Summary of Care ---
Author Name Unknown Organization [facility] Address [address] [place] [address] Phone [phone] Care Team Providers Care Brewery Worker Name Role Phone Hiram ROCHE MD, Jeison Hernandez Primary Care Provider [phone] Reason for Visit * Reason Comments Re-Check Encounter Details Date Type Department Care Team (Late st Contact Info) Description 04/04/2024 10:00 AM EST Office Visit Family Practice [facility] [place] [address] [facility] [place] [address] Jeison Gandhi III, MD 200 [place] [address] Open wound of right lower leg, initial encounter*; Type 2 diabetes mellitus with diabetic peripheral angiopathy without gangrene, unspecified whether nursing home insulin use (HCC); Moderate persistent asthma without complication; Food insecurity; Need for shingles vaccine Allergies Active Allergy Reactions Criticality Noted Date Comments Aspirin 12/01/1999 upset stomach Morphine 04/27/2015 Makes him want to rip things apart. documented as of this encounter (statuses as of 04/15/2024) Medications OneTouch Delica Lancets 33G Twice daily [...] 90 Tablet 11 04/09/2024 1:00 PM EST 02/13/202 5 Active documented as of this encounter (statuses as of 04/15/2024) Active Problems Problem Noted Date Diagnosed Date [...] as of this encounter (statuses as of 04/15/2024) Resolved Problems Problem Noted Date Diagnosed Date [...] as of this encounter (statuses as of 04/15/2024) Immunizations Name Administration Dates Next Due COVID-19 mRNA, LNP-s, No Pre serve, 2-Dose Series (Moderna) 06/22/2020,05/25/2020 Diptheria/Tetanus (Adult) 01/16/2006 H1N1 2009 Influenza, IM 02/24/2009 Pneumococcal Conjugate Vacci ne, 20-valent ([id number]) 06/16/2023 Seasonal Influenza Vac., MDV , IM, [...] Sign Reading Time Taken Comments Blood Pressure 150/71 04/04/2024 10:02 AM EST Pulse 85 04/04/2024 10:02 AM EST Temperature 36.4 C (97.5 F) 04/04/2024 10:[address] Respiratory Rate 16 04/04/2024 10:02 AM EST Oxygen Saturation - - Inhaled Oxygen Concentration - - Weight 152 kg (335 lb) 04/04/2024 10:02 AM EST Height - - Body Mass Index 54.07 12/18/2023 9:18 AM EDT documented in this encounter Progress Notes * Jeison Gandhi III, MD - 04/04/2024 10:30 AM EST Subjective: Yogi Noyola is a 53 year old male. Chief Complaint Patient presents with Re-Check HPI: Follow up diabetes mellitus obesity reports had the flu a month ago still has a little bit of cough has been using his nebulizer got weak killer on his right goodwin this summer irritated area has opened in the past week no associated fever or chills no exertional chest pain tolerating metformin if further medications needed would prefer not to have injections PHM: Patient Active Problem List Diagnosis BACKACHE NOS Cervicalgia Anxiety state Other allergic rhinitis Moderate persistent asthma without complication Unresponsive episode RUPINDER (obstructive sleep apnea) Morbid obesity due to excess calories ([facility]) Mixed rhinitis Monocytosis Food insecurity Body mass index (BMI) of 50.0 to 59.9 in adult ([facility]) Type 2 diabetes mellitus with hemoglobin A1c goal of less than 7.0% ([facility]) Type 2 diabetes mellitus with diabetic peripheral angiopathy without gangrene ([facility]) Current Outpatient Medications Medication Sig Dispense Refill Wiren Board Lancets 33G Twice daily 100 Each 3 [employer] w/Device Kit Use up to 4 times a day E11.9 1 Kit 0 Ipratropium-Albuterol 0.5-2.5 (3) MG/3ML Inhalation Solution (Duoneb) USE 1 AMPULE IN NEBULIZER EVERY 4 HOURS NEEDED FOR SHORTNESS OF BREATH OR WHEEZING 90 mL 1 [employer] In Vitro Strip (Glucose Blood) Use up to 4 times a day E11.9 400 Strip 3 metFORMIN HCl 500 MG Oral Tablet (Glucophage) take 1 tablet by mouth daily with breakfast for 2 weeks, then 2 tablets daily for 2 weeks, then 2 tablets twice daily with breakfast and dinner 360 Tablet 3 Cyclobenzaprine HCl 10 MG Oral Tablet (Flexeril) Take 1 Tablet by mouth 2 times a day as needed forMuscle spasms. 10 Tablet 2 Mometasone Furo-Formoterol Fum 200-5 MCG/ACT Inhalation Aerosol (Dulera) Inhale 2 Puffs by mouth inthe morning and 2 Puffs before bedtime. 39 g 3 Atorvastatin Calcium 10 MG Oral Tablet (Lipitor) Take 1 Tablet by mouth in the morning. 90 Tablet 3 Montelukast Sodium 10 MG Oral Tablet (Singulair) TAKE 1 TABLET BY MOUTH EVERY EVENING 90 Tablet 3 Albuterol Sulfate HFA 108 (90 Base) MCG/ACT Inhalation Aerosol Solution Inhale 2 Puffs by mouth every 4 hours as needed for Cough, Shortness of Breath or Wheezing. 18 g 3 Lisinopril 10 MG Oral Tablet (Prinivil) Take 1 Tablet by mouth in the morning. 90 Tablet 11 No current facility-administered medications for this visit. Past Medical History: Diagnosis Date Anxiety state 08/24/2004 Asthma, allergic Cervicalgia 08/24/2004 GERD (gastroesophageal reflux disease) Morbid obesity with BMI of 50.0-59.9, adult ([facility]) 05/18/2009 Per Obesity Taxonomy RUPINDER (obstructive sleep apnea) 05/31/2016 Osteoarthritis Type 2 diabetes mellitus without complication, without long-term current use of insulin ([facility]) 12/18/2019 Past Surgical History: Procedure Laterality Date KNEE ARTHROSCOPY/DEBRIDEMENT KNEE ARTHROSCOPY/MENISCECTOMY KNEE ARTHROSCOPY/REPAIR LIGAMENT acl,mcl Review of patient's allergies indicates: Allergen Reactions Aspirin upset stomach Morphine Makes him want to rip things apart. Objective: BP 150/71 | Pulse 85 | Temp 97.5 F (36.4 C) | Resp 16 | Wt (!) 335 lb (152 kg) | BMI 54.07 kg/m | BSA 2.66 m Physical Exam: General: alert, healthy, and no distress Eye Exam: PERRLA, extraocular movements intact, conjunctiva are pink and non- injected, sclera clear Oropharynx: no exudate, no erythema, lips, buccal mucosa, and tongue normal, and mucous membranes are moist Heart: regular rate & rhythm, no murmur, and no gallops Lungs: lungs clear to auscultation Extremities: no edema, no clubbing, no cyanosis Open area right goodwin no pus he drainage ASSESSMENT/PLAN: Open wound of right lower leg, initial encounter (Primary) - DUODERM - AT VISIT Type 2 diabetes mellitus with diabetic peripheral angiopathy without gangrene, unspecified whether terminologist insulin use ([facility]) - HEMOGLOBIN A1C; Future; Expected date: 04/04/2024 - VITAMIN B12; Future; Expected date: 04/04/2024 - ALBUMIN / CREATININE RATIO, URINE; Future; Expected date: 04/04/2024 Moderate persistent asthma without complication Food insecurity Other orders - Lisinopril 10 MG Oral Tablet (Prinivil); Take 1 Tablet by mouth in the morning. Wound cleaned DuoDerm applied replace weekly keep in touch Follow Up: Return in about 6 months (around 10/02/2024), or bp nurse 2 weeks. Jeison Gandhi III, MD * Oly Mccallmu RN - 04/04/2024 10:01 AM EST Recheck. Had 3 or 4 weeks ago got the flu. Still has cough. Pt thinks metformin is not working, but pt was sick and he had taken prednisone. Has had a wound on right leg since this summer. documented in this encounter Plan of Treatment Upcoming Encounters Date Type Department Care Team (Late st Contact Info) Description 04/18/2024 10:30 AM EST Nurse Only Ancillary [facility] [place] 200 [facility] [place] [id number] [place], Nurse Fam Prac [facility] 200 [facility] [place] [address] 04/19/2024 8:10 AM EST Telemedicine Pharmacy, [facility] [place] 200 [facility] [place] [address] Pharmacist1, [facility] 200 [facility] [place] [address] 10/07/2024 10:00 AM EDT Office Visit Family Practice [facility] [place] [address] [facility] [place] [address] Jeison Gandhi III, MD 200 [facility] [place] [address] Health Maintenance Due Date Last Done Comments [...] as of this encounter Visit Diagnoses Diagnosis Open wound of right lower leg, initial encounter- Primary Type 2 diabetes mellitus with diabetic peripheral angiopathy without gangrene, unspecified whether terminologist insulin use (HCC) Moderate persistent asthma without complication Unspecified asthma Food insecurity Need for shingles vaccine Need for prophylactic vaccination and inoculation against other viral diseases documented in this encounter Care Teams Brewery Worker Relationship Specialty Start Date End Date Jeison Gandhi III, MD 200 [facility] [place] [address] PCP - General 12/02/04 documented as of this encounter"
--- OUTSIDE RECORDS SUMMARY | 2024-04-25 10:39 | External Medical Summary | Summary of Care ---
Author Name Unknown Organization [facility] Address [address] [place] [address] Phone [phone] Care Team Providers Care Career Information Specialist Name Role Phone Hiram ROCHE MD, Jeison Hernandez Primary Care Provider [phone] Reason for Visit * Reason Comments Outpatient Testing Encounter Details Date Type Department Care Team (Late st Contact Info) Description 04/04/2024 11:20 AM EST Laboratory Laboratory [facility] [address] [place] [id number] [facility] [address] [place] [address] Type 2 diabetes mellitus without complication, without long-term current use of insulin ([facility]); Type 2 diabetes mellitus with diabetic peripheral angiopathy without gangrene, unspecified whether shelter insulin use ([facility]) Allergies Active Allergy Reactions Criticality [...] (Oral) 978,05/28/1974,03/10/1970,12/30 Pneumococcal Conjugate Vacci ne, 20-valent ([id number]) 06/16/2023 Pneumococcal Polysaccharide PPV23 (Pneumovax) 08/27/2002 Rubella [...] 6:00 AM EST Pharmacy Pharmacy, [facility] [place] [address] [place] [address] Pharmacist1, [facility] [address] [facility] [address] [place] [address] 04/18/2024 10:30 AM EST Nurse Only Ancillary [facility] [place] 200 [facility] [place] [address] [place], Nurse Fam Prac [facility] 200 [facility] [place] [address] 10/07/2024 10:00 AM EDT Office Visit Family Practice [facility] [place] 200 [facility] [place] [address] BureauJeison phelps III, MD 200 [facility] [place] [address] Pending Results Name Type Priority Associated Diagnoses Date /Time HEMOGLOBIN A1C Lab Routine Type 2 diabetes mellitus without complication, without long-term current use of insulin ([facility]) 04/04/2024 11:17 AM EST VITAMIN B12 Lab Routine Type 2 diabetes mellitus without complication, without long-term current use of insulin ([facility]) 04/04/2024 11:17 AM EST ALBUMIN / CREATININE RATIO, URINE Lab Routine Type 2 diabetes mellitus without complication, without long-term current use of insulin ([facility]) 04/04/2024 11:31 AM EST Health [...] diabetic peripheral angiopathy without gangrene, unspecified whether terminal operator insulin use (HCC) documented in this encounter Care Teams Career Information Specialist Relationship Specialty Start Date End Date Jeison Gandhi III, MD [address] [place] [address] PCP - General 12/02/04 documented as of this encounter
--- OUTSIDE RECORDS SUMMARY | 2024-04-25 10:39 | External Medical Summary ---
Author Name Unknown Address Unknown Organization K01:LABORATORY [facility] - [address] [place] [address] Laboratory Report Ordering Provider Test Date Status EJ ELLISCK 04/04/2024 11:31:02 Final Normal: <30 mg/g creatinine< br/>High: 30-300 mg/g creatinine
Very High: >300 mg/g creatinine
Nephrotic: >2200 mg/g creatinine Observation Date Value Abnormality Reference (Units ) Status Albumin, Urine 04/04/2024 11:31:02 7.00 (mg/dL) Final Creatinine, Urine 04/04/2024 11:31:02 91 (mg/dL) Final Albumin/Creatinine [Mass Ratio] in Urine 04/04/2024 11:31:02 77 Above high normal <30 (mg/g Creat) Final Performing Location LAB[facility]ATORY [facility] - [address] [facility] [address]
--- OUTSIDE RECORDS SUMMARY | 2024-04-25 10:40 | External Medical Summary | Summary of Care ---
Author Name Unknown Organization [facility] Address [address] [place] [address] Phone [phone] Care Team Providers Care Blast Furnace Checker Name Role Phone Hiram ROCHE MD, Marci Hernandez Primary Care Provider [phone] Reason for Visit * Reason Comments Outpatient Testing Encounter Details Date Type Department Care Team (Late st Contact Info) Description 12/18/2023 10:30 AM EDT Laboratory Laboratory [facility] [address] [place] [phone] [place], Lab [address] [place] [address] Type 2 diabetes mellitus without complication, without long-term current use of insulin ([facility]) Allergies Active Allergy Reactions Criticality Noted Date Comments Aspirin 12/01/1999 upset stomach Morphine 04/27/2015 Makes him want to rip things apart. documented as of this encounter (statuses as of 12/19/2023) Medications Medication Sig Dispensed Refills Start Date End Date Status OneTouch Delica Lancets 33G Twice daily 100 Each 3 12/31/2019 Active OneTouch Verio w/Device Kit Use up to 4 times a day E11.9 1 Kit 12/31/2019 Active Ipratropium-Albutero l 0.5-2.5 (3) MG/3ML Inhalation Solution (Duoneb)Indications: Exacerbation of persistent asthma, unspecified asthma severity USE [...] Active OneTouch [employer] In Vitro Strip (Glucose Blood)Indications:Ty pe 2 diabetes mellitus without complication, without long-term current use of insulin (HCC) Use up to 4 times a day E11.9 400 Strip 3 06/16/2023 Active Montelukast Sodium 10 MG Oral Tablet (Singulair)Indicatio ns:Other allergic rhinitis TAKE 1 TABLET BY MOUTH EVERY EVENING 90 Tablet 1 08/23/2023 Active Pulmicort Flexhaler 180 MCG/ACT Inhalation Aerosol Powder Breath Activated 09/17/2023 Active metFORMIN HCl 500 MG Oral Tablet (Glucophage)Indicati ons:Type 2 diabetes mellitus without complication, without long-term [...] Muscle spasms. 10 Tablet 2 12/18/2023 Active documented as of this encounter (statuses as of 12/19/2023) Active Problems Problem Noted Date Diagnosed Date [...] as of this encounter (statuses as of 12/19/2023) Resolved Problems Problem Noted Date Diagnosed Date [...] as of this encounter (statuses as of 12/19/2023) Immunizations Name Administration Dates Next Due COVID-19 mRNA, LNP-s, No Pre serve, 2-Dose Series (Moderna) 06/22/2020,05/25/2020 DTWP - Dipth/Tet/Whole Cell Pertussis ,03/10/1970,02/03/1970,12/30 Diptheria/Tetanus (Adult) 01/16/2006 H1N1 2009 Influenza, IM 02/24/2009 Measles Vaccine 02/26/1994 OPV - Polio Virus Vaccine (Oral) 978,05/28/1974,03/10/1970,12/30 Pneumococcal Conjugate Vacci ne, 20-valent ([id number]) 06/16/2023 Pneumococcal Polysaccharide PPV23 (Pneumovax) 08/27/2002 Rubella [...] as of this encounter Progress Notes * Marci Patel III, MD - 12/19/2023 12:16 PM EDT Subjective: Yogi Noyola is a 53 year old male. Chief Complaint Patient presents with Outpatient Testing HPI: Follow up diabetes mellitus asthma has been having financial difficulties has not been able toafford his diabetic medicines has stopped would like Flexeril to have on hand when he gets muscle spasms uses albuterol as rescue denies chest pain no bleeding urine or bowels no swelling of his ankles PMH: Patient Active Problem List Diagnosis BACKACHE NOS Cervicalgia Anxiety state Other allergic rhinitis ADVANCE DIRECTIVE INFORMATION Moderate persistent asthma without complication Unresponsive episode RUPINDER (obstructive sleep apnea) Morbid obesity due to excess calories ([facility]) Type 2 diabetes mellitus without complication, without long-term current use of insulin ([facility]) Mixed rhinitis Monocytosis Food insecurity Body mass index (BMI) of 50.0 to 59.9 in adult ([facility]) Current Outpatient Medications Medication Sig Dispense Refill [employer] Lancets 33G Twice daily 100 Each 3 [employer] w/Device Kit Use up to 4 times [...] BY MOUTH EVERY MORNING 90 Tablet 0 [employer] Verio In Vitro Strip (Glucose Blood) Use up to 4 times a day E11.9 400 Strip 3 Montelukast Sodium 10 MG Oral Tablet (Singulair) TAKE 1 TABLET BY MOUTH EVERY EVENING 90 Tablet 1 Pulmicort Flexhaler 180 MCG/ACT Inhalation Aerosol Powder Breath Activated metFORMIN HCl 500 MG Oral Tablet (Glucophage) take 1 tablet by mouth daily with breakfast for 2 weeks, then 2 tablets daily for 2 weeks, then 2 tablets twice daily with breakfast and dinner 360 Tablet 3 Cyclobenzaprine HCl 10 MG Oral Tablet (Flexeril) Take 1 Tablet by mouth 2 times a day as needed forMuscle spasms. 10 Tablet 2 No current facility-administered medications for this visit. Review of patient's allergies indicates: Allergen Reactions Aspirin upset stomach Morphine Makes him want to rip things apart. Past Medical History: Diagnosis Date Anxiety state 08/24/2004 Asthma, allergic Cervicalgia 08/24/2004 GERD (gastroesophageal reflux disease) Morbid obesity with BMI of 50.0-59.9, adult ([facility]) 05/18/2009 Per Obesity Taxonomy RUPINDER (obstructive sleep apnea) 05/31/2016 Osteoarthritis Type 2 diabetes mellitus without complication, without long-term current use of insulin ([facility]) 12/18/2019 Past Surgical History: Procedure Laterality Date KNEE ARTHROSCOPY/DEBRIDEMENT KNEE ARTHROSCOPY/MENISCECTOMY KNEE ARTHROSCOPY/REPAIR LIGAMENT acl,mcl Objective: The patient is a 53 year old male There were no vitals taken for this visit. General: alert, healthy, and no distress Eye [...] complication, without long-term current use of insulin ([facility]) PLAN: Agrees to restart metformin check basic metabolic panel A1c get MTM appointment Follow up in 3 month(s). Marci Patel III, MD documented in this encounter Miscellaneous Notes * Addendum Note - Marci Patel III, MD - 12/19/2023 12:20 PM EDTAddended by: MARCI PATEL on: 12/19/2023 12:20 PM Modules accepted: Level of Service documented in this encounter Plan of Treatment Upcoming Encounters Date Type Department Care Team (Late st Contact Info) Description 12/28/2023 10:20 AM EST Office Visit Pharmacy, [place] [facility] [place] [address] [place] [address] Pharmacist1, [facility] [address] [place] [address] 03/27/2024 12:40 PM EST Office Visit Family Practice [place] [facility] [place] [address] [place] [address] Marci Patel III, MD [address] [place] [address] Health Maintenance Due Date Last Done Comments Hepatitis B Vaccine (1 of 3 - 19+ 3-dose series) 1988 Colonoscopy 2014 Fecal Occult Blood Test 2014 Sigmoidoscopy 2014 Zoster Vaccines (1 of 2) 09/29/2019 Albumin/Creatinine Ratio 04/12/2023 023, 04/05/2021, 03/13/2020 B-12 04/12/2023 04/12/2022, 03/23, 03/13/2020 Cologuard 10/08/2023 10/07/2020, 09/20, 09/29/2020 Colorectal Cancer Screening 10/08/2023 Influenza Vaccine (FLU shot) (#1) 2023 12/08/2016, 12/08/2016, 11/30/2011, Additional history exists COVID-19 Vaccine ( season) 2023 06/22/2020, 05/25/2020 Postponed from 10/22/2023 (Unavailable) Diabetic Eye Exam 06/15/2024 06/16/2023, , 04/05/2021, [...] Procedure Name Priority Date/Time Associated Diagnosis Comments HEMOGLOBIN A1C Routine 12/18/2023 10:26 AM EDT Type 2 diabetes mellitus without complication, without long-term current use of insulin (HCC) BASIC METABOLIC PANEL Routine 12/18/2023 10:26 AM EDT Type 2 diabetes mellitus without complication, without long-term current use of insulin (HCC) documented in this encounter Results * (ABNORMAL) HEMOGLOBIN A1C (12/18/2023 10:26 AM EDT) Hemoglobin A1C 7.9(H) 4.0 - 5.6 % 12/18/2023 10:48 PM EDT [facility] Comment:The use of HbA1c to monitor glycemic status is based on normal hemoglobin and HbA composition. This test should not be used in patients with abnormal hemoglobin that affects the half life of the red blood cell or the in vivo glycation rates. Estimated Average Glucose 180(H) <126 mg/dL 12/18/2023 10:48 PM EDT [facility] Blood Venous blood specimen / Unknown Venipuncture / Unknown 12/18/2023 10:26 AM EDT 12/18/2023 10:26 AM EDT Marci Patel III, MD LAB BLOOD ORDERABLE S [facility] [address] [place] [address] * (ABNORMAL) BASIC METABOLIC PANEL (12/18/2023 10:26 AM EDT) BUN 16 6 - 20 mg/dL 12/18/2023 12:[address]T [address] CREATININE 0.7 0.6 - 1.2 mg/dL 12/18/2023 12:28 PM EDT [address] EGFR >90 >=60 mL/min 12/18/2023 12:28 PM EDT [place] [address] Comment:eGFR is calculated b ased on the CKD-EPI 2020 equation. SODIUM 139 135 - 146 mmol/L 12/18/2023 12:28 PM EDT [address] POTASSIUM 4.7 3.5 - 5.1 mmol/L 12/18/2023 12:28 PM EDT [place] [address] CHLORIDE 100 98 - 107 mmol/L 12/18/2023 12:[address] PM [address]T [address] CO2 30 22 - 32 mmol/L 12/18/2023 12:28 PM EDT [address] ANION GAP 9 7 - 15 mmol/L 12/18/2023 12:28 PM EDT [address] GLUCOSE 192(H) 70 - 120 mg/dL 12/18/2023 12:28 PM EDT [address] CALCIUM 9.6 8.4 - 10.2 mg/dL 12/18/2023 12:28 PM EDT [address] Blood Venous blood specimen / Unknown Venipuncture / Unknown 12/18/2023 10:26 AM EDT 12/18/2023 10:26 AM EDT Marci Patel III, MD LAB BLOOD ORDERABLE S [facility] [address] [facility] [place] [address] documented in this encounter Visit Diagnoses Diagnosis Type 2 diabetes mellitus without complication, without long-term current use of insulin (HCC) documented in this encounter Care Teams Blast Furnace Checker Relationship Specialty Start Date End Date Marci Patel III, MD 200 [facility] [place] [address] PCP - General 12/02/04 documented as of this encounter
--- OUTSIDE RECORDS SUMMARY | 2024-04-25 10:40 | External Medical Summary | Summary of Care ---
Author Name Unknown Organization [facility] Address [address] [place] [address] Phone [phone] Care Team Providers Care Sawsmith Name Role Phone Hiram ROCHE MD, Jeison Hernandez Primary Care Provider [phone] Reason for Visit * Reason Onset Date Comments Health Maintenance 11/08/2023 Encounter Details Date Type Department Care Team (Late st Contact Info) Description 11/08/2023 Telephone Family Practice [facility] [place] [address] [facility] [place] [address] Jeison Gandhi III, MD [address] [place] [address] Health Maintenance Allergies Active Allergy Reactions Criticality Noted Date Comments Aspirin 12/01/1999 upset stomach Morphine 04/27/2015 Makes him want to rip things apart. documented as of this encounter (statuses as of 11/08/2023) Medications Medication Sig Dispensed Refills Start Date [...] MOUTH EVERY MORNING 90 Tablet 01/19/2023 Active metFORMIN HCl 500 MG Oral Tablet (Glucophage)Indicati ons:Type 2 diabetes mellitus without complication, without long-term current use of insulin (HCC) TAKE 2 TABLETS BY MOUTH TWICE DAILY WITH MORNING AND EVENING MEAL 360 Tablet 03/09/2023 Active Empagliflozin 25 MG Oral Tablet (Jardiance) [...] EVERY EVENING 90 Tablet 1 08/23/2023 Active documented as of this encounter (statuses as of 11/08/2023) Active Problems Problem Noted Date Diagnosed Date [...] as of this encounter (statuses as of 11/08/2023) Resolved Problems Problem Noted Date Diagnosed Date [...] as of this encounter (statuses as of 11/08/2023) Immunizations Name Administration Dates Next Due COVID-19 mRNA, LNP-s, No Pre serve, 2-Dose Series (Moderna) 06/22/2020,05/25/2020 Diptheria/Tetanus (Adult) 01/16/2006 H1N1 2009 Influenza, IM 02/24/2009 Pneumococcal Conjugate Vacci ne, 20-valent ([id number]) 06/16/2023 Seasonal Influenza, Quadriva lent, No Preserve, IM 12/08/2016 Seasonal Influenza, Trivalen t, (IIV3), with Preserv, (Fluzone) 11/30/2011,12/07/2010,02/15/2010,2009,12/09/2005 TDAP (age 10 and older)(Boostrix) 06/16/2023,10/2011 documented as of this encounter Social History Tobacco Use Types Packs/Day Years Used Date Smoking Tobacco: Never Smokeless Tobacco: Never Comments:No current passive smoke exposures Alcohol Use Standard Drinks/Week Comments Yes 0 (1 standard drink = 0.6 oz pur e alcohol) rare PHQ-2 Answer Date Recorded PHQ-2 Score 0 03/01/2019 Hunger Vital Sign Answer Date Recorded Worried [...] on file documented as of this encounter Miscellaneous Notes * Telephone Encounter - Soila Lopez LPN - 11/08/2023 8:47 AM EDT Care Gaps Comprehensive Care Outreach Last Office/Telemedicine Visit: 06/16/2023 (in office), Visit date not found (telemedicine) Next Office Visit: 12/18/2023 Hemoglobin AIC Results: Lab Results Component Value Date/Time HEMOGLOBIN A1C - [facility] 6.8 (H) 05/01/2023 08:42 AM HEMOGLOBIN A1C - [facility] 7.9 (H) 01/20/2022 10:28 AM HEMOGLOBIN A1C - [facility] 7.4 (H) 06/14/2021 10:45 AM HEMOGLOBIN A1C - [facility] 7.1 (H) 03/13/2020 09:44 AM HEMOGLOBIN A1C - [facility] 7.6 (H) 12/17/2019 02:35 PM HEMOGLOBIN A1C, DBS - [facility] 7.3 (H) 12/09/2022 09:31 AM BP Readings from Last 1 Encounters: 06/16/23 118/70 Reviewed Health Maintenance below: Health Maintenance Topic Date Due Hepatitis B Vaccine (1 of 3 - 19+ 3-dose series) Never done Zoster Vaccines (1 of 2) Never done Depression Screening 12/15/2020 Albumin/Creatinine Ratio 04/12/2023 B-12 04/12/2023 Colorectal Cancer Screening 10/08/2023 Influenza Vaccine (FLU shot) (1) 10/22/2023 COVID-19 Vaccine ( season) 2023 HbA1c 11/01/2023 Cologuard due Labs already ordered Care Gap Outreach Action Taken: FromUshart message sent documented in this encounter Plan of Treatment Upcoming Encounters Date Type Department Care Team (Late st Contact Info) Description 12/18/2023 9:40 AM EDT Office Visit Family Practice [facility] [place] [address] [facility] [place] [address] Jeison Gandhi III, MD [address] [facility] [place] [address] Health Maintenance Due Date Last Done Comments Hepatitis B Vaccine (1 of 3 - 19+ 3-dose series) 1988 Colonoscopy 2014 Fecal Occult Blood Test 2014 Sigmoidoscopy 2014 Zoster Vaccines (1 of 2) 09/29/2019 Depression Screening 12/15/2020 12/16/2019 Albumin/Creatinine Ratio 04/12/2023 023, 04/05/2021, 03/13/2020 B-12 04/12/2023 04/12/2022, 03/23, 03/13/2020 Cologuard 10/08/2023 10/07/2020, 09/20, 09/29/2020 Colorectal Cancer Screening 10/08/2023 COVID-19 Vaccine ( season) 2023 06/22/2020, 05/25/2020 Influenza Vaccine (FLU shot) (#1) 2023 12/08/2016, 11/30/2011, 12/07/2010, Additional history exists HbA1c 11/01/2023 05/01/2023, 11/21, 01/20/2022, Additional history exists GFR 04/30/2024 05/01/2023, 03/24, 04/05/2021, Additional history exists Diabetic Eye Exam 06/15/2024 06/16/2023, , 04/05/2021, Additional history exists Diabetic Foot Exam 06/15/2024 06/16/2023, 0 04/05/2021, 01/13/2020 Lipid Panel 04/30/2028 05/01/2023, 03/24, 12/14/2020, Additional [...] filedocumented as of this encounter Care Teams Sawsmith Relationship Specialty Start Date End Date Jeison Gandhi III, MD [address] [place] [address] PCP - General 12/02/04 documented as of this encounter
--- OUTSIDE RECORDS SUMMARY | 2024-04-25 10:40 | External Medical Summary ---
Author Name Unknown Address Unknown Organization [id number]:[facility] [address] Laboratory Report Ordering Provider Test Date Status JORGE COVARRUBIAS III 12/18/2023 10:26:57 Final Observation Date Value Abnormality Reference (Units ) Status BUN 12/18/2023 10:26:57 16 6-20 (mg/dL) Final Creatinine 12/18/2023 10:26:57 0.7 0.6-1.2 (mg/dL) Final Glomerular filtration rate/1.73 sq M.predicted [Volume Rate/Area] in Serum, Plasma or Blood by Creatinine-based formula (CKD-EPI) 12/18/2023 10:26:57 >90 >=60 (mL/min) Final eGFR is calculated based on the CKD-EPI 2020 equation. Sodium 12/18/2023 10:26:57 139 135-146 (m mol/L) Final Potassium 12/18/2023 10:26:57 4.7 3.5-5.1 (m mol/L) Final Cl 12/18/2023 10:26:57 100 98-107 (mm ol/L) Final CO2 12/18/2023 10:26:57 30 22-32 (mmo l/L) Final Anion gap 12/18/2023 10:26:57 9 7-15 (mmol /L) Final Glucose 12/18/2023 10:26:57 192 Above high normal 70 -120 (mg/dL) Final Calcium 12/18/2023 10:26:57 9.6 8.4-10.2 ( mg/dL) Final Performing Location [facility] [place] [address]
--- OUTSIDE RECORDS SUMMARY | 2024-04-25 10:40 | External Medical Summary | Summary of Care ---
Author Name Unknown Organization [facility] Address [address] [place] [address] Phone [phone] Care Team Providers Care Tabulating Supervisor Name Role Phone Hiram ROCHE MD, Jeison Hernandez Primary Care Provider [phone] Reason for Visit * Reason Comments Outpatient Testing Encounter Details Date Type Department Care Team (Late st Contact Info) Description 12/18/2023 10:30 AM EDT Laboratory Laboratory [facility] [address] [place] [id number] [place], [address] [place] [address] Type 2 diabetes mellitus without complication, without long-term current use of insulin ([facility]) Allergies Active Allergy Reactions Criticality Noted Date Comments Aspirin 12/01/1999 upset stomach Morphine 04/27/2015 Makes him want to rip things apart. documented as of this encounter (statuses as of 12/18/2023) Medications Medication Sig Dispensed Refills Start Date [...] without long-term current use of insulin (HCC) 1 daily with breakfast x 2 weeks, then 2 daily x 2 weeks, then 2 twice daily breakfast and dinner 360 Tablet 3 12/18/2023 Active Cyclobenzaprine HCl 10 MG Oral Tablet (Flexeril) Take 1 Tablet by mouth 2 times a day as needed for Muscle spasms. 10 Tablet 2 12/18/2023 Active documented as of this encounter (statuses as of 12/18/2023) Active Problems Problem Noted Date Diagnosed Date [...] as of this encounter (statuses as of 12/18/2023) Resolved Problems Problem Noted Date Diagnosed Date [...] as of this encounter (statuses as of 12/18/2023) Immunizations Name Administration Dates Next Due COVID-19 mRNA, LNP-s, No Pre serve, 2-Dose Series (Moderna) 06/22/2020,05/25/2020 Diptheria/Tetanus (Adult) 01/16/2006 H1N1 2009 Influenza, IM 02/24/2009 Pneumococcal Conjugate Vacci ne, 20-valent ([id number]) 06/16/2023 Seasonal Influenza Vac., MDV , IM, [...] on file documented as of this encounter Plan of Treatment Upcoming Encounters Date Type Department Care Team (Late st Contact Info) Description 12/28/2023 10:20 AM EST Office Visit Pharmacy, [facility] [place] [address] [place] [address] Pharmacist1, [facility] [address] [place] [id number] 03/27/2024 12:40 PM EST Office Visit Family Practice [facility] [place] [address] [place] [address] Jeison Gandhi III, MD [address] [place] [id number] Pending Results Name Type Priority Associated Diagnoses Date /Time BASIC METABOLIC PANEL Lab Routine Type 2 diabetes mellitus without complication, without long-term current use of insulin (HCC) 12/18/2023 10:26 AM EDT HEMOGLOBIN A1C Lab Routine Type 2 diabetes mellitus without complication, without long-term current use of insulin (HCC) 12/18/2023 10:26 AM EDT Health Maintenance Due Date Last Done Comments [...] 2023 12/08/2016, 12/08/2016, 11/30/2011, Additional history exists HbA1c 11/01/2023 05/01/2023, 11/21, 01/20/2022, Additional history exists COVID-19 Vaccine ( season) 2023 06/22/2020, 05/25/2020 Postponed from 10/22/2023 (Unavailable) GFR 04/30/2024 05/01/2023, 022 02/2022, 04/05/2021, Additional history exists Diabetic Eye Exam 06/15/2024 06/16/2023, , 04/05/2021, Additional history exists Diabetic Foot Exam 06/15/2024 06/16/2023, 0 04/05/2021, 01/13/2020 Depression Screening 12/17/2024 12/18/2023 Lipid Panel 04/30/2028 05/01/2023, 02/2 02/2022, 12/14/2020, Additional history exists DTap/Tdap Vaccines (7 [...] (HCC) documented in this encounter Care Teams Tabulating Supervisor Relationship Specialty Start Date End Date Jeison Gandhi III, MD [address] [facility] [place] [address] PCP - General 12/02/04 documented as of this encounter
--- OUTSIDE RECORDS SUMMARY | 2024-04-25 10:40 | External Medical Summary | Summary of Care ---
Author Name Unknown Organization [facility] Address [address] [place] [address] Phone [phone] Care Team Providers Care Shuttle Fitting Supervisor Name Role Phone Hiram ROCHE MD, Jeison Hernandez Primary Care Provider [phone] Encounter Details Date Type Department Care Team (Late st Contact Info) Description 12/20/2023 Orders Only PATIENT PORTAL DO NOT DELETE THIS DEPT USED BY [facility] [id number] Allergies Active Allergy Reactions Criticality Noted Date Comments Aspirin 12/01/1999 upset stomach Morphine 04/27/2015 Makes him want to rip things apart. documented as of this encounter (statuses as of 12/20/2023) Medications Medication Sig Dispensed Refills Start Date [...] as of this encounter (statuses as of 12/20/2023) Active Problems Problem Noted Date Diagnosed Date [...] as of this encounter (statuses as of 12/20/2023) Resolved Problems Problem Noted Date Diagnosed Date [...] as of this encounter (statuses as of 12/20/2023) Immunizations Name Administration Dates Next Due COVID-19 mRNA, LNP-s, No Pre serve, 2-Dose Series (Moderna) 06/22/2020,05/25/2020 Diptheria/Tetanus (Adult) 01/16/2006 H1N1 2009 Influenza, IM 02/24/2009 Pneumococcal Conjugate Vacci ne, 20-valent ([id number]) 06/16/2023 Seasonal Influenza Vac., MDV , IM, [...] AM EST Office Visit Pharmacy, [facility] [place] [address] [place] [address] Pharmacist1, [facility] [address] [place] [address] 03/27/2024 12:40 PM EST Office Visit Family Practice [facility] [place] [address] [place] [address] Jeison Gandhi III, MD [address] [place] [address] Health Maintenance Due Date Last Done Comments [...] filedocumented as of this encounter Care Teams Shuttle Fitting Supervisor Relationship Specialty Start Date End Date Teller III, Jeison E, MD [address] [place] [address] PCP - General 12/02/04 documented as of this encounter
--- OUTSIDE RECORDS SUMMARY | 2024-04-25 10:40 | External Medical Summary ---
Author Name Unknown Address Unknown Organization K01:[facility] - [address] [facility] [address] Laboratory Report Ordering Provider Test Date Status JORGE COVARRUBIAS III 12/18/2023 10:26:57 Final Observation Date Value Abnormality Reference (Units ) Status HbA1C 12/18/2023 10:26:57 7.9 Above high normal 4. 0-5.6 (%) Final The use of HbA1c to monitor glycemic status is based on normal hemoglobin and HbA composition. This test should not be used in patients with abnormal hemoglobin that affects the half life of the red blood cell or the in vivo glycation rates. Glucose, estimated average 12/18/2023 10:26:57 180 Above high normal <126 (mg/dL) Reymundo cardona Performing Location [facility] - [address] [facility] [address]
[2024-04-25] MEDS: FLUTICASONE/VILANTEROL 200/25MCG 14 PUFFS/INHALER INH SCH (10:49)
--- NOTE | 2024-04-25 11:01 | Ultrasound Report ---
US abdomen limited HISTORY: screen for gallstones. COMPARISON: 09/04/[address] of 04/25/2024. FINDINGS: Pancreas is obscured by overlying bowel gas. There is diffuse fatty liver. Liver is poorly seen. Portal vein is not visualized. Common bile duct is not well seen. No gross biliary dilatation s een. Gallbladder is poorly visualized. Right kidney shows no gross hydronephrosis. IMPRESSION: Nondiagnostic exam. ACT 112: Negative or not required by law. Electronically signed by: Henry Posada M.D. 04/25/2024 10:59 AM
[2024-04-25] MEDS: HYDROmorphone INJ 1 MG/ML SYRINGE IV PRN (11:27)
--- NOTE | 2024-04-25 11:36 | Cardiology Consultation ---
Date of Consultation April 25, 2024 Assessment & Plan (1) PAF (paroxysmal atrial fibrillation): (2) Hypomagnesemia: (3) Edema leg: Plan 53-year-old male admitted secondary to pancreatitis. Developed paroxysmal atrial fibrillation with rapid ventricular response in the ER. Atrial fibrillation occurring in setting of potential reversible causes including acute pancreatitis, vomiting, and electrolyte derangement. Spontaneously converted to sinus rhythm. Echocardiogram demonstrating preserved LV systolic function, no significant valvular pathology, normal left atrial dimension. Recommendations: * Metoprolol 25 mg x 1 now then 25 mg twice daily. * Supplement electrolytes as indicated. * 2gm IV magnesium sulfate ordered. * Repeat basic metabolic panel and serum magnesium level in a.m. * Lower extremity venous duplex for assessment of mildly asymmetric edema * Continue telemetry monitoring. * Management of pancreatitis as per gastroenterology/internal medicine. I spent a total of 60 minutes on the date of service in preparation, delivery, and documentation of the care provided to this patient, excluding any time spent in the performance of separately billed services. Syd Keyes DO, [facility] History of Present Illness Reason for Consultation: Paroxysmal atrial fibrillation Requesting Physician: Dr. Tex Mcbride Attending Physician: Chava Reddy DO History of Present Illness 53-year-old male present to the emergency department secondary to epigastric discomfort and vomiting. Diagnosed with acute pancreatitis. Epigastric discomfort described as sharp. Tachycardic on presentation. ECG confirming atrial fibrillation with rapid ventricular response. Treated with intravenous Cardizem followed by continuous IV Cardizem infusion. Initially rate improved from 160s down to 90-100 bpm. Converted to sinus rhythm while in ER. Received 1 dose of IV Lopressor. Oral metoprolol ordered, however, has not been given today. Preliminary review of bedside echocardiogram demonstrates preserved LV systolic function, no significant valvular pathology, normal left atrial dimension. Chart history of CVA in 2017, however, review of records demonstrates patient presented with syncope at that time. The MRI of brain was negative for CVA and he was discharged with a diagnosis of syncope and asthma exacerbation. Patient resting comfortably. Remains in sinus rhythm on telemetry. Denies palpitations during episode of atrial fibrillation per reports family history of atrial fibrillation involving his mother. History includes hypertension, diabetes, and dyslipidemia. Allergies Allergy/AdvReac Type Severity Reaction Status Date / Time aspirin AdvReac Intermediate Gastrointestinal Verified 04/25/24 08:12 Upset morphine AdvReac Intermediate "FLIP OUT" Verified 04/25/24 08:12 Home Medications Medication Instructions Recorded Confirmed Type albuterol sulfate 0.63 mg/3 mL 0.63 mg inhalation QID PRN 06/09/18 04/25/24 History solution for nebulization Shortness Of Breath Or Wheezing metformin 500 mg tablet 1,000 mg PO BIDM 10/18/20 04/25/24 History mometasone-formoterol HFA 200 2 inh inhalation BID 10/18/20 04/25/24 History mcg-5 mcg/actuation aerosol inhaler (Dulera) montelukast 10 mg tablet 10 mg PO HS 10/18/20 04/25/24 History albuterol sulfate 90 mcg/actuation 2 inh inhalation Q4H PRN shortness 03/28/22 04/25/24 Rx aerosol inhaler of breath or wheezing #8.5 grams atorvastatin 10 mg tablet 10 mg PO DAILY 04/25/24 04/25/24 History glipizide 5 mg tablet, extended 5 mg PO DAILY 04/25/24 04/25/24 History release 24 hr lisinopril 10 mg tablet 10 mg PO DAILY 04/25/24 04/25/24 History Patient History Family History Other Family history non-contributory Social History Smoking Status: Never smoker Second Hand Exposure: No; Do You Dip or Chew Tobacco: No; Tobacco Cessation Education Requested by Patient: No Hx Alcohol Use: No Hx Substance Use: No Preferred Language: Bengali Communication Ability: Effective 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 Beliefs That Will Affect Care: None Current Living Situation: Parent and Family Other Information That Helps Us Care for You: No Feels Safe at Home: Yes Safety Concerns: Feels Safe At This Time Assistive Devices: Glasses Review of Systems Review of Systems: All systems reviewed & are unremarkable except as noted in Subjective Physical Exam Constitutional: + obese; no acute distress Respiratory: no respiratory distress and no labored breathing Auscultation: no crackles, no rales, no rhonchi and no wheezes Cardiovascular: Rate/Rhythm: regular rate and regular rhythm Heart Sounds: normal S1 and normal S2; no murmur Vessels: radial pulses present; no JVD and no carotid bruit Extremities: + edema (+1 B/L LE edema R>L) Gastrointestinal (Abdomen): Inspection/Auscultation: abdomen not distended Percussion/Palpation: + abdomen tender; no guarding Neurologic: CN's II-XI intact bilaterally and moves all extremities; no focal motor deficits Results & Data Vital Signs (Past 12 Hours) Vital Signs Temp Pulse Pulse Resp BP BP Pulse Ox 04/25/24 11:00 90 19 116/81 96 04/25/24 10:50 91 H 17 116/81 95 04/25/24 10:00 87 17 143/87 H 94 04/25/24 08:30 86 17 119/71 93 04/25/24 08:00 86 18 125/76 92 04/25/24 07:39 92 H 121/87 04/25/24 07:30 91 H 21 103/72 92 04/25/24 07:00 92 H 23 121/87 93 04/25/24 06:42 100 H 14 116/84 94 04/25/24 06:42 93 H 122/96 04/25/24 06:30 93 H 18 122/96 95 04/25/24 06:24 103 H 04/25/24 05:41 116 H 18 114/92 94 04/25/24 05:22 127 H 22 117/87 95 04/25/24 04:42 136 H 18 145/87 H 94 04/25/24 04:00 138 H 20 120/91 95 04/25/24 03:50 143 H 20 147/95 H 94 04/25/24 03:33 146 H 20 137/103 H 93 04/25/24 03:15 133 H 20 135/114 H 94 04/25/24 03:01 140 H 24 135/113 H 95 04/25/24 02:45 142 H 22 121/94 95 04/25/24 02:44 162 H 04/25/24 02:43 161 H 18 121/94 95 04/25/24 02:13 36.9 C 160 H 18 136/98 95 O2 Del Method 04/25/24 11:00 Room Air 04/25/24 10:50 Room Air 04/25/24 10:00 Room Air 04/25/24 08:30 04/25/24 08:00 04/25/24 07:39 04/25/24 07:30 04/25/24 07:00 Room Air 04/25/24 06:42 04/25/24 06:42 04/25/24 06:30 04/25/24 06:24 04/25/24 05:41 04/25/24 05:22 04/25/24 04:42 04/25/24 04:00 04/25/24 03:50 04/25/24 03:33 04/25/24 03:15 04/25/24 03:01 04/25/24 02:45 04/25/24 02:44 04/25/24 02:43 04/25/24 02:13 Room Air Laboratory Results Cardiac Enzymes 04/25/24 04/25/24 Range/Units 02:29 02:34 AST 19 (13-39) U/L Troponin I High Sens 4.8 (0-20) pg/ml B-Natriuretic Peptide 30 (0-100) pg/ml Coagulation 04/25/24 04/25/24 Range/Units 02:29 02:34 PT 10.2 (9.0-12.0) Seconds APTT 29 (21-31) Seconds B-Natriuretic Peptide 30 (0-100) pg/ml Lipids 04/25/24 Range/Units 02:29 Triglycerides 74 (0-150) mg/dl CBC 04/25/24 Range/Units 02:29 WBC 14.17 H (4.8-10.8) K/ul RBC 4.80 (4.70-6.10) M/uL Hgb 13.8 L (14.0-18.0) g/dl Hct 43.3 (42.0-52.0) % Plt Count 266 (130-400) K/uL Neut # (Auto) 9.05 H (1.40-6.50) K/uL Lymph # (Auto) 3.24 (1.20-3.40) K/uL Jessamine # (Auto) 1.22 H (0.11-0.59) K/uL Eos # (Auto) 0.37 (0.00-0.50) K/uL Baso # (Auto) 0.07 (0.00-0.20) K/uL Comprehensive Metabolic Panel 04/25/24 Range/Units 02:29 Sodium 135 L (136-145) mmol/L Potassium 4.1 (3.5-5.1) mmol/L Chloride 101 (98-107) mmol/L Carbon Dioxide 27 (21-32) mmol/L BUN 18 (6-23) mg/dl Creatinine 0.79 (0.6-1.4) mg/dl Glucose 192 H (70-99(Fasting)) mg/dl Calcium 9.5 (8.6-10.3) mg/dl AST 19 (13-39) U/L ALT 25 (7-52) U/L Alkaline Phosphatase 95 (34-104) U/L Total Protein 7.5 (6.0-8.3) gm/dl Albumin 4.1 (3.4-5.0) gm/dl Intake and Output 04/24/24 04/25/24 04/25/24 22:59 06:59 14:59 Intake Total 1040.083 / 1040.083 100 / 100 Output Total 1000 / 1000 Balance 40.083 / 40.083 100 / 100 Intake: IV 1040.083 / 1040.083 100 / 100 Doxycycline Hyclate 100 mg In 100 / 100 Dextrose 5% Mini-B 100 ml @ 50 mls/hr IV NOW STA Rx#:[id number] Sodium Chloride 0.9% 1,000 ml @ 1000 / 1000 999 mls/hr IV .Q1H1M ONE Rx#: [id number] dilTIAZem HCL 125 mg In 40.083 / 40.083 Dextrose 5% 100 ml @ 15 MG/HR 15 mls/hr IV .Q8H20M [facility] Rx#: [id number] Output: Other 1000 / 1000 Other: Weight 115 kg 115 kg Weight Measurement Method Chair Scale Built in [facility] Patient Weight 04/26/24 06:59 Weight 115 kg
[2024-04-25] MEDS: MAGNESIUM SULFATE / D5W 1 GM/100 ML BAG IV SCH (13:23)
[2024-04-25] MEDS: METOPROLOL TARTRATE 25 MG TAB PO STA (13:55)
[2024-04-25] MEDS: LACTATED RINGER'S 1,000 ML IV SCH (14:45)
--- NOTE | 2024-04-25 15:54 | Ultrasound Report ---
US venous doppler LE RT HISTORY: 53 years-old Male RLE edema acute pain and swelling of the right lower leg COMPARISON: 08/12/2023 TECHNIQUE: Multiple real-time sonographic images of the right lower extremity deep venous structures were obtained assessing grayscale appearance, color and spectral flow. FINDINGS: Mild subcutaneous edema. Normal flow, compressibility, phasicity and augmentation. IMPRESSION: No sonographic evidence of deep venous thrombosis. ACT 112: Negative or not required by law. The above report was generated using voice recognition software. It may contain grammatical, syntax o r spelling errors. Electronically signed by: Js Puga M.D. 04/25/2024 3:52 PM
--- NOTE | 2024-04-25 16:33 | Communication Note ---
Date of Service: April 25, 2024 Patient seen and evaluated on the medical floor. Pain is being controlled with pain medication. Abdomen: Tender to palpation, mild guarding Ultrasound lower extremity negative for DVT Continue IV fluids, continue n.p.o. Hold IRLANDA inhibitor, potential etiology of pancreatitis Check triglycerides in a.m. Continue with current care.
[2024-04-25] MEDS: METOPROLOL TARTRATE 25 MG TAB PO SCH (20:21)
[2024-04-25] MEDS: DOXYCYCLINE HYCLATE 100 MG CAP PO SCH (20:21)
[2024-04-25] MEDS: MONTELUKAST SODIUM 10 MG TABLET PO SCH (20:22)
--- NOTE | 2024-04-25 20:48 | Communication Note ---
Date of Service: April 25, 2024 Patient complaining of burning LE pain for about a year now as per RN. AP DM neuropathy Initiate Cymbalta
[2024-04-25] MEDS: LACTATED RINGER'S 1,000 ML IV ONE (21:10)
[2024-04-25] MEDS: DULoxetine HCL 20 MG CAP PO SCH (21:44)
[2024-04-26 06:47] LABS: Basophils # (auto) 0.06 K/uL (0.00-0.20); Basophils % (auto) 0.4 %; Eosinophils # (auto) 0.21 K/uL (0.00-0.50); Eosinophils % (auto) 1.3 %; Hematocrit (blood only) 38.8 % (42.0-52.0); Hemoglobin 12.2 g/dl (14.0-18.0); Immature Granulocytes # (auto) 0.14 K/uL (0.01-0.20); Immature Granulocytes % (auto) 0.9 %; Lymphocytes % (auto) 11.2 %; Mean Corpuscular Hgb Conc 31.4 g/dL (32.0-36.0); Mean Corpuscular Volume 92.4 fL (80.0-100.0); Mean Platelet Volume 10.3 fL (9.4-12.4); Monocytes # (auto) 1.76 K/uL (0.11-0.59); Neutrophils % (auto) 75.2 %; Platelet Count 237 K/uL (130-400); RDW Coefficient of Variation 13.4 % (11.5-14.5); RDW Standard Deviation 45.3 fL (36.4-46.3); White Blood Count 16.07 K/ul (4.8-10.8)
[2024-04-26 07:42] LABS: Albumin Globulin Ratio 1.2 (0.9-2); Albumin Level 3.5 gm/dl (3.4-5.0); BUN Creatinine Ratio 17.4 (10-20); Bilirubin,Total 1.9 mg/dl (0.2-1.0); Calcium 8.5 mg/dl (8.6-10.3); Chol HDL Ratio 1.8 (0-5); Creatinine Clr Calc Pharmacy 153.1 ml/min; Potassium 4.8 mmol/L (3.5-5.1); Total Protein 6.5 gm/dl (6.0-8.3)
[2024-04-26] MEDS: LANTUS PER UNIT CHARGE SQ SCH (08:14)
--- NOTE | 2024-04-26 09:41 | Gastroenterology Progress Note ---
Date of Service April 26, 2024 Assessment & Plan (1) Acute pancreatitis: Plan: 53 year old male w/ history of COPD, CVA, asthma and others below presenting to the ED w/ongoing upper abdominal pain, nausea/vomiting - admitted w/ acute pancreatitis, afib w/ RVR. Etiology of pancreatitis unclear, no report of ETOH/tobacco use, no stones appreciated on imaging. US non-diagnostic. He does report a few coworkers with illness this week but also family history of GB dysfunction, 1. Acute pancreatitis - No stones appreciated on imaging, LFTs normal. - Triglycerides 59 - No ETOH or tobacco reported - New medications Lisinopril - Class 2 (moderate evidence of causation) Atorvastatin - Class 4 (very low-quality evidence) - Symptomatic treatment - Continue IV fluid replacement for now - May advance to low fat as tolerated - Antiemetics PRN - Analgesia PRN - Please arrange OP EGD/EUS after resolution of pancreatitis in about 4-6 weeks time - He should also have an OP colonoscopy for colon CA screening 2. Afib w/ RVR - management per primary team I spent a total of 40 minutes on the date of service in review of patient's record, and previously obtained information in person and appropriate medical visit, discussion and education of plan, with patient and/or caregiver, placing orders for tests/referral/procedures as medically necessary and documentation of pertinent clinical information in patient's medical records for their visit today.Thank you for allowing us to participate in the care of this patient. Please call with any acute changes, questions or concerns. Please see addendum below with additional recommendation from my supervising physician. Admission and Anticipated Discharge Date Admission Date: April 25, 2024 Supervising Physician Co-Signing Physician Notes I saw and examined this patient with our nurse practitioner and agree with her assessment and plan. Clinically improving less abdominal pain. Abdominal ultrasound nondiagnostic in light of overlying bowel gas. Would recommend repeat abdominal ultrasound after acute pancreatitis is resolved. This can be done as an outpatient to exclude gallstones as etiology for his pancreatitis. Can advance diet as tolerated to low-fat. Would send repeat lipase as well as an IgG4 level Subjective Pain improving. Still present but mild. Explained as fullness/pressure in upper abd. Has been tolerating liquids. Desires to try a low fat diet. No nausea/vomiting. No change in bowel habits - no black or bloody stools. Review of Systems Review of Systems: All other findings negative except as noted in HPI. Physical Exam Constitutional: WD/WN, vitals as above Gastrointestinal (Abdomen): normal bowel sounds, soft, nontender, no hepatosplenomegaly Skin: no rashes, warm and dry Results & Data Results & Data Vital Signs (Past 12 Hours) Vital Signs Temp Pulse Pulse Resp BP Pulse Ox O2 Del Method 04/26/24 07:48 98.8 F 91 H 18 142/85 H 93 Room Air 04/26/24 05:53 87 04/26/24 02:44 98.1 F 72 16 123/63 94 Room Air 04/25/24 23:05 98.2 F 88 18 126/83 96 Room Air 04/25/24 21:56 83 Laboratory Results Laboratory Results - last 48 hr 04/25/24 04/25/24 04/25/24 02:29 02:34 03:18 WBC 14.17 H RBC 4.80 Hgb 13.8 L Hct 43.3 MCV 90.2 MCH 28.8 MCHC 31.9 L RDW Std Deviation 43.6 RDW Coeff of Iraj 13.2 Plt Count 266 MPV 10.1 Immature Gran % (Auto) 1.6 Neut % (Auto) 63.8 Lymph % (Auto) 22.9 [place] % (Auto) 8.6 Eos % (Auto) 2.6 Baso % (Auto) 0.5 Neut # (Auto) 9.05 H Lymph # (Auto) 3.24 [place] # (Auto) 1.22 H Eos # (Auto) 0.37 Baso # (Auto) 0.07 Immature Gran # (Auto) 0.22 H PT 10.2 INR 0.9 APTT 29 PTT Ratio 1.1 Sodium 135 L Potassium 4.1 Chloride 101 Carbon Dioxide 27 Anion Gap 7 BUN 18 Creatinine 0.79 Est Cr Clr Drug Dosing 133.7 eGFR 105.57 BUN/Creatinine Ratio 22.8 H Glucose 192 H POC Glucose Lactate 1.1 Calcium 9.5 Magnesium 1.6 L Total Bilirubin 0.8 AST 19 ALT 25 Alkaline Phosphatase 95 Troponin I High Sens 4.8 B-Natriuretic Peptide 30 Total Protein 7.5 Albumin 4.1 Globulin 3.4 Albumin/Globulin Ratio 1.2 Triglycerides 74 Cholesterol LDL Cholesterol, Calc VLDL Cholesterol, Calc HDL Cholesterol Cholesterol/HDL Ratio Lipase 2223 H Procalcitonin TSH 2.466 Urine Color Yellow Urine Appearance Clear Urine pH 6.0 Ur Specific [place] 1.009 Urine Protein Negative Urine Glucose (UA) Trace H Urine Ketones Negative Urine Blood Negative Urine Nitrite Negative Urine Bilirubin Negative Urine Urobilinogen Negative Ur Leukocyte Esterase Negative Adenovirus (PCR) Not Detected B. pertussis DNA (PCR) Not Detected B.parapertussis DNA PCR Not Detected C. pneumoniae DNA (PCR) Not Detected Coronavirus OC43 (PCR) Not Detected Coronavirus HKU1 (PCR) Not Detected Coronavirus 229E (PCR) Not Detected SARS-CoV-2 (PCR) Not Detected Coronavirus NL63 (PCR) Not Detected Human Metapneumovir PCR Not Detected Influenza Type A (PCR) Not Detected Influenza Type B (PCR) Not Detected M. pneumoniae (PCR) Not Detected Parainfluenza 1 (PCR) Not Detected Parainfluenza 2 (PCR) Not Detected Parainfluenza 3 (PCR) Not Detected Parainfluenza 4 (PCR) Not Detected RSV (PCR) Not Detected Entero/Rhino (PCR) Not Detected 04/25/24 04/25/24 04/25/24 06:01 07:41 09:24 WBC RBC Hgb Hct MCV MCH MCHC RDW Std Deviation RDW Coeff of Iraj Plt Count MPV Immature Gran % (Auto) Neut % (Auto) Lymph % (Auto) [place] % (Auto) Eos % (Auto) Baso % (Auto) Neut # (Auto) Lymph # (Auto) [place] # (Auto) Eos # (Auto) Baso # (Auto) Immature Gran # (Auto) PT INR APTT PTT Ratio Sodium Potassium Chloride Carbon Dioxide Anion Gap BUN Creatinine Est Cr Clr Drug Dosing eGFR BUN/Creatinine Ratio Glucose POC Glucose 123 H Lactate 1.1 Calcium Magnesium Total Bilirubin AST ALT Alkaline Phosphatase Troponin I High Sens B-Natriuretic Peptide Total Protein Albumin Globulin Albumin/Globulin Ratio Triglycerides Cholesterol LDL Cholesterol, Calc VLDL Cholesterol, Calc HDL Cholesterol Cholesterol/HDL Ratio Lipase Procalcitonin 0.08 TSH Urine Color Urine Appearance Urine pH Ur Specific [place] Urine Protein Urine Glucose (UA) Urine Ketones Urine Blood Urine Nitrite Urine Bilirubin Urine Urobilinogen Ur Leukocyte Esterase Adenovirus (PCR) B. pertussis DNA (PCR) B.parapertussis DNA PCR C. pneumoniae DNA (PCR) Coronavirus OC43 (PCR) Coronavirus HKU1 (PCR) Coronavirus 229E (PCR) SARS-CoV-2 (PCR) Coronavirus NL63 (PCR) Human Metapneumovir PCR Influenza Type A (PCR) Influenza Type B (PCR) M. pneumoniae (PCR) Parainfluenza 1 (PCR) Parainfluenza 2 (PCR) Parainfluenza 3 (PCR) Parainfluenza 4 (PCR) RSV (PCR) Entero/Rhino (PCR) 04/25/24 04/25/24 04/25/24 11:31 16:12 20:21 WBC RBC Hgb Hct MCV MCH MCHC RDW Std Deviation RDW Coeff of Iraj Plt Count MPV Immature Gran % (Auto) Neut % (Auto) Lymph % (Auto) [place] % (Auto) Eos % (Auto) Baso % (Auto) Neut # (Auto) Lymph # (Auto) [place] # (Auto) Eos # (Auto) Baso # (Auto) Immature Gran # (Auto) PT INR APTT PTT Ratio Sodium Potassium Chloride Carbon Dioxide Anion Gap BUN Creatinine Est Cr Clr Drug Dosing eGFR BUN/Creatinine Ratio Glucose POC Glucose 107 H 112 H 126 H Lactate Calcium Magnesium Total Bilirubin AST ALT Alkaline Phosphatase Troponin I High Sens B-Natriuretic Peptide Total Protein Albumin Globulin Albumin/Globulin Ratio Triglycerides Cholesterol LDL Cholesterol, Calc VLDL Cholesterol, Calc HDL Cholesterol Cholesterol/HDL Ratio Lipase Procalcitonin TSH Urine Color Urine Appearance Urine pH Ur Specific [place] Urine Protein Urine Glucose (UA) Urine Ketones Urine Blood Urine Nitrite Urine Bilirubin Urine Urobilinogen Ur Leukocyte Esterase Adenovirus (PCR) B. pertussis DNA (PCR) B.parapertussis DNA PCR C. pneumoniae DNA (PCR) Coronavirus OC43 (PCR) Coronavirus HKU1 (PCR) Coronavirus 229E (PCR) SARS-CoV-2 (PCR) Coronavirus NL63 (PCR) Human Metapneumovir PCR Influenza Type A (PCR) Influenza Type B (PCR) M. pneumoniae (PCR) Parainfluenza 1 (PCR) Parainfluenza 2 (PCR) Parainfluenza 3 (PCR) Parainfluenza 4 (PCR) RSV (PCR) Entero/Rhino (PCR) 04/26/24 04/26/24 04/26/24 05:54 07:33 11:13 WBC 16.07 H RBC 4.20 L Hgb 12.2 L Hct 38.8 L MCV 92.4 MCH 29.0 MCHC 31.4 L RDW Std Deviation 45.3 RDW Coeff of Iraj 13.4 Plt Count 237 MPV 10.3 Immature Gran % (Auto) 0.9 Neut % (Auto) 75.2 Lymph % (Auto) 11.2 [place] % (Auto) 11.0 Eos % (Auto) 1.3 Baso % (Auto) 0.4 Neut # (Auto) 12.10 H Lymph # (Auto) 1.80 [place] # (Auto) 1.76 H Eos # (Auto) 0.21 Baso # (Auto) 0.06 Immature Gran # (Auto) 0.14 PT INR APTT PTT Ratio Sodium 133 L Potassium 4.8 Chloride 99 Carbon Dioxide 28 Anion Gap 6 BUN 12 Creatinine 0.69 Est Cr Clr Drug Dosing 153.1 eGFR 109.97 BUN/Creatinine Ratio 17.4 Glucose 136 H POC Glucose 136 H 135 H Lactate Calcium 8.5 L Magnesium 1.8 Total Bilirubin 1.9 H D AST 19 ALT 22 Alkaline Phosphatase 88 Troponin I High Sens B-Natriuretic Peptide Total Protein 6.5 Albumin 3.5 Globulin 3.0 Albumin/Globulin Ratio 1.2 Triglycerides 59 Cholesterol 109 LDL Cholesterol, Calc 36 VLDL Cholesterol, Calc 12 HDL Cholesterol 61 Cholesterol/HDL Ratio 1.8 Lipase Procalcitonin TSH Urine Color Urine Appearance Urine pH Ur Specific [place] Urine Protein Urine Glucose (UA) Urine Ketones Urine Blood Urine Nitrite Urine Bilirubin Urine Urobilinogen Ur Leukocyte Esterase Adenovirus (PCR) B. pertussis DNA (PCR) B.parapertussis DNA PCR C. pneumoniae DNA (PCR) Coronavirus OC43 (PCR) Coronavirus HKU1 (PCR) Coronavirus 229E (PCR) SARS-CoV-2 (PCR) Coronavirus NL63 (PCR) Human Metapneumovir PCR Influenza Type A (PCR) Influenza Type B (PCR) M. pneumoniae (PCR) Parainfluenza 1 (PCR) Parainfluenza 2 (PCR) Parainfluenza 3 (PCR) Parainfluenza 4 (PCR) RSV (PCR) Entero/Rhino (PCR) 04/26/24 16:07 WBC RBC Hgb Hct MCV MCH MCHC RDW Std Deviation RDW Coeff of Iraj Plt Count MPV Immature Gran % (Auto) Neut % (Auto) Lymph % (Auto) [place] % (Auto) Eos % (Auto) Baso % (Auto) Neut # (Auto) Lymph # (Auto) [place] # (Auto) Eos # (Auto) Baso # (Auto) Immature Gran # (Auto) PT INR APTT PTT Ratio Sodium Potassium Chloride Carbon Dioxide Anion Gap BUN Creatinine Est Cr Clr Drug Dosing eGFR BUN/Creatinine Ratio Glucose POC Glucose 129 H Lactate Calcium Magnesium Total Bilirubin AST ALT Alkaline Phosphatase Troponin I High Sens B-Natriuretic Peptide Total Protein Albumin Globulin Albumin/Globulin Ratio Triglycerides Cholesterol LDL Cholesterol, Calc VLDL Cholesterol, Calc HDL Cholesterol Cholesterol/HDL Ratio Lipase Procalcitonin TSH Urine Color Urine Appearance Urine pH Ur Specific [place] Urine Protein Urine Glucose (UA) Urine Ketones Urine Blood Urine Nitrite Urine Bilirubin Urine Urobilinogen Ur Leukocyte Esterase Adenovirus (PCR) B. pertussis DNA (PCR) B.parapertussis DNA PCR C. pneumoniae DNA (PCR) Coronavirus OC43 (PCR) Coronavirus HKU1 (PCR) Coronavirus 229E (PCR) SARS-CoV-2 (PCR) Coronavirus NL63 (PCR) Human Metapneumovir PCR Influenza Type A (PCR) Influenza Type B (PCR) M. pneumoniae (PCR) Parainfluenza 1 (PCR) Parainfluenza 2 (PCR) Parainfluenza 3 (PCR) Parainfluenza 4 (PCR) RSV (PCR) Entero/Rhino (PCR) PG Care Time/CCT Total # of Minutes Spent Total Time Spent with Patient: Total time spent is greater than 50% in coordination of care (as documented) at patient's floor/unit and/or counseling patient: Coding Level of Care Code 75498 SUB INP/OBS CARE 2/35MIN Diagnoses Acute pancreatitis K85.90
[2024-04-26] MEDS: PROMETHAZINE 12.5 MG/50.5 ML BAG IV PRN (09:50)
--- NOTE | 2024-04-26 11:53 | Cardiology Progress Note ---
Date of Service April 26, 2024 Assessment & Plan (1) PAF (paroxysmal atrial fibrillation): (2) Hypomagnesemia: (3) Edema leg: Plan 53-year-old male admitted secondary to pancreatitis. Paroxysmal atrial fibrillation with rapid ventricular response in the ER. Atrial fibrillation occurring in setting of potential reversible causes including acute pancreatitis, vomiting, and electrolyte derangement. Spontaneously converted to sinus rhythm 04/25/2024. Echocardiogram demonstrating preserved LV systolic function, no significant valvular pathology, normal left atrial dimension. Recommendations: * Titrate metoprolol to 25 mg 3 times daily * No anticoagulation at this time due to potential reversible causes of AF and ongoing pancreatitis with mildly reduced Hgb. * Supplement electrolytes as indicated. * Repeat serum magnesium level. * Continue telemetry monitoring. * Management of pancreatitis as per gastroenterology/internal medicine. * Cardiology will sign off for the weekend. Please call with additional concerns/questions. Syd Keyes DO, [facility] Admission and Anticipated Discharge Date Admission Date: April 25, 2024 Subjective 53-year-old male seen examined the bedside. No recurrent atrial fibrillation overnight. Reports an episode of vomiting this a.m. Epigastric discomfort mildly improved. Denies chest pain or shortness of breath. Hemoglobin dropped 1.6 g overnight. No signs/symptoms of GI/ blood loss. Lower extremity venous duplex negative for DVT. Review of Systems 2 Review of Systems: All systems reviewed & are unremarkable except as noted in Subjective Physical Exam Constitutional: + obese; no acute distress Respiratory: no respiratory distress and no labored breathing Auscultation: no crackles, no rales, no rhonchi and no wheezes Cardiovascular: Rate/Rhythm: regular rate and regular rhythm Heart Sounds: normal S1 and normal S2; no murmur Vessels: radial pulses present; no JVD and no carotid bruit Extremities: + edema (+1 B/L LE edema R>L) Gastrointestinal (Abdomen): Inspection/Auscultation: abdomen not distended Percussion/Palpation: + abdomen tender; no guarding Neurologic: CN's II-XI intact bilaterally and moves all extremities; no focal motor deficits Results & Data Vital Signs (Past 12 Hours) Vital Signs Temp Pulse Pulse Resp BP Pulse Ox O2 Del Method 04/26/24 11:10 37.1 C 86 19 122/86 94 Room Air 04/26/24 07:48 37.1 C 91 H 18 142/85 H 93 Room Air 04/26/24 05:53 87 04/26/24 02:44 36.7 C 72 16 123/63 94 Room Air Laboratory Results Cardiac Enzymes 04/26/24 Range/Units 05:54 AST 19 (13-39) U/L Lipids 04/26/24 Range/Units 05:54 Triglycerides 59 (0-150) mg/dl Cholesterol 109 (0-200) mg/dl HDL Cholesterol 61 mg/dl Cholesterol/HDL Ratio 1.8 (0-5) CBC 04/26/24 Range/Units 05:54 WBC 16.07 H (4.8-10.8) K/ul RBC 4.20 L (4.70-6.10) M/uL Hgb 12.2 L (14.0-18.0) g/dl Hct 38.8 L (42.0-52.0) % Plt Count 237 (130-400) K/uL Neut # (Auto) 12.10 H (1.40-6.50) K/uL Lymph # (Auto) 1.80 (1.20-3.40) K/uL [place] # (Auto) 1.76 H (0.11-0.59) K/uL Eos # (Auto) 0.21 (0.00-0.50) K/uL Baso # (Auto) 0.06 (0.00-0.20) K/uL Comprehensive Metabolic Panel 04/26/24 Range/Units 05:54 Sodium 133 L (136-145) mmol/L Potassium 4.8 (3.5-5.1) mmol/L Chloride 99 (98-107) mmol/L Carbon Dioxide 28 (21-32) mmol/L BUN 12 (6-23) mg/dl Creatinine 0.69 (0.6-1.4) mg/dl Glucose 136 H (70-99(Fasting)) mg/dl Calcium 8.5 L (8.6-10.3) mg/dl AST 19 (13-39) U/L ALT 22 (7-52) U/L Alkaline Phosphatase 88 (34-104) U/L Total Protein 6.5 (6.0-8.3) gm/dl Albumin 3.5 (3.4-5.0) gm/dl Intake and Output 04/25/24 04/26/24 04/26/24 22:59 06:59 14:59 Intake Total 2520 / 3288.333 1650.5 / 1650.5 Output Total 201 / 201 Balance 2519 / 3287.333 1449.5 / 1449.5 Intake: IV 2100 / 2268.333 1050.5 / 1050.5 Lactated Ringer's 1,000 ml @ 2000 / 2000 1000 / 1000 100 mls/hr IV .Q10H ONE Rx#: [id number] Magnesium Sulfate / D5w 1 gm In 100 / 168.333 100 ml @ 50 mls/hr IV Q2H [facility] Rx#:[id number] Promethazine 12.5 mg In 50.5 ml 50.5 / 50.5 @ 202 mls/hr IV Q6H PRN Rx#: [id number] dilTIAZem HCL 125 mg In 0 / 0 Dextrose 5% 100 ml @ 15 MG/HR 15 mls/hr IV .Q8H20M [facility] Rx#: [id number] Oral 420 / 1020 600 / 600 Output: Emesis 200 / 200 # Bowel Movements Other: # Unmeasured Voids # [place] 1 Weight 115 kg Weight Measurement Method Built in [facility]
--- NOTE | 2024-04-26 12:49 | Hospitalist Progress Note ---
Date of Service April 26, 2024 Assessment & Plan (1) Acute pancreatitis: (2) Paroxysmal atrial fibrillation with rapid ventricular response: (3) Hypomagnesemia: (4) Morbid obesity: (5) Diabetes mellitus type 2 with complications: (6) Chronic obstructive pulmonary disease: (7) Hypertension: Plan Patient with acute pancreatitis of unclear etiology possibly secondary to IRLANDA inhibitor or other idiopathic cause. Pain improving advance diet as tolerated Currently blood pressure is well-controlled, continue to monitor off IRLANDA inhibitor Patient has remained in sinus rhythm. Suspect brief paroxysm of atrial fibrillation due to reversible causes. Continuing metoprolol. At this time no indication for anticoagulation per cardiology note Continue monitoring glucose with insulin coverage Possible discharge tomorrow if continues to tolerate advancing diet. Admission and Anticipated Discharge Date Admission Date: April 25, 2024 Subjective Patient reports feeling much better today. Minimal abdominal pain. Did have a small emesis after this with his liquid diet but is willing to try to eat more for lunch. No chest pain or palpitations. Physical Exam Physical Exam: Constitutional: Alert, nontoxic, morbidly obese HEENT: Mucous membranes moist. Lungs: Clear to auscultation, decreased, no wheezes rales or rhonchi CV: S1-S2, regular Abdomen: Soft, minimal epigastric tenderness, no guarding Extremities: No significant edema Neuro: No focal deficits Psych: Cooperative, normal mood Results & Data Results & Data Vital Signs (Past 12 Hours) Vital Signs Temp Pulse Pulse Resp BP Pulse Ox O2 Del Method 04/26/24 11:10 37.1 C 86 19 122/86 94 Room Air 04/26/24 07:48 37.1 C 91 H 18 142/85 H 93 Room Air 04/26/24 05:53 87 04/26/24 02:44 36.7 C 72 16 123/63 94 Room Air Diagnostic Findings Reviewed imaging, laboratory and diagnostic studies. Pertinent findings as below. WBC 16.0 Hemoglobin 12.2 Sodium 133 Rest electrolytes stable Creatinine 0.69 Triglycerides 59 Rest of lipid panel unremarkable Telemetry reviewed: Remains sinus rhythm
[2024-04-26] MEDS: METOPROLOL TARTRATE 25 MG TAB PO SCH (13:44)
[2024-04-26] MEDS: MAGNESIUM SULFATE / D5W 1 GM/100 ML BAG IV SCH (14:00)
[2024-04-27] MEDS: ACETAMINOPHEN 500 MG TAB PO PRN (05:38)
[2024-04-27] MEDS: METOPROLOL TARTRATE 1 MG/ML VIAL IV STA (06:27)
[2024-04-27 06:28] LABS: Hematocrit (blood only) 36.5 % (42.0-52.0); Hemoglobin 11.6 g/dl (14.0-18.0); Mean Corpuscular Hemoglobin 29.1 pg (25.0-34.0); Mean Corpuscular Hgb Conc 31.8 g/dL (32.0-36.0); Mean Corpuscular Volume 91.5 fL (80.0-100.0); Mean Platelet Volume 10.1 fL (9.4-12.4); Platelet Count 239 K/uL (130-400); RDW Coefficient of Variation 13.2 % (11.5-14.5); RDW Standard Deviation 43.9 fL (36.4-46.3); Red Blood Count 3.99 M/uL (4.70-6.10); White Blood Count 14.56 K/ul (4.8-10.8)
[2024-04-27 06:46] LABS: BUN Creatinine Ratio 15.6 (10-20); Calcium 8.5 mg/dl (8.6-10.3); Creatinine Clr Calc Pharmacy 137.2 ml/min; Potassium 4.3 mmol/L (3.5-5.1)
--- NOTE | 2024-04-27 08:10 | Gastroenterology Progress Note ---
Date of Service April 27, 2024 Assessment & Plan (1) Acute pancreatitis: Plan: Clinically resolving tolerating regular food. Etiology still unclear. Recommend outpatient abdominal ultrasound to better assess evaluate the gallbladder. Check IgG4 level. Should follow-up with our office as an outpatient as well. Admission and Anticipated Discharge Date Admission Date: April 25, 2024 Subjective Transferred to telemetry for recurrent atrial fibrillation. Denies any chest pain shortness of breath or abdominal pain. Tolerating regular diet. Physical Exam Physical Exam: No acute distress Respiratory rate regular Cardiac rhythm regular Abdomen soft nontender Results & Data Results & Data Vital Signs (Past 12 Hours) Vital Signs Temp Pulse Pulse Resp BP BP BP 04/27/24 07:58 36.7 C 111 H 16 135/88 04/27/24 07:00 138 H 04/27/24 06:50 91 H 131/81 04/27/24 06:27 132 H 129/87 04/27/24 06:10 36.8 C 132 H 18 129/87 04/27/24 03:24 36.8 C 78 18 142/88 H 04/26/24 23:13 37.8 C H 81 16 127/84 04/26/24 21:42 83 Pulse Ox O2 Del Method 04/27/24 07:58 94 Room Air 04/27/24 07:00 04/27/24 06:50 04/27/24 06:27 04/27/24 06:10 93 Room Air 04/27/24 03:24 93 Room Air 04/26/24 23:13 92 Room Air 04/26/24 21:42 PG Care Time/CCT Total # of Minutes Spent Total Time Spent with Patient: Total time spent is greater than 50% in coordination of care (as documented) at patient's floor/unit and/or counseling patient: Coding Level of Care Code 10419 SUB INP/OBS CARE 2/35MIN Diagnoses Acute pancreatitis K85.90
[2024-04-27 08:17] LABS: Estimated Average Glucose 177 mg/dl; Hemoglobin A1C 7.8 % (4.5-5.6)
[2024-04-27] MEDS ORDERED: STAT IV Infusion **Titration per Protocol STA (08:37)
[2024-04-27] MEDS: dilTIAZem HCl 5 MG/ML 5 ML VIAL IV STA (09:35)
[2024-04-27] MEDS: dilTIAZem HCL 125 MG in DEXTROSE 5% 100 ML IV SCH (09:35)
--- NOTE | 2024-04-27 11:52 | Hospitalist Progress Note ---
Date of Service April 27, 2024 Assessment & Plan (1) Acute pancreatitis: (2) Paroxysmal atrial fibrillation with rapid ventricular response: (3) Hypomagnesemia: (4) Morbid obesity: (5) Diabetes mellitus type 2 with complications: (6) Chronic obstructive pulmonary disease: (7) Hypertension: Plan Patient with complication overnight with recurrence of his atrial fibrillation with rapid ventricular response Patient will need to be transferred back to the PCU and started on IV diltiazem drip, does not seem to be responding to the metoprolol at this time Communication with cardiology team, agrees with drip, revealing his risk factors and is now more frequent atrial fibrillation agrees with anticoagulation will start Eliquis Patient's pancreatitis seems to have resolved, continue to monitor symptoms, continue current diet Hemoglobin A1c elevated, continue insulin treatment monitoring of his glucose may need more significant intervention at the time of discharge has been on oral medications at low-dose. Monitor electrolytes and renal function Admission and Anticipated Discharge Date Admission Date: April 25, 2024 Subjective Events of earlier this morning noted. Patient in and out of A-fib with RVR. Patient states that he did have the palpitations this time as the first time he could recognize he was in atrial fibrillation. No chest pain no shortness of breath. Abdominal pain is completely resolved and was able to tolerate his diet Physical Exam Physical Exam: Constitutional: Alert, nontoxic, ambulating in room, morbidly obese HEENT: Mucous membranes moist. Lungs: Clear to auscultation, decreased, no wheezes rales or rhonchi CV: S1-S2, irregular irregular, tachycardic Abdomen: Soft, nontender, nondistended Extremities: Trace pretibial edema Neuro: No focal deficits Psych: Cooperative, normal mood Results & Data Results & Data Vital Signs (Past 12 Hours) Vital Signs Temp Pulse Pulse Resp BP BP BP 04/27/24 10:59 37.1 C 107 H 16 125/87 04/27/24 10:29 04/27/24 10:02 98 H 18 125/87 04/27/24 09:46 90 20 113/79 04/27/24 09:45 37.4 C 92 H 20 115/76 04/27/24 08:00 04/27/24 08:00 04/27/24 07:58 36.7 C 111 H 16 135/88 04/27/24 07:00 138 H 04/27/24 06:50 91 H 131/81 04/27/24 06:27 132 H 129/87 04/27/24 06:10 36.8 C 132 H 18 129/87 04/27/24 03:24 36.8 C 78 18 142/88 H Pulse Ox O2 Del Method O2 Del Method 04/27/24 10:59 93 Room Air 04/27/24 10:29 Room Air 04/27/24 10:02 98 Room Air 04/27/24 09:46 96 Room Air 04/27/24 09:45 95 Room Air 04/27/24 08:00 Room Air 04/27/24 08:00 Room Air 04/27/24 07:58 94 Room Air 04/27/24 07:00 04/27/24 06:50 04/27/24 06:27 04/27/24 06:10 93 Room Air 04/27/24 03:24 93 Room Air Diagnostic Findings Reviewed imaging, laboratory and diagnostic studies. Pertinent findings as below. WBCs 14.5, improved Hemoglobin [place] 0.6 Potassium 4.3 Magnesium 2.0 Hemoglobin A1c 7.8% Personally reviewed EKG, atrial fibrillation with RVR
--- NOTE | 2024-04-27 12:00 | Cardiology Progress Note ---
Date of Service April 27, 2024 Assessment & Plan (1) PAF (paroxysmal atrial fibrillation): (2) Hypomagnesemia: (3) Edema leg: Plan 04/27/24 53-year-old male admitted secondary to pancreatitis. Paroxysmal atrial fibrillation with rapid ventricular noted earlier this admission and resolved. Spontaneously converted to sinus rhythm 04/25/2024. Echocardiogram demonstrating preserved LV systolic function, no significant valvular pathology, normal left atrial dimension. this morning patient had recurrent atrial fibrillation RVR. Transferred to PCU Started on IV diltiazem with bolus and gtt to control HR and hopefully convert to NSR. Increase metoprolol to 50 TID. If he converts to NSR with titration of beta rico, or HR's improved, may turn off dilt gtt. Electrolytes acceptable this morning. Previously was not anticoagulated due to short duration of afib on admission and known reversible causes. However, now with prolonged episodes of Afib and CHADSSVASC score of 2, recommend initiation of Eliquis 5 mg BID. Hbg stable. No history of bleeding complications Case discussed with Dr. Williamson I spent a total of 40 minutes on the date of service in preparation, delivery, and documentation of the care provided to this patient, excluding any time spent in the performance of separately billed services. Janette Glass PA-C Department of Cardiology, [facility] This chart was completed in part utilizing Speech Voice Recognition Software. Grammatical errors, random word insertions, pronoun errors, and incomplete sentences are an occasional consequence of this system due to software limitations, ambient noise, and hardware issues. Any formal questions or c oncerns about the content, text, or information contained within the body of this dictation should be directly addressed to the provider for clarification. Admission and Anticipated Discharge Date Admission Date: April 25, 2024 Supervising Physician Co-Signing Physician Notes I have reviewed the advanced practitioner's documentation on the date of service referenced in note, and I agree with, and take responsibility for the plan of care. I spent a total of [20] minutes coordinating, documenting, and providing care for this patient excluding time spent in the performance of separately billed services or time spent by another provider. 53-year-old male with hypertension, dyslipidemia, obesity, diabetes mellitus, obstructive sleep apnea CPAP noncompliance admitted with pancreatitis which has improved. Had 1 episode of atrial fibrillation at initial admission had second episode and has been in A-fib. Anticoagulation started rate control with metoprolol Metoprolol to be titrated for rate control Subjective Patient had recurrent afib with RVR this morning. Going in and out of afib all morning, now more persistent afib with variable rates. Transferred to PCU. Initially patient felt palpitations with elevated HR's, but now that HR has improved, he is feeling better. No SOB or chest pain. Abdominal pain improved. Diet being advanced. Review of Systems Review of Systems: All systems reviewed & are unremarkable except as noted in HPI & below Physical Exam Constitutional: + obese; no acute distress Respiratory: no respiratory distress and no labored breathing Auscultation: no crackles, no rales, no rhonchi and no wheezes Cardiovascular: Rate/Rhythm: + irregularly irregular Heart Sounds: normal S1 and normal S2; no murmur Vessels: radial pulses present; no JVD and no carotid bruit Extremities: + edema (+1 B/L LE edema R>L) Gastrointestinal (Abdomen): Inspection/Auscultation: abdomen not distended Percussion/Palpation: abdomen nontender and no guarding Neurologic: CN's II-XI intact bilaterally and moves all extremities; no focal motor deficits Results & Data Vital Signs (Past 12 Hours) Vital Signs Temp Pulse Pulse Resp BP BP BP 04/27/24 10:59 37.1 C 107 H 16 125/87 04/27/24 10:29 04/27/24 10:02 98 H 18 125/87 04/27/24 09:46 90 20 113/79 04/27/24 09:45 37.4 C 92 H 20 115/76 04/27/24 08:00 04/27/24 08:00 04/27/24 07:58 36.7 C 111 H 16 135/88 04/27/24 07:00 138 H 04/27/24 06:50 91 H 131/81 04/27/24 06:27 132 H 129/87 04/27/24 06:10 36.8 C 132 H 18 129/87 04/27/24 03:24 36.8 C 78 18 142/88 H Pulse Ox O2 Del Method O2 Del Method 04/27/24 10:59 93 Room Air 04/27/24 10:29 Room Air 04/27/24 10:02 98 Room Air 04/27/24 09:46 96 Room Air 04/27/24 09:45 95 Room Air 04/27/24 08:00 Room Air 04/27/24 08:00 Room Air 04/27/24 07:58 94 Room Air 04/27/24 07:00 04/27/24 06:50 04/27/24 06:27 04/27/24 06:10 93 Room Air 04/27/24 03:24 93 Room Air Laboratory Results CBC 04/27/24 Range/Units 06:03 WBC 14.56 H (4.8-10.8) K/ul RBC 3.99 L (4.70-6.10) M/uL Hgb 11.6 L (14.0-18.0) g/dl Hct 36.5 L (42.0-52.0) % Plt Count 239 (130-400) K/uL Comprehensive Metabolic Panel 04/27/24 Range/Units 06:03 Sodium 134 L (136-145) mmol/L Potassium 4.3 (3.5-5.1) mmol/L Chloride 100 (98-107) mmol/L Carbon Dioxide 28 (21-32) mmol/L BUN 12 (6-23) mg/dl Creatinine 0.77 (0.6-1.4) mg/dl Glucose 131 H (70-99(Fasting)) mg/dl Calcium 8.5 L (8.6-10.3) mg/dl Intake and Output 04/26/24 04/27/24 04/27/24 22:59 06:59 14:59 Intake Total 150 / 3011.0 670.5 / 3011.0 120 / 120 Output Total 0 / 0 Balance 150 / 2810.0 670.5 / 2810.0 120 / 120 Intake: IV 150 / 1251.0 50.5 / 1251.0 Magnesium Sulfate / D5w 1 gm In 150 / 150 100 ml @ 50 mls/hr IV Q2H YARA Rx#:[id number] Promethazine 12.5 mg In 50.5 ml 50.5 / 101.0 @ 202 mls/hr IV Q6H PRN Rx#: [id number] Oral 620 / 1760 120 / 120 Output: # Bowel Movements 0 / 0 Other: # Unmeasured Voids 2 1 Diagnostic Findings Telemetry reviewed: Afib/flutter with varialbe rates ranging 90-110 EKG reviewed from this morning 04/27 at 6:00 AM Atrial fib with RVR Medications Administered Current Inpatient Medications Acetaminophen (Acetaminophen 500 Mg Tab) 500 mg PO Q6H PRN PRN Reason: fever/pain Stop: 05/25/24 06:50 Last Admin: 04/27/24 05:38 Dose: 500 mg Apixaban (Apixaban 5 Mg Tablet) 5 mg PO BID YARA Stop: 05/27/24 11:59 Atorvastatin Calcium (Atorvastatin 10 Mg Tab) 10 mg PO DAILY YARA Stop: 05/25/24 08:59 Last Admin: 04/27/24 07:57 Dose: 10 mg Dextrose (Dextrose 50% 50 Ml Syringe) 25 - 50 ml IV UD PRN; Protocol PRN Reason: Hypoglycemia Protocol Stop: 05/25/24 08:42 Diltiazem HCl (Diltiazem Hcl 30 Mg Tab) 30 mg PO TID YARA Stop: 05/27/24 13:59 Doxycycline Hyclate (Doxycycline Hyclate 100 Mg Cap) 100 mg PO BID YARA Stop: 04/30/24 20:59 Last Admin: 04/27/24 07:57 Dose: 100 mg Duloxetine HCl (Duloxetine Hcl 20 Mg Cap) 20 mg PO HS YARA Stop: 05/25/24 20:59 Last Admin: 04/26/24 20:20 Dose: 20 mg Fluticasone/Vilanterol (Fluticasone/Vilanterol 200/25mcg 14 Puffs/Inhaler) 1 puffs INH DAILY YARA Stop: 05/25/24 08:59 Last Admin: 04/27/24 07:58 Dose: 1 puffs Glucagon (Glucagon For Inj 1 Mg Vial) 1 mg SQ UD PRN; Protocol PRN Reason: Hypoglycemia Protocol Stop: 05/25/24 08:42 Glucose (Glucose 40% Gel 15 Gm Tube) 15 - 30 gm PO UD PRN; Protocol PRN Reason: Hypoglycemia Protocol Stop: 05/25/24 08:42 Glucose (Glucose 10 Tab/Tube) 4 - 8 tab PO UD PRN; Protocol PRN Reason: Hypoglycemia Protocol Stop: 05/25/24 08:42 Promethazine HCl (Phenergan) 12.5 mg in 50.5 mls @ 202 mls/hr IV Q6H PRN PRN Reason: Nausea And Vomiting Stop: 05/25/24 06:52 Last Infusion: 04/27/24 00:02 Dose: Infused Diltiazem HCl 125 mg/ Dextrose 125 mls @ 5 mls/hr IV .Q24H [facility]; Protocol Stop: 05/27/24 08:44 Last Admin: 04/27/24 09:35 Dose: 5 mg/hr, 5 mls/hr Insulin Aspart (Insulin Aspart Per Unit Charge) 0 units SC ACHS [facility] Stop: 05/25/24 08:42 Last Admin: 04/27/24 11:56 Dose: 5 units Insulin Glargine (Lantus Per Unit Charge) 5 units SQ DAILY [facility] Stop: 05/26/24 08:59 Last Admin: 04/27/24 08:52 Dose: 5 units Lorazepam (Lorazepam 0.5 Mg Tab) 0.5 mg PO TID PRN PRN Reason: Anxiety Stop: 05/25/24 06:50 Metoprolol Tartrate (Metoprolol Tartrate 25 Mg Tab) 25 mg PO TID [facility] Stop: 05/26/24 13:59 Last Admin: 04/27/24 07:57 Dose: 25 mg Miscellaneous (Carbohydrates For Hypoglycemia ) 15 - 30 gm PO UD PRN PRN Reason: Hypoglycemia Protocol Stop: 05/25/24 08:42 Montelukast Sodium (Montelukast Sodium 10 Mg Tablet) 10 mg PO HS [facility] Stop: 05/25/24 20:59 Last Admin: 04/26/24 20:21 Dose: 10 mg Oxycodone HCl (Oxycodone Hcl Ir 5 Mg Tab (Immediate Release)) 5 - 10 mg PO QID PRN PRN Reason: Pain Stop: 05/09/24 06:52
[2024-04-27] MEDS: METOPROLOL TARTRATE 50 MG TAB PO SCH (13:13)
[2024-04-27] MEDS: dilTIAZem HCL 30 MG TAB PO SCH (13:13)
[2024-04-27] MEDS: APIXABAN 5 MG TABLET PO SCH (13:13)
--- NOTE | 2024-04-27 22:42 | Electrocardiogram Report ---
Test Reason : Blood Pressure : */* mmHG Vent. Rate : 153 BPM Atrial Rate : * BPM P-R Int : * ms QRS Dur : 82 ms QT Int : 286 ms P-R-T Axes : * -45 41 degrees QTcB Int : 456 ms Atrial fibrillation with rapid ventricular response with premature ventricular or aberrantly conducte d complexes Left axis deviation Abnormal ECG When compared with ECG of 17-Sep-2023 02:09, Atrial fibrillation has replaced Sinus rhythm Vent. rate has increased by 63 bpm Confirmed by Meño Landin ([id number]) on 04/27/2024 10:42:33 PM Referred By: REFERRED SELF Confirmed By: Meño Landin
--- NOTE | 2024-04-27 22:43 | Electrocardiogram Report ---
Test Reason : Blood Pressure : */* mmHG Vent. Rate : 120 BPM Atrial Rate : 159 BPM P-R Int : * ms QRS Dur : 88 ms QT Int : 334 ms P-R-T Axes : * 6 31 degrees QTcB Int : 472 ms Atrial fibrillation with rapid ventricular response Abnormal ECG When compared with ECG of 25-Apr-2024 06:25, Atrial fibrillation has replaced Sinus rhythm Confirmed by Meño Landin ([id number]) on 04/27/2024 10:42:48 PM Referred By: REFERRED SELF Confirmed By: Meño Landin
[2024-04-28 07:22] LABS: Hematocrit (blood only) 38.4 % (42.0-52.0); Mean Corpuscular Hemoglobin 28.6 pg (25.0-34.0); Mean Corpuscular Hgb Conc 31.3 g/dL (32.0-36.0); Mean Corpuscular Volume 91.6 fL (80.0-100.0); Mean Platelet Volume 10.2 fL (9.4-12.4); Platelet Count 258 K/uL (130-400); RDW Coefficient of Variation 13.3 % (11.5-14.5); RDW Standard Deviation 44.6 fL (36.4-46.3); Red Blood Count 4.19 M/uL (4.70-6.10)
[2024-04-28 07:36] LABS: BUN Creatinine Ratio 18.2 (10-20); Calcium 8.5 mg/dl (8.6-10.3); Creatinine Clr Calc Pharmacy 160.7 ml/min; Magnesium 1.9 mg/dl (1.7-2.4); Potassium 4.1 mmol/L (3.5-5.1)
--- NOTE | 2024-04-28 12:00 | Discharge Summary ---
Discharge Summary Date of Service April 28, 2024 Principal Dx & Hospital Course #1 = Principal Diagnosis (1) Acute pancreatitis: (2) Paroxysmal atrial fibrillation with rapid ventricular response: (3) Hypomagnesemia: (4) Morbid obesity: (5) Diabetes mellitus type 2 with complications: (6) Chronic obstructive pulmonary disease: (7) Hypertension: Plan Patient presented to the emergency room with increasing abdominal pain nausea and vomiting. In the emergency room noted to be in atrial fibrillation with rapid ventricular response as well as significant elevation in his lipase indicating pancreatitis. Patient was admitted to the hospital on a monitored unit. He was given IV diltiazem and quickly converted to sinus rhythm. GI consultation was obtained. They recommended usual care for his pancreatitis. Etiology of his pancreatitis is really indeterminate. Possibly due to IRLANDA inhibitor. He does not drink alcohol, his triglycerides are normal, and no other medications can point to that would contribute to this. His abdominal pain quickly resolved and his diet was titrated upward and he tolerated it well. Patient was seen by cardiology. Recommended that he be started on metoprolol. Echocardiogram was performed. Initially did not recommend anticoagulation due to the fact that he had just a very brief paroxysmal atrial fibrillation in the setting of pancreatitis and electrolyte abnormalities. However as he progressed through his hospitalization the patient again went to atrial fibrillation and had frequent paroxysms. He again converted to sinus rhythm with a short course of diltiazem. His metoprolol dosing was increased and he then subsequently was started on Eliquis for anticoagulation due to his paroxysms. On the day of discharge his vital signs were stable. He was tolerating his diet. Coordinate outpatient follow-up with cardiology and GI. GI is recommending possible outpatient EUS EGD. He will follow his primary care provider to manage his chronic medical issues as well. Notes For Next Care Provider Patient will need ongoing management of his COPD and diabetes Follow-up with cardiology for routine follow-up for paroxysmal atrial fibrillation Follow-up with gastroenterology For ongoing outpatient evaluation of his idiopathic pancreatitis. Medication Changes From Visit Metoprolol succinate Eliquis Cymbalta for some depression and neuropathy. Admission HPI Per Admitting Provider History obtained from patient and records. Medical history significant for hypertension, hyperlipidemia, bronchial asthma, RUPINDER/CPAP noncompliance, DM2 on oral medications, GERD, anxiety disorder. Last confinement 2013 for syncope attributed to asthmatic bronchitis. 1 month history of junky cough symptoms without unusual chest pain or SOB. Outpatient flu test positive. Patient still coughing despite completing outpatient antibiotic and steroid course. Patient has had stomach upset since starting metformin 2 weeks ago. 2 days ago, patient noted achy epigastric discomfort associated with nausea and emesis symptoms. Denies chest pain, SOB, or palpitations. Worsening symptoms last night. Patient noted to be in rapid A-fib upon arrival at the ER. IV Cardizem infusion initiated at the ER. Patient converted to NSR. Medical History as above Surgical History : Knee surgeries Family History : Gallbladder disease, DM, heart disease, mood disorder, bronchial asthma Personal/Social history : Non-smoker, occasional EtOH intake, grocery employee Admission Exam Per Admitting Provider See H&P Discharge Exam Constitutional: Alert, nontoxic, no acute distress, morbidly obese HEENT: Mucous membranes moist. Lungs: Clear to auscultation, decreased, no wheezes rales or rhonchi CV: S1-S2, regular Abdomen: Soft, nontender, nondistended Extremities: No significant edema Neuro: No focal deficits Psych: Cooperative, normal mood Updated Medication List Medication Instructions Recorded Confirmed Type albuterol sulfate 0.63 mg/3 mL 0.63 mg inhalation QID PRN 06/09/18 04/25/24 History solution for nebulization Shortness Of Breath Or Wheezing metformin 500 mg tablet 1,000 mg PO BIDM 10/18/20 04/25/24 History mometasone-formoterol HFA 200 2 inh inhalation BID 10/18/20 04/25/24 History mcg-5 mcg/actuation aerosol inhaler (Dulera) montelukast 10 mg tablet 10 mg PO HS 10/18/20 04/25/24 History albuterol sulfate 90 mcg/actuation 2 inh inhalation Q4H PRN shortness 03/28/22 04/25/24 Rx aerosol inhaler of breath or wheezing #8.5 grams atorvastatin 10 mg tablet 10 mg PO DAILY 04/25/24 04/25/24 History glipizide 5 mg tablet, extended 5 mg PO DAILY 04/25/24 04/25/24 History release 24 hr lisinopril 10 mg tablet 10 mg PO DAILY 04/25/24 04/25/24 History apixaban 5 mg tablet (Eliquis) 5 mg PO BID #60 tabs 04/28/24 Rx duloxetine 20 mg capsule,delayed 20 mg PO HS #30 caps 04/28/24 Rx release (Cymbalta) metoprolol succinate 50 mg 75 mg (1.5 x 50 mg) PO BID #90 tabs 04/28/24 Rx tablet,extended release 24 hr (Toprol XL) Hospital Stay Data Consultations 04/25/24 05:35 ED Decision to Admit Stat 04/25/24 08:43 Consult Cardiology Routine Consult Gastroenterology Routine Diagnostic Imagining Performed 04/25/24 02:55 CT Abd and Pelvis [CT abd pelvis IV con only] Stat 04/25/24 10:06 US abdomen limited Routine 04/25/24 13:08 US venous duplex leg [US venous doppler LE RT] Urgent Reviewed imaging, laboratory and diagnostic studies. Pertinent findings as below. WBCs 13.0 Hemoglobin 12.0 Platelets of 258 Sodium 135 Potassium 4.1 Creatinine 0.66 Magnesium 1.9 Venous Doppler lower extremity negative for DVT Abdominal ultrasound was nondiagnostic Echocardiogram showed normal ejection fraction 55 to 60% with some left ventricular hypertrophy, grade 1 diastolic dysfunction. I refer the you to the full report for details Blood cultures no significant growth Pending Results Patient Have Any Pending Studies at Discharge: No Discharge Instructions Given to Patient (Per Discharging Provider) You will need to follow-up with outpatient specialists as coordinated Take medications as prescribed Total Time Total Time Spent Total Time Spent (In Minutes): 32
== END 2024-04-28 13:03 | disposition home or self-care (01) | DRG 439 ==
LOC: ED 02:10 → EDINP 06:49 → SUATTDRO 06:49 → 2S 08:42 → 2W 04-26 17:18 → 2S 04-27 09:35

== ENCOUNTER 2024-11-07 12:34 | Inpatient (IN) ==
[2024-11-07 13:15] LABS: Hematocrit (blood only) 42.9 % (42.0-52.0); Hemoglobin 13.7 g/dl (14.0-18.0); Immature Granulocytes # (auto) 0.15 K/uL (0.01-0.20); Immature Granulocytes % (auto) 1.4 %; Mean Corpuscular Hemoglobin 28.7 pg (25.0-34.0); Mean Corpuscular Volume 89.7 fL (80.0-100.0); Platelet Count 211 K/uL (130-400); RDW Standard Deviation 42.0 fL (36.4-46.3); Red Blood Count 4.78 M/uL (4.70-6.10); White Blood Count 10.50 K/ul (4.8-10.8)
[2024-11-07] MEDS: guaiFENesin 600 MG TABCR PO STA (13:15)
[2024-11-07] MEDS: ALBUT/IPRATROP 3MG/0.5MG NEB 3 ML VIAL NEB ONE (13:17)
--- NOTE | 2024-11-07 13:28 | XRay Report ---
XR chest 1V portable CLINICAL HISTORY: Chest pain, nonspecific COMPARISON STUDY: 07/19/2024 FINDINGS: Heart size and pulmonary vasculature are normal. No consolidation or pleural effusion. No p neumothorax. IMPRESSION: No acute findings. ACT 112: Negative or not required by law. Electronically signed by: Henry Posada M.D. 11/07/2024 1:27 PM
[2024-11-07 13:32] LABS: Base Excess VBG 1.2 mEq/L; HCO3 VBG 27 mmol/L; Oxygen Saturation VBG 95.7 %; PCO2 VBG 44 mmHg (38-50); PO2 VBG 69 mmHg; pH VBG 7.39 (7.36-7.41)
--- NOTE | 2024-11-07 13:34 | Emergency Department Note ---
Impression & Plan Acute respiratory failure, Hypomagnesemia, COPD (chronic obstructive pulmonary disease), Atrial flutter with rapid ventricular response, Rhinovirus infection ED Provider Note NAME: MIRACLE BELLO AGE: 54 SEX: M : 1970 ARRIVES VIA: Walk-In INFORMANT: Patient ED PROVIDER(S): Arvin Chinchilla MD CHIEF COMPLAINT: Shortness of PLAN: Disposition: Admit MEDICAL DECISION MAKING: The patient is a 54-year-old gentleman with a past medical history of COPD, paroxysmal atrial flutter who presents emergency department for evaluation of worsening cough, congestion over the past week with acute worsening shortness of breath over the past 24 hours. Patient reports that he has been off his medication for several months due to lack of insurance and cost. However, he was admitted to this facility in July of this year where it was documented that he similarly had issues with insurance and cost of medications and had been noncompliant with medications. Patient denies fevers. He has had white productive sputum. He admits that he has had continued weight gain with lower extremity swelling. On evaluation the patient is moderate respiratory distress with increased work of breathing with wheezes and rails of bilateral lung field. He appears hypervolemic with abdominal anasarca and 2+ bilateral lower extremity pitting edema. Given the patient's presentation which is suggestive of component of bronchospasm and volume overload treatment was initiated with BiPAP as well as Solu-Medrol, guaifenesin and hour-long DuoNeb. Unfortunately, the patient became nauseated and had taken his mask off and had vomited. Thus, further BiPAP deferred and DuoNeb continued. Patient did show improvement in his respiratory status subsequently. However, the patient then did develop atrial flutter with RVR to the 180s-200s. He reported chest pressure with this. His respiratory status also worsened with return of rales and wheezing. DuoNeb was discontinued due to the patient's tachycardia. Nausea was improved following IV famotidine and Zofran and so BiPAP resumed with improvement in work of breathing. HR with some improvement to the 160s-170s. Patient was administered 5mg IV Lopressor x 2 which improvement in heart rate to 130s. Patient then did develop severe abdominal pain and cramping which she reports has happened before and was determined to be "cramps". Patient became increasingly agitated and belligerent cursing at staff. He was subsequent treated with IM dicyclomine with improvement in his abdominal spasm. He was additionally given IV Ativan for anxiolysis and HR subsequently did improve to the 100s. EKG without overt acute ischemia. CXR negative for acute cardiopulmonary process per my personal preliminary review/interpretation. WBC, platelets within normal limits. H/H similar to prior. VBG unremarkable. Chemistry without metabolic acidosis. Magnesium 1.6 with IV repletion provided. Total bili 1.2 and AST 46, nonspecific with LFTs otherwise normal. High- sensitivity troponin 4.4, within normal limits. BNP is not elevated though in the setting of patient's obesity. Lactate is normal. Procalcitonin is not elevated. TSH is normal limits. Respiratory BioFire did result positive for enterovirus/rhinovirus. Case was discussed with Coby Marti, with Coby Nicolas who will evaluate the patient for admission. Further management per admitting team. Triage Nursing notes reviewed and agree them. Prior/external medical records reviewed Vital Signs: reviewed Differential diagnosis: Reactive airway disease, pneumonia, pneumothorax, COPD, CHF, infections, cardiac ischemia, pulmonary embolism, musculoskeletal, gastrointestinal, as well as other pathologies. ER treatment provided: See below. Diagnostics interpreted by me: ECG 1244: Sinus tachycardia, 127 bpm, no ectopy, no overt ST elevation or depression, QTc 445, QRS 84. ECG 1414: Atrial flutter with RVR variable AV block, 164 bpm, nonspecific ST and T wave abnormality, no overt ST elevation or depression, QTC 515, QRS 95. Cardiac Monitoring: An order for continuous cardiac monitoring was placed and demonstrated Atrial flutter with RVR variable AV block, 164 bpm Laboratory studies: See below Imaging studies: See below Consultation(s): Coby Marti PAC, with Coby Nicolas HPI: Per MDM. ROS: See above HPI for pertinent positives & negatives. A total of 10 systems reviewed and were otherwise negative. VITALS:See Below PHYSICAL EXAMINATION: GENERAL: Awake, alert, moderate respiratory distress HENT: Normocephalic, atraumatic. Oropharynx unremarkable. EYES: Normal conjunctiva. Sclera non-icteric. NECK: Supple. No nuchal rigidity. FROM. No JVD. RESPIRATORY: Wheezing rales of bilateral lung garces with increased work of breathing. CARDIAC: Regular rate, normal rhythm. Extremities warm and well perfused. Pulses equal. ABDOMEN: Soft, non-distended. Abdominal anasarca. No tenderness to palpation. No rebound or guarding. No masses. MUSCULOSKELETAL: Chest examination reveals no tenderness. The back is symmetrical on inspection without obvious abnormality. There is no CVA tenderness to palpation. No joint edema. LOWER EXTREMITIES: Calves are equal size bilaterally and non-tender. 2+ BLE pitting edema. No discoloration. NEURO: Normal sensorium. No sensory or motor deficits noted. SKIN: No rash or jaundice noted. ED COURSE: Critical Care: I have personally spent greater than 35 minutes of critical care time in the direct management of this patient. This includes bedside care, interpretation of diagnostic studies, and testing, discussion with consultants, patient, and family members, and other required patient management activities. This 35 minutes is in excess of all separately billable procedures. Arvin Chinchilla MD Past Med/Surg History Problem List (Updated 11/08/24 @ 01:37 by Arvin Chinchilla MD) Rhinovirus infection (Acute) Atrial flutter with rapid ventricular response (Acute) COPD (chronic obstructive pulmonary disease) (Acute) Acute respiratory failure (Acute) Viral URI Atrial fibrillation with RVR (Acute) Asthma with exacerbation (Acute) Hypomagnesemia (Acute) Medical History Diabetes mellitus type 2 with complications Chronic obstructive pulmonary disease Morbid obesity Dyslipidemia Hypertension Family History Other Family history non-contributory Social History Smoking Status: Never smoker Second Hand Exposure: No; Do You Dip or Chew Tobacco: No; Hx Alcohol Use: No Hx Substance Use: No Preferred Language: Japanese Communication Ability: Effective Contact Lens Blocker And Cutter Required: No Beliefs That Will Affect Care: None Current Living Situation: Alone Other Information That Helps Us Care for You: No Feels Safe at Home: Yes Safety Concerns: Feels Safe At This Time Assistive Devices: None Allergies Allergies Allergy/AdvReac Type Severity Reaction Status Date / Time [id number] Reductase Allergy Severe Pancreatiti Verified 11/07/24 14:56 Inhibitor s lisinopril AdvReac Severe pancreatiti Verified 11/07/24 14:56 s aspirin AdvReac Intermediate Gastrointestinal Verified 11/07/24 14:56 Upset morphine AdvReac Intermediate "FLIP OUT" Verified 11/07/24 14:56 Home Meds Home Medications Medication Instructions Recorded Confirmed montelukast 10 mg tablet 10 mg PO HS 10/18/20 11/07/24 ipratropium 0.5 mg-albuterol 3 mg 3 ml inhalation Q4H PRN 07/19/24 11/07/24 (2.5 mg base)/3 mL nebulization sob/wheezing soln duloxetine 20 mg capsule,delayed 20 mg PO HS 11/07/24 11/07/24 release Previous Rx's Medication Instructions Recorded albuterol sulfate 90 mcg/actuation 2 inh inhalation Q4H PRN shortness 03/28/22 aerosol inhaler of breath or wheezing #8.5 grams apixaban 5 mg tablet (Eliquis) 5 mg PO BID #60 tabs 07/22/24 atorvastatin 10 mg tablet 10 mg PO QAM #30 tabs 07/22/24 cyclobenzaprine 10 mg tablet 10 mg PO BID PRN Muscle Spasm #30 07/22/24 tabs empagliflozin 25 mg tablet 25 mg PO QAM #30 tabs 07/22/24 (Jardiance) glipizide 5 mg tablet, extended 5 mg PO QAM #30 tabs 07/22/24 release 24 hr metformin 500 mg tablet 1,000 mg (2 x 500 mg) PO BIDM #60 07/22/24 tabs metoprolol succinate 50 mg 75 mg (1.5 x 50 mg) PO BID #90 tabs 07/22/24 tablet,extended release 24 hr (Toprol XL) mometasone-formoterol HFA 200 2 inh inhalation BID #1 g 07/22/24 mcg-5 mcg/actuation aerosol inhaler (Dulera) prednisone 20 mg tablet 20 mg PO DAILY #2 tabs 07/22/24 Results & Data (ED) Vital Signs Vital Signs - 24 hr 11/07/24 12:36 11/07/24 13:06 11/07/24 13:30 Temperature 36.3 C L Temperature Source Temporal Artery Scan Pulse Rate 95 H 102 H 120 H Pulse Rate [Apical] Pulse Rate from SpO2 Sensor Respiratory Rate 22 22 Respiratory Effort / Characteristics Non-Labored Spontaneous Respiratory Depth Normal Respiratory Pattern Blood Pressure 146/89 H 154/105 H Blood Pressure Mean 108 123 Blood Pressure Position Sitting Pulse Oximetry 93 98 Oxygen Delivery Method Room Air Fraction of Inspired Oxygen Sepsis Recent Fever Within 48 Hours No Sepsis New/Unexplained Change in Mental Status No Sepsis Action Taken by Nursing No Action Required 11/07/24 13:43 11/07/24 13:53 11/07/24 14:03 Temperature Temperature Source Pulse Rate 175 H 181 H Pulse Rate [Apical] 106 H Pulse Rate from SpO2 Sensor 191 H Respiratory Rate 28 H 16 Respiratory Effort / Characteristics Spontaneous Respiratory Depth Respiratory Pattern Blood Pressure 138/111 H Blood Pressure Mean 120 Blood Pressure Position Pulse Oximetry 92 92 Oxygen Delivery Method Room Air Fraction of Inspired Oxygen Sepsis Recent Fever Within 48 Hours Sepsis New/Unexplained Change in Mental Status Sepsis Action Taken by Nursing 11/07/24 14:12 11/07/24 14:13 11/07/24 14:28 Temperature Temperature Source Pulse Rate 177 H 178 H 151 H Pulse Rate [Apical] Pulse Rate from SpO2 Sensor Respiratory Rate 20 Respiratory Effort / Characteristics Spontaneous Respiratory Depth Respiratory Pattern Regular Blood Pressure 138/111 H 136/116 H Blood Pressure Mean Blood Pressure Position Pulse Oximetry 99 Oxygen Delivery Method Fraction of Inspired Oxygen 21 Sepsis Recent Fever Within 48 Hours Sepsis New/Unexplained Change in Mental Status Sepsis Action Taken by Nursing 11/07/24 14:31 11/07/24 14:34 11/07/24 14:42 Temperature Temperature Source Pulse Rate 151 H 178 H 153 H Pulse Rate [Apical] Pulse Rate from SpO2 Sensor 145 H Respiratory Rate 26 H 31 H Respiratory Effort / Characteristics Respiratory Depth Respiratory Pattern Blood Pressure 136/116 H 138/111 H Blood Pressure Mean 118 Blood Pressure Position Pulse Oximetry 96 96 Oxygen Delivery Method Room Air Fraction of Inspired Oxygen Sepsis Recent Fever Within 48 Hours Sepsis New/Unexplained Change in Mental Status Sepsis Action Taken by Nursing 11/07/24 14:49 11/07/24 14:51 11/07/24 14:54 Temperature Temperature Source Pulse Rate 106 H 100 H Pulse Rate [Apical] 103 H Pulse Rate from SpO2 Sensor 102 H Respiratory Rate 25 H Respiratory Effort / Characteristics Respiratory Depth Respiratory Pattern Blood Pressure 118/83 Blood Pressure Mean Blood Pressure Position Pulse Oximetry 88 L Oxygen Delivery Method Room Air Fraction of Inspired Oxygen Sepsis Recent Fever Within 48 Hours Sepsis New/Unexplained Change in Mental Status Sepsis Action Taken by Nursing 11/07/24 15:00 11/07/24 15:03 Temperature Temperature Source Pulse Rate 106 H Pulse Rate [Apical] Pulse Rate from SpO2 Sensor 106 H Respiratory Rate 18 Respiratory Effort / Characteristics Respiratory Depth Respiratory Pattern Blood Pressure 118/83 Blood Pressure Mean 91 Blood Pressure Position Pulse Oximetry 88 L Oxygen Delivery Method Room Air Fraction of Inspired Oxygen Sepsis Recent Fever Within 48 Hours Sepsis New/Unexplained Change in Mental Status Sepsis Action Taken by Nursing Laboratory Data Attestation: I reviewed the patient's lab results. 11/07/24 12:55 11/07/24 12:55 Lab Results 11/07/24 11/07/24 11/07/24 Range/Units 12:55 13:21 13:29 WBC 10.50 (4.8-10.8) K/ul RBC 4.78 (4.70-6.10) M/uL Hgb 13.7 L (14.0-18.0) g/dl POC Hgb 15.3 (14.0-18.0) g/dl Hct 42.9 (42.0-52.0) % POC Hct 45 (42-52) % MCV 89.7 (80.0-100.0) fL MCH 28.7 (25.0-34.0) pg MCHC 31.9 L (32.0-36.0) g/dL RDW Std Deviation 42.0 (36.4-46.3) fL RDW Coeff of Iraj 12.8 (11.5-14.5) % Plt Count 211 (130-400) K/uL MPV 10.6 (9.4-12.4) fL Immature Gran % (Auto) 1.4 % Neut % (Auto) 61.5 % Lymph % (Auto) 23.3 % Mcpherson % (Auto) 8.5 % Eos % (Auto) 4.7 % Baso % (Auto) 0.6 % Neut # (Auto) 6.46 (1.40-6.50) K/uL Lymph # (Auto) 2.45 (1.20-3.40) K/uL Mcpherson # (Auto) 0.89 H (0.11-0.59) K/uL Eos # (Auto) 0.49 (0.00-0.50) K/uL Baso # (Auto) 0.06 (0.00-0.20) K/uL Immature Gran # (Auto) 0.15 (0.01-0.20) K/uL PT 10.6 (9.0-12.0) Seconds INR 1.0 (0.9-1.1) APTT 27 (21-31) Seconds PTT Ratio 1.0 VBG pH 7.39 (7.36-7.41) VBG pCO2 44 (38-50) mmHg VBG pO2 69 mmHg VBG HCO3 27 mmol/L VBG O2 Saturation 95.7 % VBG Base Excess 1.2 mEq/L POC Sodium 138 (135-144) mmol/L Sodium 137 (136-145) mmol/L POC Potassium 3.9 (3.3-5.0) mmol/L Potassium 4.0 (3.5-5.1) mmol/L POC Chloride 101 (101-112) mmol/L Chloride 101 (98-107) mmol/L Carbon Dioxide 27 (21-32) mmol/L POC Total CO2 25 (24-31) mmol/L Anion Gap 9 (3-11) POC Anion Gap 17.0 (16-25) mmol/L POC BUN 13 (7-18) mg/dl BUN 12 (6-23) mg/dl Creatinine 0.67 (0.6-1.4) mg/dl POC Creatinine 0.8 (0.6-1.3) mg/dl Est Cr Clr Drug Dosing 179.1 ml/min eGFR 110.27 BUN/Creatinine Ratio 17.9 (10-20) Glucose 136 H (70-99(Fasting)) mg/dl POC Glucose (other) 135 H (70-99) mg/dl Calcium 9.1 (8.6-10.3) mg/dl POC Ioniz Calcium Liliane 1.18 (1.12-1.32) mmol/l Phosphorus 3.1 (2.5-4.9) mg/dl Magnesium 1.6 L (1.7-2.4) mg/dl Total Bilirubin 1.2 H (0.2-1.0) mg/dl AST 46 H (13-39) U/L ALT 39 (7-52) U/L Alkaline Phosphatase 91 (34-104) U/L Troponin I High Sens 4.4 (0-20) pg/ml B-Natriuretic Peptide 9 (0-100) pg/ml Total Protein 7.3 (6.0-8.3) gm/dl Albumin 4.2 (3.4-5.0) gm/dl Globulin 3.1 (2.5-4.0) gm/dl Albumin/Globulin Ratio 1.4 (0.9-2) Lipase 43 (11-82) U/L Procalcitonin 0.11 (0-0.5) ng/ml TSH 2.651 (0.300-4.500) uIu/ml Adenovirus (PCR) Not Detected (NotDetected) B. pertussis DNA (PCR) Not Detected (NotDetected) B.parapertussis DNA PCR Not Detected (NotDetected) C. pneumoniae DNA (PCR) Not Detected (NotDetected) Coronavirus OC43 (PCR) Not Detected (NotDetected) Coronavirus HKU1 (PCR) Not Detected (NotDetected) Coronavirus 229E (PCR) Not Detected (NotDetected) SARS-CoV-2 (PCR) Not Detected (NotDetected) Coronavirus NL63 (PCR) Not Detected (NotDetected) Human Metapneumovir PCR Not Detected (NotDetected) Influenza Type A (PCR) Not Detected (NotDetected) Influenza Type B (PCR) Not Detected (NotDetected) M. pneumoniae (PCR) Not Detected (NotDetected) Parainfluenza 1 (PCR) Not Detected (NotDetected) Parainfluenza 2 (PCR) Not Detected (NotDetected) Parainfluenza 3 (PCR) Not Detected (NotDetected) Parainfluenza 4 (PCR) Not Detected (NotDetected) RSV (PCR) Not Detected (NotDetected) Entero/Rhino (PCR) DETECTED A (NotDetected) Administered Medications Heparin Sodium/Dextrose (Heparin 97346 Unit/500 Ml D5w) 25,000 units in 500 mls @ 24 mls/hr IV .[id number] [facility]; Protocol Stop: 12/07/24 15:44 Last Titration: 11/07/24 23:55 Dose: 1,200 units/hr, 24 mls/hr Documented By: [facility] Co-signed By: [facility] Titration: 11/07/24 18:54 Dose: 1,000 units/hr, 20 mls/hr Documented By: DOMINGUEZ Co-signed By: KEENA Admin: 11/07/24 16:25 Dose: 1,000 units/hr, 20 mls/hr Documented By: Co-signed By: CLAUDIA Methylprednisolone 40 mg/ (Syringe) 0.64 mls @ 1.5 mls/min IV Q8 YARA Stop: 12/07/24 21:59 Last Admin: 11/07/24 23:05 Dose: 1.5 mls/min Documented By: DOMINGUEZ Insulin Aspart (Insulin Aspart Per Unit Charge) 0 units SC ACHS YARA Stop: 12/07/24 18:13 Last Admin: 11/07/24 20:50 Dose: 12 units Documented By: DOMINGUEZ Co-signed By: JANET Admin: 11/07/24 18:41 Dose: 3 units Documented By: KEENA Co-signed By: [facility] Insulin Aspart (Insulin Aspart Per Unit Charge) 0 units SC TODAY@0000,0400 [facility] Stop: 12/08/24 00:00 Last Admin: 11/08/24 00:05 Dose: 4 units Documented By: DOMINGUEZ Co-signed By: NAN Insulin Glargine (Lantus Per Unit Charge) 10 units SC HS [facility] Stop: 12/07/24 20:59 Last Admin: 11/07/24 20:50 Dose: 10 units Documented By: DOMINGUEZ Co-signed By: JANET Ipratropium Howell (Ipratropium Howell Neb Soln 0.02% 0.5mg/2.5ml Vial) 0.5 mg NEB Q6R YARA Stop: 12/07/24 18:59 Last Admin: 11/07/24 20:21 Dose: 0.5 mg Documented By: DANIEL Levalbuterol HCl (Levalbuterol 1.25 Mg/3 Ml Neb) 1.25 mg NEB Q6R YARA Stop: 12/07/24 18:59 Last Admin: 11/07/24 20:21 Dose: 1.25 mg Documented By: DANIEL Metoprolol Succinate (Metoprolol Succ 25mg Ext Rel Tab) 75 mg PO BID YARA Stop: 12/07/24 20:59 Last Admin: 11/07/24 22:55 Dose: 75 mg Documented By: DOMINGUEZ Montelukast Sodium (Montelukast Sodium 10 Mg Tablet) 10 mg PO HS YARA Stop: 12/07/24 20:59 Last Admin: 11/07/24 22:55 Dose: 10 mg Documented By: DOMINGUEZ Discontinued Medications Albuterol (Albut/Ipratrop 3mg/0.5mg Neb 3 Ml Vial) 12 ml NEB ONE ONE; Protocol Stop: 11/07/24 13:05 Last Admin: 11/07/24 13:17 Dose: 12 ml Documented By: FACUNDO Dicyclomine HCl (Dicyclomine Hcl 10 Mg/Ml 2 Ml Amp/Vial) 20 mg IM NOW ONE Stop: 11/07/24 14:32 Last Admin: 11/07/24 14:34 Dose: 20 mg Documented By: Famotidine (Famotidine 20mg/5ml Iv Push) Confirm Administered Dose 20 mg IV .STK-MED ONE Stop: 11/07/24 14:00 Last Admin: 11/07/24 14:02 Dose: Not Given Documented By: Furosemide (Furosemide 40 Mg/4 Ml Vial) 40 mg IV ONE ONE Stop: 11/07/24 15:24 Last Admin: 11/07/24 15:37 Dose: 40 mg Documented By: TESSIE Guaifenesin (Guaifenesin 600 Mg Tabcr) 1,200 mg PO NOW STA Stop: 11/07/24 13:05 Last Admin: 11/07/24 13:15 Dose: 1,200 mg Documented By: FACUNDO Heparin Sodium (Porcine) (Heparin Sod (Porcine) 1000 Unit/Ml) 4,000 units IV NOW ONE Stop: 11/07/24 15:38 Last Admin: 11/07/24 16:24 Dose: 4,000 units Documented By: Co-signed By: CLAUDIA Heparin Sodium (Porcine) (Heparin Sod (Porcine) 1000 Unit/Ml) 4,000 units IV NOW ONE Stop: 11/08/24 00:16 Last Admin: 11/08/24 00:16 Dose: 4,000 units Documented By: DOMINGUEZ Co-signed By: REMY Famotidine (Pepcid 20mg Iv Push) 20 mg in 5 mls @ 2.5 mls/min IV NOW STA Stop: 11/07/24 13:59 Last Admin: 11/07/24 14:01 Dose: 2.5 mls/min Documented By: Magnesium Sulfate/Dextrose (Magnesium Sulfate / D5w) 1 gm in 100 mls @ 100 mls/hr IV NOW STA Stop: 11/07/24 15:11 Last Infusion: 11/07/24 15:16 Dose: Infused Documented By: Admin: 11/07/24 14:16 Dose: 100 mls/hr Documented By: Magnesium Sulfate/Dextrose (Magnesium Sulfate / D5w) 1 gm in 100 mls @ 100 mls/hr IV NOW STA Stop: 11/07/24 16:22 Last Infusion: 11/07/24 17:19 Dose: Infused Documented By: Admin: 11/07/24 16:10 Dose: 100 mls/hr Documented By: TESSIE Insulin Glargine (Lantus Per Unit Charge) 0 units SC TODAY@0000 ONE; Protocol Stop: 11/08/24 00:01 Last Admin: 11/08/24 00:06 Dose: 15 units Documented By: DOMINGUEZ Co-signed By: NAN Lorazepam (Lorazepam 1 Mg/1 Ml Syr Ed Inj Use) 1 mg IV ONE STA Stop: 11/07/24 14:49 Last Admin: 11/07/24 14:53 Dose: 1 mg Documented By: Methylprednisolone (Methylprednisolone 125 Mg/2 Ml Vial) 125 mg IV NOW STA Stop: 11/07/24 13:05 Last Admin: 11/07/24 13:17 Dose: 125 mg Documented By: FACUNDO Metoprolol Tartrate (Metoprolol Tartrate 1 Mg/Ml Vial) 5 mg IV NOW STA Stop: 11/07/24 14:11 Last Admin: 11/07/24 14:13 Dose: 5 mg Documented By: Metoprolol Tartrate (Metoprolol Tartrate 1 Mg/Ml Vial) 5 mg IV NOW STA Stop: 11/07/24 14:25 Last Admin: 11/07/24 14:34 Dose: 5 mg Documented By: Metoprolol Tartrate (Metoprolol Tartrate 1 Mg/Ml Vial) 5 mg IV NOW STA Stop: 11/07/24 14:49 Last Admin: 11/07/24 15:39 Dose: 5 mg Documented By: TESSIE Ondansetron HCl (Ondansetron Inj 2 Mg/Ml 2 Ml Vial) Confirm Administered Dose 4 mg .ROUTE .STK-MED ONE Stop: 11/07/24 13:59 Last Admin: 11/07/24 14:01 Dose: Not Given Documented By: Ondansetron HCl (Ondansetron Inj 2 Mg/Ml 2 Ml Vial) 4 mg IV NOW STA Stop: 11/07/24 13:59 Last Admin: 11/07/24 14:01 Dose: 4 mg Documented By: MR Imaging Data Radiologist's Impression: Chest X-Ray 11/07/24 12:58 XR chest 1V portable CLINICAL HISTORY: Chest pain, nonspecific COMPARISON STUDY: 07/19/2024 FINDINGS: Heart size and pulmonary vasculature are normal. No consolidation or pleural effusion. No pneumothorax. IMPRESSION: No acute findings. ACT 112: Negative or not required by law. Electronically signed by: Henry Posada M.D. 11/07/2024 1:27 PM Discharge Plan Visit Data Chief Complaint: Flu Like Symptoms Stated Complaint: FLU ED Provider: Arvin Chinchilla Discharge Problem: Acute respiratory failure, Hypomagnesemia, COPD (chronic obstructive pulmonary disease), Atrial flutter with rapid ventricular response, Rhinovirus infection Patient Disposition: Admitted As Inpatient Condition: Serious Discharge Instructions Interventions: ED Discharge Assessment Last Done: 11/07/24 17:05 Discharge Problem: Acute respiratory failure Qualifiers: Respiratory failure complication: unspecified whether with hypoxia or hypercapnia Qualified Code(s): J96.00 - Acute respiratory failure, unspecified whether with hypoxia or hypercapnia COPD (chronic obstructive pulmonary disease) Qualifiers: COPD type: COPD with acute exacerbation Qualified Code(s): J44.1 - Chronic obstructive pulmonary disease with (acute) exacerbation
[2024-11-07 13:35] LABS: INR 1.0 (0.9-1.1); Prothrombin Time 10.6 Seconds (9.0-12.0)
[2024-11-07 13:38] LABS: Alanine Aminotransferase 39.0 U/L (7-52); Albumin Globulin Ratio 1.4 (0.9-2); Alkaline Phosphatase 91.0 U/L (34-104); Anion Gap 9.0 (3-11); Bilirubin,Total 1.2 mg/dl (0.2-1.0); Blood Urea Nitrogen 12.0 mg/dl (6-23); Calcium 9.1 mg/dl (8.6-10.3); Carbon Dioxide 27.0 mmol/L (21-32); Chloride 101.0 mmol/L (98-107); Creatinine Clr Calc Pharmacy 179.1 ml/min; Globulin 3.1 gm/dl (2.5-4.0); Glucose 136.0 mg/dl (70-99(Fasting)); Lipase 43.0 U/L (11-82); Magnesium 1.6 mg/dl (1.7-2.4); Potassium 4.0 mmol/L (3.5-5.1); Sodium 137.0 mmol/L (136-145); Total Protein 7.3 gm/dl (6.0-8.3)
[2024-11-07 13:53] LABS: Thyroid Stimulating Hormone 2.651 uIu/ml (0.300-4.500)
[2024-11-07] MEDS: ONDANSETRON INJ 2 MG/ML 2 ML VIAL ONE (14:01)
[2024-11-07] MEDS: ONDANSETRON INJ 2 MG/ML 2 ML VIAL IV STA (14:01)
[2024-11-07] MEDS: FAMOTIDINE 20MG IV PUSH 20 MG/5 ML SYR IV STA (14:01)
[2024-11-07] MEDS: FAMOTIDINE 20MG/5ML IV PUSH IV ONE (14:02)
[2024-11-07] MEDS: METOPROLOL TARTRATE 1 MG/ML VIAL IV STA ×3 (14:13→15:39)
[2024-11-07] MEDS: MAGNESIUM SULFATE / D5W 1 GM/100 ML BAG IV STA ×2 (14:16→16:10)
[2024-11-07] MEDS: DICYCLOMINE HCL 10 MG/ML 2 ML AMP/VIAL IM ONE (14:34)
[2024-11-07 14:35] LABS: Chlamydia pneumoniae PCR Not Detected (NotDetected); Coronavirus 229E PCR Not Detected (NotDetected); Coronavirus CoV-2 (COVID19)PCR Not Detected (NotDetected); Coronavirus HKU1 PCR Not Detected (NotDetected); Coronavirus NL63 PCR Not Detected (NotDetected); Coronavirus OC43PCR Not Detected (NotDetected); Human Metapneumovirus PCR Not Detected (NotDetected); Parainfluenza Virus 1 PCR Not Detected (NotDetected); Parainfluenza Virus 2 PCR Not Detected (NotDetected); Parainfluenza Virus 3 PCR Not Detected (NotDetected); Parainfluenza Virus 4 PCR Not Detected (NotDetected); Respiratory Syncytial VirusPCR Not Detected (NotDetected); Rhinovirus/Enterovirus PCR DETECTED (NotDetected)
--- NOTE | 2024-11-07 14:43 | History & Physical Report ---
Date of Service November 07, 2024 Assessment & Plan (1) Asthma with exacerbation: (2) Viral URI: (3) Chronic obstructive pulmonary disease: (4) Atrial fibrillation with RVR: (5) Diabetes mellitus type 2 with complications: (6) Dyslipidemia: (7) Hypomagnesemia: Plan 54 year old male with PMH significant for type 2 diabetes, dyslipidemia, hepatic steatosis, allergic rhinitis, moderate persistent asthma, RUPINDER, COPD, atrial fibrillation, grade 1 diastolic dysfunction, and morbid obesity who presented to the ED on 11/07/2024 with viral symptoms. Patient has not taken any of his prescription medications in at least 3 months because he did not have insurance and could not afford them. Asthma with exacerbation secondary to viral URI Patient presenting with dry cough, sore throat, SOB, wheezing CXR without acute process VBG unremarkable Labs unremarkable Biofire positive for rhino/enterovirus Received mucinex, solu-medrol, albuterol neb, and magnesium in ED Continue solu-medrol 40mg q8hr, xopenex/atrovent nebs q6hr, and dulera inhaler bid O2 supplementation to maintain sats >92% Atrial fibrillation with RVR Likely secondary to albuterol use at home and in ED Rates as high as 170-180bpm Received metoprolol tartrate 5mg IV x2 -> rates came down to 100-115s Continue metoprolol succinate Start low dose heparin drip with bolus (no eliquis for 3 months per patient) Cardiology consult in am Type 2 diabetes A1C 8.6 in Mar 2024 - recheck in am (no DM meds for 3 months per patient) BSG ACHS and SSI while inpatient Dyslipidemia Continue atorvastatin DVT Prophylaxis: Heparin gtt Code Status: FULL CODE - As per discussion at bedside with the patient. PCP: Jeison Gandhi Disposition: admit to PCU Patient seen in collaboration with Dr Nicolas. Please see addendum. I spent a total of 75 minutes coordinating, documenting and providing care for this patient excluding time spent in the performance of separately billed services or time spent by another provider/QHP. Admission and Anticipated Discharge Date Admission Date: 11/07/2024 History of Present Illness Chief Complaint: viral illness Primary Care Provider: Jeison Gandhi MD 54 year old male with PMH significant for type 2 diabetes, dyslipidemia, hepatic steatosis, allergic rhinitis, moderate persistent asthma, RUPINDER, COPD, atrial fibrillation, grade 1 diastolic dysfunction, and morbid obesity who presented to the ED on 11/07/2024 with a dry cough, sore throat, and SOB x4 days. Patient reports he got a hepatitis vaccine on Monday and started feeling sick that evening. He notes a sore throat, dry cough, and SOB with wheezing that got progressively worse until today, prompting him to seek evaluation. He used his rescue albuterol inhaler without relief. He has not had any of his prescription medications in 3 months due to inability to afford them, including Eliquis for atrial fibrillation. Denies fevers, chest pain, abdominal pain, N/V/D. Reports leg cramps. Allergies Allergy/AdvReac Type Severity Reaction Status Date / Time [id number] Reductase Allergy Severe Pancreatiti Verified 11/07/24 14:56 Inhibitor s lisinopril AdvReac Severe pancreatiti Verified 11/07/24 14:56 s aspirin AdvReac Intermediate Gastrointestinal Verified 11/07/24 14:56 Upset morphine AdvReac Intermediate "FLIP OUT" Verified 11/07/24 14:56 Home Medications Medication Instructions Recorded Confirmed Type montelukast 10 mg tablet 10 mg PO HS 10/18/20 11/07/24 History albuterol sulfate 90 mcg/actuation 2 inh inhalation Q4H PRN shortness 03/28/22 11/07/24 Rx aerosol inhaler of breath or wheezing #8.5 grams ipratropium 0.5 mg-albuterol 3 mg 3 ml inhalation Q4H PRN 07/19/24 11/07/24 History (2.5 mg base)/3 mL nebulization sob/wheezing soln apixaban 5 mg tablet (Eliquis) 5 mg PO BID #60 tabs 07/22/24 11/07/24 Rx atorvastatin 10 mg tablet 10 mg PO QAM #30 tabs 07/22/24 11/07/24 Rx cyclobenzaprine 10 mg tablet 10 mg PO BID PRN Muscle Spasm #30 07/22/24 11/07/24 Rx tabs empagliflozin 25 mg tablet 25 mg PO QAM #30 tabs 07/22/24 11/07/24 Rx (Jardiance) glipizide 5 mg tablet, extended 5 mg PO QAM #30 tabs 07/22/24 11/07/24 Rx release 24 hr metformin 500 mg tablet 1,000 mg (2 x 500 mg) PO BIDM #60 07/22/24 11/07/24 Rx tabs metoprolol succinate 50 mg 75 mg (1.5 x 50 mg) PO BID #90 tabs 07/22/24 11/07/24 Rx tablet,extended release 24 hr (Toprol XL) mometasone-formoterol HFA 200 2 inh inhalation BID #1 g 07/22/24 11/07/24 Rx mcg-5 mcg/actuation aerosol inhaler (Dulera) prednisone 20 mg tablet 20 mg PO DAILY #2 tabs 07/22/24 11/07/24 Rx duloxetine 20 mg capsule,delayed 20 mg PO HS 11/07/24 11/07/24 History release Past Med/Surg History Problem List (Updated 11/07/24 @ 15:39 by DELROY Dangelo) Viral URI Atrial fibrillation with RVR (Acute) Asthma with exacerbation (Acute) Hypomagnesemia Medical History (Updated 11/07/24 @ 15:39 by DELROY Dangelo) Diabetes mellitus type 2 with complications Chronic obstructive pulmonary disease Morbid obesity Dyslipidemia Hypertension Family History Other Family history non-contributory Social History Smoking Status: Never smoker Second Hand Exposure: No; Do You Dip or Chew Tobacco: No; Hx Alcohol Use: Yes Hx Substance Use: No Preferred Language: Telugu Communication Ability: Effective Camera Technician Required: No Beliefs That Will Affect Care: None Current Living Situation: Parent Feels Safe at Home: Yes Assistive Devices: None Review of Systems Review of Systems: All systems reviewed & are unremarkable except as noted in HPI & below Physical Exam Physical Exam: General/Psych: obese, sitting up in bed, NAD, conversing easily, on NC Head: normocephalic, atraumatic Eyes: normal inspection, PERRL, conjunctivae pink ENT: external ear and nose normal, oropharynx normal Neck: normal visual inspection, trachea midline, no thyromegaly Respiratory: normal respiratory effort, lungs diminished with expiratory wheezing, no accessory muscle use Cardiovascular: tachycardic rate and rhythm, no murmur/rub/gallop, no JVD Extremities: no cyanosis or clubbing, normal peripheral pulses, 3+ RLE edema and 2+ LLE edema Abdomen/GI: normal bowel sounds, soft, nontender Neurologic/MSK: A+Ox3, motor strength 5/5, moves all extremities Skin: normal color, warm and dry, erythema to RLE Results & Data Results & Data Vital Signs (Past 12 Hours) Vital Signs Temp Pulse Pulse Resp BP Pulse Ox O2 Del Method 11/07/24 14:34 178 H 138/111 H 11/07/24 14:13 178 H 138/111 H 11/07/24 14:12 177 H 20 99 11/07/24 14:03 181 H 16 138/111 H 92 11/07/24 13:53 175 H 11/07/24 13:43 106 H 28 H 92 Room Air 11/07/24 13:30 120 H 22 154/105 H 98 11/07/24 13:06 102 H 11/07/24 12:36 36.3 C L 95 H 22 146/89 H 93 Room Air FiO2 11/07/24 14:34 11/07/24 14:13 11/07/24 14:12 21 11/07/24 14:03 11/07/24 13:53 11/07/24 13:43 11/07/24 13:30 11/07/24 13:06 11/07/24 12:36 Laboratory Results Short CBC 11/07/24 Range/Units 12:55 WBC 10.50 (4.8-10.8) K/ul Hgb 13.7 L (14.0-18.0) g/dl Hct 42.9 (42.0-52.0) % Plt Count 211 (130-400) K/uL BMP 11/07/24 12:55 Sodium 137 Potassium 4.0 Chloride 101 Carbon Dioxide 27 BUN 12 Creatinine 0.67 Glucose 136 H Calcium 9.1 Liver Function 11/07/24 Range/Units 12:55 Total Bilirubin 1.2 H (0.2-1.0) mg/dl AST 46 H (13-39) U/L ALT 39 (7-52) U/L Alkaline Phosphatase 91 (34-104) U/L Albumin 4.2 (3.4-5.0) gm/dl I have independently reviewed and interpreted patient's admitting labs including CBC, CMP, PTT, PT/INR, mag, phos, troponin, BNP, lipase, procalcitonin, TSH Diagnostic Findings Chest X-Ray 11/07/24 12:58 XR chest 1V portable CLINICAL HISTORY: Chest pain, nonspecific COMPARISON STUDY: 07/19/2024 FINDINGS: Heart size and pulmonary vasculature are normal. No consolidation or pleural effusion. No pneumothorax. IMPRESSION: No acute findings. ACT 112: Negative or not required by law. Electronically signed by: Henry Posada M.D. 11/07/2024 1:27 PM ECG Additional Comments: I have independently reviewed and interpreted patient's admitting EKG which revealed: atrial flutter at a rate of 164bpm Code Status & VTE Plan Code Status Full Code Supervising Physician Co-Signing Physician Notes Attending addendum: The patient was seen and examined in emergency room He has been complaining of increasing shortness of breath cough and wheezing for the last few days Noted to have A-fib with RVR in the emergency room and also asthma exacerbation. Apparently he has not been taking his medication for the last 3 months as because he did not have any insurance and the medicines are too costly for him Denies any chest pain and has been feeling better since in the emergency room Upon examination Lying in bed without any acute distress Noted to have low oxygen saturation at 88 and tachycardic at 106 Chestdecreased breath sounds bilaterally with wheezing and minimal bibasilar crackles HeartS1-S2, regular Abdomendistended, soft nontender and bowel sound present Extremities1+ edema bilaterally. Minimal redness involving the left leg withou t any infection SENIOR FIELD ENGINEER- alert, awake and oriented x 3 and no focal sensory or motor deficit appreciated Admission labs, EKG and imaging studies reviewed Noted to have A-fib with RVR with a rate of 164/min and also enteral rhinovirus on BioFire Has not been taking his medication for the last 3 months Will restart his medication and IV heparin for anticoagulation now Nebulized bronchodilator and steroid for asthma exacerbation animal rides manager for discharge planning His other significant medical conditions are mentioned above and managed accordingly Agree with assessment plan as documented by DELROY Lange and take the full responsibility of care in the hospital Dr Adela Nicolas
[2024-11-07] MEDS: LORazepam 1 MG/1 ML SYR ED Inj Use IV STA (14:53)
[2024-11-07] MEDS: FUROSEMIDE 40 MG/4 ML VIAL IV ONE (15:37)
[2024-11-07] MEDS: HEPARIN SOD (PORCINE) 1000 UNIT/ML IV ONE (16:24)
[2024-11-07] MEDS: HEPARIN 25000 UNIT/500 ML D5W 25,000 UNITS/500 ML BAG IV SCH (16:25)
[2024-11-07 16:32] LABS: Partial Thromboplastin Time 27 Seconds (21-31)
[2024-11-07] MEDS ORDERED: GLUCOSE 40% GEL 15 GM TUBE PO PRN (18:14)
[2024-11-07] MEDS ORDERED: ACETAMINOPHEN 325 MG TAB PO PRN (18:14)
[2024-11-07] MEDS ORDERED: CARBOHYDRATES FOR HYPOGLYCEMIA PO PRN (18:14)
[2024-11-07] MEDS ORDERED: DEXTROSE 50% 50 ML SYRINGE IV PRN (18:14)
[2024-11-07] MEDS ORDERED: PHARMACY GLYCEMIC MGMT CONSULT PRN (18:14)
[2024-11-07] MEDS ORDERED: GLUCOSE 10 TAB/TUBE PO PRN (18:14)
[2024-11-07] MEDS ORDERED: ONDANSETRON INJ 2 MG/ML 2 ML VIAL IV PRN (18:14)
[2024-11-07] MEDS ORDERED: GLUCAGON FOR INJ 1 MG VIAL SQ PRN (18:14)
[2024-11-07] MEDS: INSULIN ASPART PER UNIT CHARGE SC SCH (18:41)
[2024-11-07] MEDS: LEVALBUTEROL 1.25 MG/3 ML NEB NEB SCH (20:21)
[2024-11-07] MEDS: IPRATROPIUM BROMIDE NEB SOLN 0.02% 0.5MG/2.5ML VIAL NEB SCH (20:21)
--- NOTE | 2024-11-07 20:34 | Pharmacy Report ---
Pharmacy Glycemic Short Note 2 - Date of Service November 07, 2024 - Glycemic Short BSG Results (Last 24 hours): 11/07/24 11/07/24 11/07/24 12:55 13:29 18:31 Glucose 136 H POC Glucose 242 H POC Glucose (other) 135 H 11/07/24 20:07 Glucose POC Glucose 288 H POC Glucose (other) OUTPATIENT ANTIDIABETIC REGIMEN: * Reportedly without medications in the past 3 months, previously on glipizide, metformin, Jardiance * A1c 8.6% 03/2024 ASSESSMENT: * Patient admitted with asthma exacerbation/viral URI. On methylprednisolone 40 mg IV q8H after receiving 125 mg x 1. * BSGs have been trending upward with initiation of steroids. Will start novolog based on adjusted body weight stress of 3, overnight checks * Will start lantus ~ weight stress 2. PLAN FOR INPATIENT GLYCEMIC CONTROL: * Hold outpatient oral diabetes medications * Basal insulin * Lantus 10 units + 10 or 15 units per scale * Bolus insulin * NovoLog per scale ACHS or Q6hrs while NPO * Goal Range: Low 120 mg/dL - High 160 mg/dL * Correction Factor: 15 mg/dL/unit * Nutritional / Prandial insulin per carb ratio of 1 unit per 5 grams CHO consumed
[2024-11-07] MEDS: LANTUS PER UNIT CHARGE SC SCH (20:50)
[2024-11-07] MEDS: METOPROLOL SUCC 25MG EXT REL TAB PO SCH (22:55)
[2024-11-07] MEDS: MONTELUKAST SODIUM 10 MG TABLET PO SCH (22:55)
[2024-11-07 22:59] LABS: Appearance Urine Clear (Clear); Glucose Urine UA 2+ (Negative)
[2024-11-07 23:33] LABS: ANTI-Xa, UFH(UnfractionatedHep 0.11 IU/ml (0.3-0.7)
[2024-11-08] MEDS: INSULIN ASPART PER UNIT CHARGE SC SCH (00:05)
[2024-11-08] MEDS: LANTUS PER UNIT CHARGE SC ONE ×2 (00:06→09:14)
[2024-11-08] MEDS: HEPARIN SOD (PORCINE) 1000 UNIT/ML IV ONE ×2 (00:16→13:51)
[2024-11-08 06:42] LABS: Hematocrit (blood only) 41.7 % (42.0-52.0); Hemoglobin 13.3 g/dl (14.0-18.0); Mean Corpuscular Hemoglobin 28.9 pg (25.0-34.0); Mean Corpuscular Volume 90.7 fL (80.0-100.0); Platelet Count 218 K/uL (130-400); RDW Standard Deviation 42.6 fL (36.4-46.3); Red Blood Count 4.60 M/uL (4.70-6.10); White Blood Count 17.78 K/ul (4.8-10.8)
[2024-11-08 07:10] LABS: ANTI-Xa, UFH(UnfractionatedHep 0.21 IU/ml (0.3-0.7)
[2024-11-08 07:14] LABS: Anion Gap 8.0 (3-11); Blood Urea Nitrogen 18.0 mg/dl (6-23); Calcium 8.7 mg/dl (8.6-10.3); Carbon Dioxide 28.0 mmol/L (21-32); Chloride 99.0 mmol/L (98-107); Creatinine Clr Calc Pharmacy 143.5 ml/min; Glucose 268.0 mg/dl (70-99(Fasting)); Magnesium 1.9 mg/dl (1.7-2.4); Potassium 4.4 mmol/L (3.5-5.1); Sodium 135.0 mmol/L (136-145)
[2024-11-08] MEDS: Heparin IV Adult Wt-Based Low-Dose w/ INITIAL Bolus Protocol IV STA (07:26)
[2024-11-08] MEDS: FLUTICASONE/VILANTEROL 200/25MCG 14 PUFFS/INHALER INH SCH (08:30)
[2024-11-08] MEDS: ATORVASTATIN 10 MG TAB PO SCH (08:31)
--- NOTE | 2024-11-08 08:41 | Cardiology Consultation ---
Date of Consultation November 08, 2024 History of Present Illness Attending Physician: Wilber Coronado DO History of Present Illness Yogi Noyola is a 54 year old male seen in cardiology consultation per the request of DELROY Marti for the evaluation of atrial fibrillation with rapid ventricular response. Patient presented to the emergency department yesterday with symptoms of dry cough, sore throat, shortness of breath of 4 days duration. Patient received hepatitis vaccine 4 days ago and after the evening he started feeling ill. He has a past history of atrial fibrillation diagnosed at time of hospitalization in April 2024 at which time he spontaneously converted back to sinus rhythm. He had been seen in posthospital cardiology follow-up on 05/20/2024 and EKG at that time documented the presence of sinus rhythm. Stable cardiac signs and symptoms were noted at that time and ongoing medication therapy including metoprolol succinate 75 mg twice daily and Eliquis 5 mg twice daily recommended patient however apparently had difficulty. With that being able to afford his prescription medications the last 3 months and therefore has not been taking them including the Eliquis. Testing thus far has yielded positive PCR test or Entero/Rhino virus. History: 1.Paroxysmal atrial fibrillation -diagnosed April, 2.Hypertension 3.Dyslipidemia 4.Hepatic steatosis 5.Obesity 6.Type 2 diabetes mellitus 7.Obstructive sleep apnea, CPAP noncompliance 8.Asthma/chronic obstructive pulmonary disease Allergies Allergy/AdvReac Type Severity Reaction Status Date / Time [id number] Reductase Allergy Severe Pancreatiti Verified 11/07/24 14:56 Inhibitor s lisinopril AdvReac Severe pancreatiti Verified 11/07/24 14:56 s aspirin AdvReac Intermediate Gastrointestinal Verified 11/07/24 14:56 Upset morphine AdvReac Intermediate "FLIP OUT" Verified 11/07/24 14:56 Home Medications Medication Instructions Recorded Confirmed Type montelukast 10 mg tablet 10 mg PO HS 10/18/20 11/07/24 History albuterol sulfate 90 mcg/actuation 2 inh inhalation Q4H PRN shortness 03/28/22 11/07/24 Rx aerosol inhaler of breath or wheezing #8.5 grams ipratropium 0.5 mg-albuterol 3 mg 3 ml inhalation Q4H PRN 07/19/24 11/07/24 History (2.5 mg base)/3 mL nebulization sob/wheezing soln apixaban 5 mg tablet (Eliquis) 5 mg PO BID #60 tabs 07/22/24 11/07/24 Rx atorvastatin 10 mg tablet 10 mg PO QAM #30 tabs 07/22/24 11/07/24 Rx cyclobenzaprine 10 mg tablet 10 mg PO BID PRN Muscle Spasm #30 07/22/24 11/07/24 Rx tabs empagliflozin 25 mg tablet 25 mg PO QAM #30 tabs 07/22/24 11/07/24 Rx (Jardiance) glipizide 5 mg tablet, extended 5 mg PO QAM #30 tabs 07/22/24 11/07/24 Rx release 24 hr metformin 500 mg tablet 1,000 mg (2 x 500 mg) PO BIDM #60 07/22/24 11/07/24 Rx tabs metoprolol succinate 50 mg 75 mg (1.5 x 50 mg) PO BID #90 tabs 07/22/24 11/07/24 Rx tablet,extended release 24 hr (Toprol XL) mometasone-formoterol HFA 200 2 inh inhalation BID #1 g 07/22/24 11/07/24 Rx mcg-5 mcg/actuation aerosol inhaler (Dulera) prednisone 20 mg tablet 20 mg PO DAILY #2 tabs 07/22/24 11/07/24 Rx duloxetine 20 mg capsule,delayed 20 mg PO HS 11/07/24 11/07/24 History release Patient History Medical History Diabetes mellitus type 2 with complications Chronic obstructive pulmonary disease Morbid obesity Dyslipidemia Hypertension Family History Other Family history non-contributory Social History Smoking Status: Never smoker Second Hand Exposure: No; Do You Dip or Chew Tobacco: No; Hx Alcohol Use: No Hx Substance Use: No Preferred Language: [place]guill[place] Communication Ability: Effective Charge Manager Required: No Beliefs That Will Affect Care: None Current Living Situation: Alone Other Information That Helps Us Care for You: No Feels Safe at Home: Yes Safety Concerns: Feels Safe At This Time Assistive Devices: None Review of Systems Review of Systems: All systems reviewed & are unremarkable except as noted in HPI & below Results & Data Vital Signs (Past 12 Hours) Vital Signs Temp Pulse Pulse Resp BP Pulse Ox O2 Del Method 11/08/24 07:27 72 16 93 Room Air 11/08/24 07:24 36.5 C 74 20 126/71 95 Room Air 11/08/24 03:32 37.0 C 67 17 114/61 91 Room Air 11/08/24 01:55 87 18 85 L Room Air 11/07/24 23:15 36.6 C 86 18 135/88 92 Room Air 11/07/24 22:57 90 Laboratory Results Cardiac Enzymes 11/07/24 Range/Units 12:55 AST 46 H (13-39) U/L Troponin I High Sens 4.4 (0-20) pg/ml B-Natriuretic Peptide 9 (0-100) pg/ml Coagulation 11/07/24 Range/Units 12:55 PT 10.6 (9.0-12.0) Seconds APTT 27 (21-31) Seconds B-Natriuretic Peptide 9 (0-100) pg/ml CBC 11/07/24 11/08/24 Range/Units 12:55 06:17 WBC 10.50 17.78 H (4.8-10.8) K/ul RBC 4.78 4.60 L (4.70-6.10) M/uL Hgb 13.7 L 13.3 L (14.0-18.0) g/dl Hct 42.9 41.7 L (42.0-52.0) % Plt Count 211 218 (130-400) K/uL Neut # (Auto) 6.46 (1.40-6.50) K/uL Lymph # (Auto) 2.45 (1.20-3.40) K/uL [place] # (Auto) 0.89 H (0.11-0.59) K/uL Eos # (Auto) 0.49 (0.00-0.50) K/uL Baso # (Auto) 0.06 (0.00-0.20) K/uL Comprehensive Metabolic Panel 11/07/24 11/08/24 Range/Units 12:55 06:17 Sodium 137 135 L (136-145) mmol/L Potassium 4.0 4.4 (3.5-5.1) mmol/L Chloride 101 99 (98-107) mmol/L Carbon Dioxide 27 28 (21-32) mmol/L BUN 12 18 (6-23) mg/dl Creatinine 0.67 0.85 (0.6-1.4) mg/dl Glucose 136 H 268 H (70-99(Fasting)) mg/dl Calcium 9.1 8.7 (8.6-10.3) mg/dl AST 46 H (13-39) U/L ALT 39 (7-52) U/L Alkaline Phosphatase 91 (34-104) U/L Total Protein 7.3 (6.0-8.3) gm/dl Albumin 4.2 (3.4-5.0) gm/dl Intake and Output 11/07/24 11/08/24 11/08/24 22:59 06:59 14:59 Intake Total 749.667 / 1000.000 250.333 / 1000.000 176.8 / 176.8 Output Total 400 / 400 Balance 349.667 / 600.000 250.333 / 600.000 176.8 / 176.8 Intake: IV 249.667 / 350.000 100.333 / 350.000 176.8 / 176.8 Heparin 44216 Unit/500 ml D5w 49.667 / 150.000 100.333 / 150.000 176.8 / 176.8 25,000 units In 500 ml @ 1,200 UNITS/HR 24 mls/hr IV .[id number] [facility] Rx#:[id number] Magnesium Sulfate / D5w 1 gm In 200 / 200 100 ml @ 100 mls/hr IV NOW STA Rx#:[id number] Oral 500 / 650 150 / 650 Output: Urine 400 / 400 Other: # Unmeasured Voids 1 Weight 148.1 kg 152.2 kg Weight Measurement Method Built in [facility] Diagnostic Findings EKG performed 11/07/2024 at 12:44 PM and interpreted independently revealed sinus tachycardia 107 bpm. Repeat tracing performed 11/07/2024 at 1414 and interpret independently: Atrial fibrillation/flutter 164 bpm with nonspecific repolarization abnormalities Transthoracic echocardiogram performed 04/25/2024 revealed mild concentric left ventricular hypertrophy Normal left atrial size Grade 1 diastolic dysfunction Trace tricuspid regurgitation LVEF in the range of 55 to 60% (normal). Coding
[2024-11-08 08:44] LABS: Hemoglobin A1C 8.4 % (4.5-5.6)
[2024-11-08] MEDS: LEVALBUTEROL 1.25 MG/3 ML NEB NEB SCH (08:50)
--- NOTE | 2024-11-08 11:51 | Hospitalist Progress Note ---
<Statement entered by Wilber Coronado, - 11/08/24 16:57> I was available to [place] See below for details Date of Service November 08, 2024 Assessment & Plan (1) Asthma with exacerbation: (2) Viral URI: (3) Chronic obstructive pulmonary disease: (4) Atrial fibrillation with RVR: (5) Diabetes mellitus type 2 with complications: (6) Dyslipidemia: (7) Hypomagnesemia: Plan 54 year old male with PMH significant for type 2 diabetes, dyslipidemia, hepatic steatosis, allergic rhinitis, moderate persistent asthma, RUPINDER, COPD, atrial fibrillation, grade 1 diastolic dysfunction, and morbid obesity who presented to the ED on 11/07/2024 with viral symptoms. Patient has not taken any of his prescription medications in at least 3 months because he did not have insurance and could not afford them. Asthma with exacerbation secondary to rhino/enterovirus infection Patient presenting with dry cough, sore throat, SOB, wheezing CXR without acute process VBG unremarkable Biofire positive for rhino/enterovirus Received mucinex, solu-medrol, albuterol neb, and magnesium in ED Solu-Medrol 40 mg q8h -> 40mg q12h today -> plan for prednisone 20mg daily tomorrow Continue nebs, Breo, Singulair Saturating well on room air Atrial fibrillation with RVR, resolved Converted to NSR Likely secondary to albuterol use, acute illness, and missed home metoprolol Received metoprolol tartrate 5mg IV x2 -> rates came down to 100-115s Continue prior metoprolol succinate dosing 75mg BID Currently on IV heparin while investigating oral anticoagulation cost Cardiology consult will be cancelled Type 2 diabetes A1C 8.6 in Mar 2024 -> 8.4 (no DM meds for 3 months per patient) BSG ACHS and SSI while inpatient Cost of metformin, glipizide, and Jardiance being investigated Dyslipidemia Continue atorvastatin DVT Prophylaxis: Heparin gtt Code Status: FULL CODE PCP: Jeison Gandhi Disposition: anticipate discharge home once medically stable, likely tomorrow. Investigating costs of previous home meds. Patient seen in collaboration with Dr. Coronado. I spent a total of 45 minutes coordinating, documenting, and providing care for this patient excluding time spent in the performance of separately billed services. This included personally reviewing all current laboratories and imaging studies, medication reconciliation, outpatient chart review, and discussion with specialists. Admission and Anticipated Discharge Date Admission Date: November 07, 2024 Subjective Follow-up for asthma exacerbation secondary to rhino/enterovirus, atrial fibrillation with RVR. Patient seen and examined. Sitting up on the edge of the bed. Reports he is feeling much improved from yesterday. Currently on room air. Denies chest pain, shortness of breath, palpitations. No abdominal pain or nausea. Physical Exam Constitutional: WD/WN, vitals as above + obese; no acute distress Respiratory: Auscultation: + diminished lung sounds; no wheezes Cardiovascular: Rate/Rhythm: regular rate and regular rhythm Vessels: normal peripheral pulses Extremities: no edema Skin: no rashes, warm and dry Neurologic: no focal motor deficits Psychiatric: A+Ox3, euthymic affect Results & Data Results & Data Vital Signs (Past 12 Hours) Vital Signs Temp Pulse Resp BP Pulse Ox O2 Del Method 11/08/24 10:40 37.0 C 20 141/80 H 93 Room Air 11/08/24 08:49 Room Air 11/08/24 07:27 72 16 93 Room Air 11/08/24 07:24 36.5 C 74 20 126/71 95 Room Air 11/08/24 03:32 37.0 C 67 17 114/61 91 Room Air 11/08/24 01:55 87 18 85 L Room Air Laboratory Results Short CBC 11/07/24 11/08/24 Range/Units 12:55 06:17 WBC 10.50 17.78 H (4.8-10.8) K/ul Hgb 13.7 L 13.3 L (14.0-18.0) g/dl Hct 42.9 41.7 L (42.0-52.0) % Plt Count 211 218 (130-400) K/uL BMP 11/07/24 11/08/24 12:55 06:17 Sodium 137 135 L Potassium 4.0 4.4 Chloride 101 99 Carbon Dioxide 27 28 BUN 12 18 Creatinine 0.67 0.85 Glucose 136 H 268 H Calcium 9.1 8.7 Liver Function 11/07/24 Range/Units 12:55 Total Bilirubin 1.2 H (0.2-1.0) mg/dl AST 46 H (13-39) U/L ALT 39 (7-52) U/L Alkaline Phosphatase 91 (34-104) U/L Albumin 4.2 (3.4-5.0) gm/dl Urine 11/07/24 Range/Units 22:50 Urine Color Yellow Urine Appearance Clear (Clear) Urine pH 5.0 (4.5-7.5) Ur Specific [place] 1.018 (1.000-1.030) Urine Protein Negative (Negative) Urine Glucose (UA) 2+ H (Negative) Diagnostic Findings Short CBC 11/07/24 11/08/24 Range/Units 12:55 06:17 WBC 10.50 17.78 H (4.8-10.8) K/ul Hgb 13.7 L 13.3 L (14.0-18.0) g/dl Hct 42.9 41.7 L (42.0-52.0) % Plt Count 211 218 (130-400) K/uL [facility] 11/07/24 11/08/24 12:55 06:17 Sodium 137 135 L Potassium 4.0 4.4 Chloride 101 99 Carbon Dioxide 27 28 BUN 12 18 Creatinine 0.67 0.85 Glucose 136 H 268 H Calcium 9.1 8.7 Liver Function 11/07/24 Range/Units 12:55 Total Bilirubin 1.2 H (0.2-1.0) mg/dl AST 46 H (13-39) U/L ALT 39 (7-52) U/L Alkaline Phosphatase 91 (34-104) U/L Albumin 4.2 (3.4-5.0) gm/dl Urine 11/07/24 Range/Units 22:50 Urine Color Yellow Urine Appearance Clear (Clear) Urine pH 5.0 (4.5-7.5) Ur Specific [place] 1.018 (1.000-1.030) Urine Protein Negative (Negative) Urine Glucose (UA) 2+ H (Negative)
--- NOTE | 2024-11-08 12:18 | Communication Note ---
Date of Service: November 08, [address] Coronado. Patient converted from atrial fibrillation , back to sinus rhythm on 11/07/24 at 14:44 and has remained in sinus rhythm. Recommend ongoing treatment with metoprolol and anticoagulation. Supportive care for viral respiratory illness. Cardiology consultation determined no longer indicated and the request was cancelled. Vladimir Iniguez DO
--- NOTE | 2024-11-08 12:58 | Pharmacy Report ---
Pharmacy Glycemic Short Note 2 - Date of Service November 08, 2024 - Glycemic Short BSG Results (Last 24 hours): 11/07/24 11/07/24 11/07/24 12:55 13:29 18:31 Glucose 136 H POC Glucose 242 H POC Glucose (other) 135 H 11/07/24 11/08/24 11/08/24 20:07 00:00 03:30 Glucose POC Glucose 288 H 259 H 240 H POC Glucose (other) 11/08/24 11/08/24 11/08/24 06:17 07:19 11:14 Glucose 268 H POC Glucose 221 H 341 H* POC Glucose (other) 11/08/24 11:19 Glucose POC Glucose 290 H POC Glucose (other) OUTPATIENT ANTIDIABETIC REGIMEN: * Reportedly without medications in the past 3 months, previously on glipizide, metformin, Jardiance * A1c 8.6% 03/2024 ASSESSMENT: * Patient admitted with asthma exacerbation/viral URI. On methylprednisolone 40 mg IV q8H after receiving 125 mg x 1. * BSGs have been trending upward with initiation of steroids. Will start novolog based on adjusted body weight stress of 3, overnight checks * Will start lantus ~ weight stress 2. 11/08: * Patient remained hyperglycemic this morning despite 25 units of total Lantus last evening and tightened NovoLog scale. Patient ate 92g and 75 g carbs with meals today. * Gave an additional weight stress of 2 lantus dose this morning and a scale for this evening. CR was also tightened at lunchtime. IV steroids were decreased to 40mg q12 today and transitioned to prednisone 20 mg daily tomorrow morning so anticipate BSGs will trend down in the next 48 hours. * Will add overnight checks again. PLAN FOR INPATIENT GLYCEMIC CONTROL: * Hold outpatient oral diabetes medications * Basal insulin * Lantus 25 units last evening * 15 units this morning * Lantus scale this evening (7 or 15 units based on BSG) * Bolus insulin * NovoLog per scale ACHS or Q6hrs while NPO * Goal Range: Low 120 mg/dL - High 160 mg/dL * Correction Factor: 15 mg/dL/unit * Nutritional / Prandial insulin per carb ratio of 1 unit per 3 grams CHO consumed
[2024-11-08 13:24] LABS: ANTI-Xa, UFH(UnfractionatedHep 0.17 IU/ml (0.3-0.7)
--- NOTE | 2024-11-08 17:34 | Communication Note ---
Date of Service: November 08, 2024 Patient called Medicaid office to obtain information regarding prescription coverage. Patient was instructed to provide Access card to pharmacy for pre scriptions. Called [facility] in [place] with Access card information - pharmacist states that all medications will be covered, including Eliquis. Will d/c heparin and transition to PO Eliquis DELROY Pozo
[2024-11-08] MEDS: APIXABAN 5 MG TABLET PO SCH (20:40)
[2024-11-08] MEDS: LANTUS PER UNIT CHARGE SC SCH (20:48)
[2024-11-09 06:07] LABS: Hematocrit (blood only) 40.8 % (42.0-52.0); Hemoglobin 13.3 g/dl (14.0-18.0); Mean Corpuscular Hemoglobin 29.8 pg (25.0-34.0); Mean Corpuscular Volume 91.5 fL (80.0-100.0); Platelet Count 245 K/uL (130-400); RDW Standard Deviation 43.0 fL (36.4-46.3); Red Blood Count 4.46 M/uL (4.70-6.10); White Blood Count 21.54 K/ul (4.8-10.8)
[2024-11-09 06:16] LABS: Anion Gap 8.0 (3-11); Blood Urea Nitrogen 26.0 mg/dl (6-23); Calcium 9.0 mg/dl (8.6-10.3); Carbon Dioxide 30.0 mmol/L (21-32); Chloride 98.0 mmol/L (98-107); Creatinine Clr Calc Pharmacy 150.7 ml/min; Glucose 257.0 mg/dl (70-99(Fasting)); Potassium 4.9 mmol/L (3.5-5.1); Sodium 136.0 mmol/L (136-145)
--- NOTE | 2024-11-09 06:19 | Electrocardiogram Report ---
Test Reason : Blood Pressure : */* mmHG Vent. Rate : 164 BPM Atrial Rate : 178 BPM P-R Int : * ms QRS Dur : 94 ms QT Int : 312 ms P-R-T Axes : * -32 38 degrees QTcB Int : 515 ms Atrial flutter with variable A-V block Left axis deviation Nonspecific ST and T wave abnormality Abnormal ECG When compared with ECG of 07-Nov-2024 12:44, (unconfirmed) Atrial flutter has replaced Sinus rhythm Vent. rate has increased by [address] now depressed in Anterolateral leads Nonspecific T wave abnormality now evident in Inferior leads Nonspecific T wave abnormality now evident in Lateral leads Confirmed by Sony Moore ([id number]) on 11/09/2024 6:18:48 AM Referred By: REFERRED SELF Confirmed By: Sony Moore
--- NOTE | 2024-11-09 06:20 | Electrocardiogram Report ---
Test Reason : Blood Pressure : */* mmHG Vent. Rate : 107 BPM Atrial Rate : 107 BPM P-R Int : 152 ms QRS Dur : 84 ms QT Int : 334 ms P-R-T Axes : 63 -25 40 degrees QTcB Int : 445 ms Sinus tachycardia Otherwise normal ECG When compared with ECG of 22-Jul-2024 08:59, Vent. rate has increased by 39 bpm Confirmed by Sony Moore ([id number]) on 11/09/2024 6:20:27 AM Referred By: REFERRED SELF Confirmed By: Sony Moore
[2024-11-09 08:15] VITALS: TEMP 98.2
[2024-11-09] MEDS: LANTUS PER UNIT CHARGE SC SCH (08:38)
[2024-11-09] MEDS: predniSONE 20 MG TAB PO SCH (08:39)
--- NOTE | 2024-11-09 10:27 | Discharge Summary ---
<Statement entered by Wilber Coronado, - 11/09/24 11:57> Patient seen and examined Feeling much better today Cough improving No SOB. For DC home today See below Date of Service November 09, 2024 Admission HPI Per Admitting Provider 54 year old male with PMH significant for type 2 diabetes, dyslipidemia, hepatic steatosis, allergic rhinitis, moderate persistent asthma, RUPINDER, COPD, atrial fibrillation, grade 1 diastolic dysfunction, and morbid obesity who presented to the ED on 11/07/2024 with a dry cough, sore throat, and SOB x4 days. Patient reports he got a hepatitis vaccine on Monday and started feeling sick that evening. He notes a sore throat, dry cough, and SOB with wheezing that got progressively worse until today, prompting him to seek evaluation. He used his rescue albuterol inhaler without relief. He has not had any of his prescription medications in 3 months due to inability to afford them, including Eliquis for atrial fibrillation. Denies fevers, chest pain, abdominal pain, N/V/D. Reports leg cramps. Admission Exam Per Admitting Provider General/Psych: obese, sitting up in bed, NAD, conversing easily, on NC Head: normocephalic, atraumatic Eyes: normal inspection, PERRL, conjunctivae pink ENT: external ear and nose normal, oropharynx normal Neck: normal visual inspection, trachea midline, no thyromegaly Respiratory: normal respiratory effort, lungs diminished with expiratory wheezing, no accessory muscle use Cardiovascular: tachycardic rate and rhythm, no murmur/rub/gallop, no JVD Extremities: no cyanosis or clubbing, normal peripheral pulses, 3+ RLE edema and 2+ LLE edema Abdomen/GI: normal bowel sounds, soft, nontender Neurologic/MSK: A+Ox3, motor strength 5/5, moves all extremities Skin: normal color, warm and dry, erythema to RLE Principal Diagnosis Asthma exacerbation Discharge Exam VITALS: Reviewed. WEIGHT/BMI reviewed. GEN: Healthy appearing, well-developed, NAD. PSYCH: Good Judgment. AOx3. Normal memory, mood, and affect. HEENT -Head: NC/AT; -Eyes: PERRL, EOMI. No discharge or redness; -Ears: External ears are normal. Normal TMs. -Nose: Normal nares. -Mouth and throat: MMM. Normal gums, mucosa, palate,. Good dentition. NECK: Supple, with no masses. CV: RRR, no m/r/g. LUNGS: CTAB, no w/r/c. NO shortness of breath. NAD on room air. ABD: Soft, NT/ND, NBS, no masses or organomegaly. : N/A SKIN: Warm, well perfused. No skin rashes or abnormal lesions. MSK: No deformities, Normal gait. EXT: No clubbing, cyanosis, or edema. NEURO: Ambulating with no limitations. Normal muscle strength and tone. No focal deficits. Discharge Data Allergies Allergy/AdvReac Type Severity Reaction Status Date / Time [id number] Reductase Allergy Severe Pancreatiti Verified 11/07/24 14:56 Inhibitor s lisinopril AdvReac Severe pancreatiti Verified 11/07/24 14:56 s aspirin AdvReac Intermediate Gastrointestinal Verified 11/07/24 14:56 Upset morphine AdvReac Intermediate "FLIP OUT" Verified 11/07/24 14:56 Consultations 11/07/24 14:39 ED Decision to Admit Stat Hospital Course (1) Asthma with exacerbation: Mr. Noyola is a 54 year old male with PMH significant for type 2 diabetes, dyslipidemia, hepatic steatosis, allergic rhinitis, moderate persistent asthma, RUPINDER, COPD, atrial fibrillation, grade 1 diastolic dysfunction, and morbid obesity who presented to the ED on 11/07/2024 with viral symptoms. Patient noted to have a history of medication nonadherence for 3 months due to financial concerns and lack of insurance. He was admitted to [facility] on 11/07 for an Asthma exacerbation secondary to rhino/enterovirus infection. He presented with dry cough, sore throat, SOB, wheezing; Rhinovirus positive on [employer]. Chest XRay negative for acute process and his VBG was unremarkable. Treatment management consisted of mucinex, solu- medrol, bronchodilators, and one tiem dose of magnesium for shortness of breath. He transitioned to oral Prednisone on 11/09 for a total of 5 day course; anticipated stop date 11/13. He is saturating well on room air with no hypoxic events. Initially, presented with Atrial fibrillation with RVR and converted to normal sinus rhythm likely secondary to albuterol use, acute illness, and missed home metoprolol. Metoprolol started for rate control. He has been off anticoagulation for 3 months and started on heparin infusion with transition to Eliquis at time of discharge. Normal sinus rhythm on tele monitor at time of discharge. Magnesium replacement when admitted to the hospital and replaced; Mag level 1.9 at time of discharge. Recommend outpatient labs with possible ongoing supplementation. For his diabetes, he was managed by sliding scale insulin while inpatient. Blood sugars remained stable with no acute hypoglycemic events. We resumed home oral anti-diabetic medications at time of discharge. May resume metformin, glipizide, and Jardiance for outpatient management. . (2) Viral URI: (3) Chronic obstructive pulmonary disease: (4) Atrial fibrillation with RVR: (5) Diabetes mellitus type 2 with complications: (6) Dyslipidemia: (7) Hypomagnesemia: Total Time Total Time Spent Total Time Spent (In Minutes): Patient seen in collaboration with Dr. Wilber Coronado. Please see addendum. I spent a total of 45 minutes coordinating, documenting and providing care for this patient excluding time spent in the performance of separately billed services or time spent by another provider/QHP. Discharge Plan Discharge Items Patient Disposition: Home - Self-Care Reason For Visit: VIRAL ILLNESS Discharge Diagnosis: Asthma exacerbation Condition on Discharge: Serious Activity: Resume your previous activity Lifting: Gradually increase as tolerated Bathing: No limitations Exercise/Sports: Gradually increase as tolerated Driving/Machine Use: No limitations Weightbearing: Full weightbearing Non-emergency contact: Primary Care Provider Call non-emergency contact if: you have any medication questions, your symptoms worsen and you have a fever Follow-up/Referrals: Jeison Gandhi MD [Primary Care Provider] - Diet: Regular Addtl Attending Provider Instructions: Mr. Noyola, You were admitted to the hospital for an asthma exacerbation, which means you had difficulty breathing, wheezing, and oxygenation issues when you came into the hospital. This most likely happened because you tested positive for an upper respiratory virus called, Rhinovirus, which is a common cold. During your hospitalization, you were given medications to improve your breathing, such as albuterol nebulizer to help open up your airway to improve your breathing. You were also given steroids to help with inflammation in your airways, that also contributed to your difficulty breathing you experienced. For your history of Atrial fibrillation, you were on telemetry to monitor your heart rhythm and it showed you were relatively stable throughout your hospitalization. Metoprolol was given for heart rate regulation, which you tolerated well. This medication will be continued outpatient and scripts have been sent your pharmacy. For diabetes management, you were given insulin to cover high blood sugars and for your carbohydrate intake. Blood sugrs remained stable and we feel it is okay for you to resume your home routine of diabetes management with metformin, glipizide and Jardiance. As for follow-up after your hospitalization, it is recommended that you continue care with a primary care provider. [facility] [employer] in [facility] is a free clinic located in [place] offering primary care services. Please call to make an appointment as soon as possible. It was a pleasure taking care of you. MEDICATION CHANGES: START: * Prednisone 20 mg (1Tab) daily- Next dose: 11/10 at 9am * Indication- Steroid for asthma treatment with exacerbation * Duration- 4 days, END on 11/13 * Eliquis (apixaban) 5 mg Twice daily- Next dose: 11/09 at 9pm * Indication- Anti-coagulation for Atrial Fibrillation to prevent blood clot. * Duration- Ongoing * Special Instructions- Can cause excessive bleeding with cuts. CONTINUE: * Metoprolol- Next dose 11/09 at 9pm * Montelukast- Next dose 11/10 at anytime * Atorvastatin- Next dose 11/10 in morning * Jardiance- Next dose 11/09 when you receive the medicine * Glipizide- Next dose 11/10 to resume home routine * Metformin- Next dose 11/10 to resume home routine * Duloxetine- Next dose 11/09 in evening per home routine SUMMARY OF TEST RESULTS: Chest Xray showed no pleural effusion or pneumonia that caused your symptoms. RECOMMENDATIONS FOR FOLLOW-UP: Please make an appointment with primary care provider as soon as possible. Contact [facility] [employer] at [phone] to schedule an appointment. OTHER INSTRUCTIONS: Seek medical attention if you have: * temperature above 101 * chest pain or trouble breathing * abdominal pain, nausea, vomiting * diarrhea, dark stools or bloody stools * any unanswered questions or concerns Call 911 if symptoms are severe. Please take good care of yourself. It has been a pleasure taking care of you. Please take care of yourself. If you have any questions regarding your recent hospitalization please contact [facility] and request Coby Juarez @ [phone]. Pending Studies at Discharge: No Stand-Alone Forms: My [facility] [place], Smoking Cessation Medications and DC Order Prescriptions: New prednisone 20 mg Tablet 20 mg PO DAILY Qty: 4 0RF Continued albuterol sulfate 90 mcg/actuation HFA aerosol inhaler 2 inh inhalation Q4H PRN (Reason: shortness of breath or wheezing) Qty: 8.5 0RF Rx Instructions: PER PT "HAVE NOT BEEN ABLE TO GET PRESCRIPTIONS FOR 3 MONTHS, NO MONEY". ipratropium-albuterol 0.5 mg-3 mg(2.5 mg base)/3 mL Solution For Nebulization 3 ml INHALATION Q4H PRN (Reason: sob/wheezing) Rx Instructions: PER PT "HAVE NOT BEEN ABLE TO GET PRESCRIPTIONS FOR 3 MONTHS, NO MONEY". cyclobenzaprine 10 mg Tablet 10 mg PO BID PRN (Reason: Muscle Spasm) Qty: 30 0RF Rx Instructions: PER PT "HAVE NOT BEEN ABLE TO GET PRESCRIPTIONS FOR 3 MONTHS, NO MONEY". metformin 500 mg tablet 1,000 mg PO BIDM 30 Days Qty: 120 0RF Rx Instructions: PER PT "HAVE NOT BEEN ABLE TO GET PRESCRIPTIONS FOR 3 MONTHS, NO MONEY". atorvastatin 10 mg tablet 10 mg PO QAM Qty: 30 0RF Rx Instructions: PER PT "HAVE NOT BEEN ABLE TO GET PRESCRIPTIONS FOR 3 MONTHS, NO MONEY". metoprolol succinate [Toprol XL] 50 mg tablet extended release 24 hr 75 mg PO BID Qty: 90 0RF Rx Instructions: PER PT "HAVE NOT BEEN ABLE TO GET PRESCRIPTIONS FOR 3 MONTHS, NO MONEY". glipizide 5 mg tablet extended release 24hr 5 mg PO QAM Qty: 30 0RF Rx Instructions: PER PT "HAVE NOT BEEN ABLE TO GET PRESCRIPTIONS FOR 3 MONTHS, NO MONEY". montelukast 10 mg tablet 10 mg PO HS Qty: 30 0RF Rx Instructions: PER PT "HAVE NOT BEEN ABLE TO GET PRESCRIPTIONS FOR 3 MONTHS, NO MONEY". duloxetine 20 mg Capsule,Delayed Release(Dr/Ec) 20 mg PO HS Qty: 30 0RF Rx Instructions: PER PT "HAVE NOT BEEN ABLE TO GET PRESCRIPTIONS FOR 3 MONTHS, NO MONEY". Dulera 200-5 mcg/actuation HFA aerosol inhaler 2 inh INHALATION BID Qty: 1 0RF Rx Instructions: PER PT "HAVE NOT BEEN ABLE TO GET PRESCRIPTIONS FOR 3 MONTHS, NO MONEY". Eliquis 5 mg Tablet 5 mg PO BID Qty: 60 0RF Rx Instructions: PER PT "HAVE NOT BEEN ABLE TO GET PRESCRIPTIONS FOR 3 MONTHS, NO MONEY". Jardiance 25 mg Tablet 25 mg PO QAM Qty: 30 0RF Rx Instructions: PER PT "HAVE NOT BEEN ABLE TO GET PRESCRIPTIONS FOR 3 MONTHS, NO MONEY". prednisone 20 mg Tablet 20 mg PO DAILY Qty: 2 0RF Rx Instructions: PER PT "HAVE NOT BEEN ABLE TO GET PRESCRIPTIONS FOR 3 MONTHS, NO MONEY". Discharge Orders: Discharge Order (Routine); Ordered 11/09/24 Ordered By: Avis Buitrago/Other Patient Handouts: Managing Type 2 Diabetes, Asthma Medicine, AFib Preventing Stroke, Asthma Triggers Control Home Work Admission Data Admit Date/Time: 11/07/24 15:32 Attending Provider: Wilber Coronado Admit Provider: Luh Nicolas Primary Care Provider: Jeison Gandhi Other Providers: Luh Nicolas
[2024-11-09 11:26] VITALS: BP 148/98
[2024-11-09 12:51] VITALS: PULSE 62; RESP 16; O2SAT 93
== END 2024-11-09 13:55 | disposition home or self-care (01) | DRG 202 ==
LOC: ED 12:34 → 2E 15:32 → SUATTDRO 15:32 → 2E 17:05